=== PATIENT | female | born 1985 ===

== ENCOUNTER 2025-02-05 22:44 | Emergency (ER) | payer OTHER, SELFPAY ==
--- OUTSIDE RECORDS SUMMARY | 2024-12-25 08:00 | XMS_ITS | Encounter Summary ---
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 [address] [place] [phone] Phone: tel: fax: Department of Oncology in [place], [place] [address] [place] [phone] Phone: tel: Referral ID Status Reason Start Date Expiration Date V isits Requested Visits Authorized [id number] Authorized 11/26/2024 05/26/2025 12 99 Encounter Details Date Type Department Care Team (Late st Contact Info) Description 12/25/2024 9:00 AM CDT Lab Department of Oncology in [place], [place] [address] [place] [phone] Bradley Booker M.D. [address] [place] [phone] 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) (Primary Dx) Social History Tobacco Use Types Packs/Day Years Used Date Smoking Tobacco: Never Passive Smoke Exposure: Never Smokeless Tobacco: Never Alcohol Use Standard Drinks/Week Comments Never 0 (1 standard drink = 0.6 oz pur e alcohol) Hunger Vital Sign Answer Date Recorded Within the past 12 months, y ou worried that your food would run out before you got the money to buy more. Never true 11/18/19 25 Within the past 12 months, t he food you bought just didn't last and you didn't have money to get more. Never true 11/17/2024 PRAPARE - Transportation Answer Date Re corded In the past 12 months, has l ack of transportation kept you from medical appointments or from getting medications? No 04/2024 In the past 12 months, has l ack of transportation kept you from meetings, work, or from getting things needed for daily living? No 11/17/2024 [facility] Utilities Answer Date Recorded In the past 12 months has e electric, gas, oil, or water company threatened to shut off services in your home? No 11/17/2024 Housing Stability Answer Date Recorded What is your living situation today? I have a [facility] place to live 11/17/2024 Comments No Sex and Gender Information Value Date Recorded Sex Assigned at Female 11/17/2024 12:38 PM CDT Legal Sex Female 12:31 PM CDT Gender Identity Female 11/17/2024 12:38 PM CDT Sexual Orientation Straight 11/17/2024 12 :38 PM CDT documented as of this encounter Plan of Treatment Upcoming Encounters Date Type Department Care Team (Latest Contact Info) Description 02/12/2025 8:45 AM TURNER SPLITTER MACHINE OPERATOR Lab Department of Oncology in [address] [phone] Bradley Booker M.D. [address] [place] [phone] 02/12/2025 11:30 AM TURNER SPLITTER MACHINE OPERATOR Infusion Department of Oncology in [address] [phone] Bradley Booker M.D. [address] [place] [phone] 02/17/2025 9:15 AM TURNER SPLITTER MACHINE OPERATOR Clinical Communication Virtual Review in [place], [place] 200 [place] [address] 02/18/2025 8:00 AM TURNER SPLITTER MACHINE OPERATOR Lab Department of Oncology in [place], [place] [address] [place] [phone] Bradley Booker M.D. [address] [place] [phone] 02/18/2025 10:00 AM TURNER SPLITTER MACHINE OPERATOR Office Visit Division of Hematology in [place], [place] [address] [place] [phone] Latrice Gomez M.D. [address] [place] [phone] 02/18/2025 10:30 AM TURNER SPLITTER MACHINE OPERATOR Infusion Department of Oncology in [place], [place] [address] [place] [phone] Bradley Booker M.D. [address] [place] [phone] 02/26/2025 7:00 AM TURNER SPLITTER MACHINE OPERATOR Lab Department of Oncology in [place], [place] [address] [place] [phone] Bradley Booker M.D. [address] [place] [phone] 02/26/2025 9:00 AM TURNER SPLITTER MACHINE OPERATOR Infusion Department of Oncology in [address] [phone] Bradley Booker M.D. [address] [place] [phone] 03/05/2025 7:00 AM TURNER SPLITTER MACHINE OPERATOR Lab Department of Oncology in [address] [phone] Bradley Booker M.D. [address] [place] [phone] 03/05/2025 9:00 AM TURNER SPLITTER MACHINE OPERATOR Infusion Department of Oncology in [place], [place] [address] [place] [phone] Bradley Booker M.D. [address] [place] [phone] 03/19/2025 10:30 AM TURNER SPLITTER MACHINE OPERATOR Lab Department of Laboratory Medicine and Pathology, [facility] in [place], [place] [address] [place] [phone] Bradley Booker M.D. [address] [place] [phone] 03/19/2025 2:00 PM TURNER SPLITTER MACHINE OPERATOR Infusion Department of Oncology in [address] [phone] Bradley Booker M.D. [address] [place] [phone] 03/23/2025 10:00 AM TURNER SPLITTER MACHINE OPERATOR Telemedicine Division of Breast and Melanoma Surgical Oncology in [address] [phone] Kell Craven APRN, C.N.P., D.N.P. [address] [place] [phone] 03/25/2025 3:20 PM TURNER SPLITTER MACHINE OPERATOR Comprehensive Visit Department of Oncology in [address] [phone] Kilo Patel APRN, C.N.P., D.N.P. [address] [place] [phone] 04/08/2025 9:30 AM TURNER SPLITTER MACHINE OPERATOR Clinical Communication Virtual Review in [place], [place] 200 [place] [address] 04/09/2025 8:00 AM TURNER SPLITTER MACHINE OPERATOR Lab Department of Oncology in [place], [place] [address] [place] [phone] Bradley Booker M.D. [address] [place] [phone] 04/09/2025 10:00 AM TURNER SPLITTER MACHINE OPERATOR Office Visit Department of Oncology in [place], [place] [address] [place] [phone] Bardley Booker M.D. [address] [place] [phone] 04/09/2025 11:00 AM TURNER SPLITTER MACHINE OPERATOR Infusion Department of Oncology in [place], [place] [address] [place] [phone] Bradley Booker M.D. 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 Blood (Blood, Venous) 12/25/2024 9:24 AM CDT 12/25/2024 9:30 AM CDT Bradley Booker M.D. LAB BLOOD ADD-ON Final Result [facility] 200 [place] [address], [facility] DTL [facility] 200 [place] [address] * (ABNORMAL) CBC, Chemotherapy, No Alerts (12/25/2024 9:24 AM CDT) [facility] Hemoglobin 12.5 11.6 - 15.0 g/dL 12/25/2024 9:36 AM CDT [facility] Platelet Count 376(H) 157 - 371 x10(9)/L 12/25/2024 9:36 AM CDT [facility] Leukocytes 5.6 3.4 - 9.6 x10(9)/L 12/25/2024 9:36 AM CDT [facility] Neutrophils 3.55 1.56 - 6.45 x10(9)/L 12/25/2024 9:36 AM CDT [facility] Blood (Blood, Venous) 12/25/2024 9:24 AM CDT 12/25/2024 9:34 AM CDT Bradley Booker M.D. LAB BLOOD ADD-ON Final Result Performing Organization Address City/[facility]/ZIP Co de Phone Number [facility] 200 [place] [address], [facility] METH [facility] 200 [place] [address] DHPM [facility] 200 [place] [address] documented in this encounter Visit Diagnoses Diagnosis 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)- Primary documented in this encounter Administered Medications Inactive Administered Medications - up to 3 most recent administrations Medication Order MAR Action Action Date Dose Rate Site heparin flush 500 Units 500 Units, intra-catheter, As needed, line care, Starting on Sat12/25/24 at 0909, When IVAD accessed and not infusing: When no infusion to maintain patency flush every 7 days following NaCL flush. 5 mL (500 units) of Heparin 100 units/mL to each port/lumen. When IVAD not accessed or infusing: When no infusion to maintain patency flush every 28 days following NaCL flush. 5 mL (500 units) of Heparin 100 units/mL to each port/lumen.Indications:Malignan t Neoplasm Of Breast 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 (HCC) Given 12/25/2024 9:10 AM CDT 500 Units sodium chloride 0.9 % injection 20-40 mL 20-40 mL, intra-catheter, As needed, line care, Starting on Sat12/25/24 at 0909, When IVAD accessed and infusing: Flush prior to blood sampling, post blood transfusion or post blood sampling. 20 mL to each port/lumen.Indications:Malignan t Neoplasm Of Breast 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 (HCC) Given 12/25/2024 9:10 AM CDT 40 mL documented in this encounter Additional Health Concerns Infection Onset Date Last Indicated Resolved Time Protective Environment 12/11/2024 12/11/2024 documented as of this encounter
--- OUTSIDE RECORDS SUMMARY | 2024-12-25 10:00 | XMS_ITS | Encounter Summary ---
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 [address] [place] [phone] Phone: tel: fax: Department of Oncology in [place], [place] [address] [place] [phone] Phone: tel: Referral ID Status Reason Start Date Expiration Date V isits Requested Visits Authorized [id number] Authorized 11/26/2024 05/26/2025 12 99 Encounter Details Date Type Department Care Team (Late st Contact Info) Description 12/25/2024 11:00 AM CDT Infusion Department of Oncology in [place], [place] [address] [place] [phone] Katrina Yarbrough M.D. [address] [place] [address] [phone] 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 [...] things needed for daily living? No 11/17/2024 [facility] Utilities Answer Date Recorded In the past 12 months has e electric, gas, oil, or water company threatened to shut off services in your home? No 11/17/2024 Housing Stability Answer Date Recorded What is your living situation today? I have a [facility] place to live 11/17/2024 Comments No Sex and Gender Information Value Date Recorded Sex Assigned at Female 11/17/2024 12:38 PM CDT Legal Sex Female 12:31 PM CDT Gender Identity Female 11/17/2024 12:38 PM CDT Sexual Orientation Straight 11/17/2024 12 :38 PM CDT documented as of this encounter Last Filed Vital Signs Vital Sign Reading Time Taken Comments Blood Pressure 123/73 12/25/2024 11:54 AM CDT Pulse 75 12/25/2024 11:54 AM CDT Temperature 36.3 C (97.3 F) 12/25/2024 11:54 AM CDT Respiratory Rate - - Oxygen Saturation - - Inhaled Oxygen Concentration - - Weight 101 kg (223 lb 7 oz) 12/25/2024 11:54 AM CDT Height - - Body Mass Index 37.5 11/20/2024 9:41 AM CDT documented in this encounter Plan of Treatment Upcoming Encounters Date Type Department Care Team (Latest Contact Info) Description 02/12/2025 8:45 AM PUFF IRON OPERATOR Lab Department of Oncology in [place], [place] 200 [place] [address] Bradley Booker M.D. 200 [place] [phone] 02/12/2025 11:30 AM PUFF IRON OPERATOR Infusion Department of Oncology in [address] [phone] Bradley Booker M.D. [address] [place] [phone] 02/17/2025 9:15 AM PUFF IRON OPERATOR Clinical Communication Virtual Review in [place], [place] 200 [place] [phone] 02/18/2025 8:00 AM PUFF IRON OPERATOR Lab Department of Oncology in [address] [phone] Bradley Booker M.D. [address] [place] [phone] 02/18/2025 10:00 AM PUFF IRON OPERATOR Office Visit Division of Hematology in [address] [phone] Latrice Gomez M.D. [address] [place] [phone] 02/18/2025 10:30 AM PUFF IRON OPERATOR Infusion Department of Oncology in [address] [phone] Bradley Booker M.D. [address] [place] [phone] 02/26/2025 7:00 AM PUFF IRON OPERATOR Lab Department of Oncology in [address] [phone] Bradley Booker M.D. [address] [place] [phone] 02/26/2025 9:00 AM PUFF IRON OPERATOR Infusion Department of Oncology in [address] [phone] Bradley Booker M.D. [address] [place] [phone] 03/05/2025 7:00 AM PUFF IRON OPERATOR Lab Department of Oncology in [place], [place] [address] [place] [address] Bradley Booker M.D. [address] [place] [phone] 03/05/2025 9:00 AM PUFF IRON OPERATOR Infusion Department of Oncology in [place], [place] [address] [place] [phone] Bradley Booker M.D. [address] [place] [phone] 03/19/2025 10:30 AM PUFF IRON OPERATOR Lab Department of Laboratory Medicine and Pathology, [facility] in [place], [place] [address] [place] [phone] Bradley Booker M.D. [address] [place] [phone] 03/19/2025 2:00 PM PUFF IRON OPERATOR Infusion Department of Oncology in [place], [place] [address] [place] [phone] Bradley Booker M.D. [address] [place] [phone] 03/23/2025 10:00 AM PUFF IRON OPERATOR Telemedicine Division of Breast and Melanoma Surgical Oncology in [place], [place] [address] [place] [phone] Kell Craven APRN, C.N.P., D.N.P. [address] [place] [phone] 03/25/2025 3:20 PM PUFF IRON OPERATOR Comprehensive Visit Department of Oncology in [address] [phone] Kilo Patel APRN, C.N.P., D.N.P. [address] [place] [phone] 04/08/2025 9:30 AM PUFF IRON OPERATOR Clinical Communication Virtual Review in [place], [place] 200 [place] [address] 04/09/2025 8:00 AM PUFF IRON OPERATOR Lab Department of Oncology in [address] [phone] Bradley Booker M.D. [address] [place] [phone] 04/09/2025 10:00 AM PUFF IRON OPERATOR Office Visit Department of Oncology in [address] [phone] Bradley Booker M.D. [address] [place] [phone] 04/09/2025 11:00 AM PUFF IRON OPERATOR Infusion Department of Oncology in [address] [phone] Bradley Booker M.D. [address] [place] [phone] documented as of this encounter Visit Diagnoses Diagnosis 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)- Primary documented in this encounter Administered Medications Inactive Administered Medications - up to 3 most recent administrations Medication Order MAR Action Action Date Dose Rate Site CARBOplatin 230 mg in NaCl 0.9% 298 mL IVPB (Paraplatin) 230 mg (rounded from 225 mg, Target AUC = 1.5), intravenous, at 596 mL/hr, Administer over 30 Minutes, Once, On Sat12/25/24 at 1345, For 1 doseIndications: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) New Bag 12/25/2024 2:00 PM CDT 230 mg 596 mL/hr dexAMETHasone injection 10 mg (Decadron) 10 mg, intravenous, Once, On Sat12/25/24 at 1215, For 1 doseIndications: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) Given 12/25/2024 12:17 PM CDT 10 mg diphenhydrAMINE injection 25 mg (BenadryL) 25 mg, intravenous, Once, On Sat12/25/24 at 1215, For 1 dose, Give prior to PACLitaxel.Indications:Hanna gnant Neoplasm Of Breast 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 (HCC) Given 12/25/2024 12:17 PM CDT 25 mg famotidine injection 20 mg (Pepcid) 20 mg, intravenous, Once, On Sat12/25/24 at 1215, For 1 dose, Give prior to PACLitaxelIndications:Malig nant Neoplasm Of Breast 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 (HCC) Given 12/25/2024 12:17 PM CDT 20 mg heparin flush 500 Units 500 Units, intra-catheter, As needed, line care, Starting on Sat12/25/24 at 1148, When IVAD accessed and not infusing: When no infusion to maintain patency flush every 7 days following NaCL flush. 5 mL (500 units) of Heparin 100 units/mL to each port/lumen. When IVAD not accessed or infusing: When no infusion to maintain patency flush every 28 days following NaCL flush. 5 mL (500 units) of Heparin 100 units/mL to each port/lumen.Indications:Hanna gnant Neoplasm Of Breast 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 (HCC) Given 12/25/2024 2:36 PM CDT 500 Units PACLitaxeL 174 mg in NaCl 0.9% (non-PVC/non-DEHP) 304 mL IVPB (TaxoL) 174 mg (rounded from 173.6 mg = 80 mg/m2 2.17 m2 Treatment Plan BSA from Measured weight), intravenous, at 304 mL/hr, Administer over 1 Hours, Once, On Sat12/25/24 at 1245, For 1 dose, Administer via 0.2 or 0.22 micron filter (Use non-PVC container and set). Administer via 0.2 or 0.22 micron filter.Indications:Malignan t Neoplasm Of Breast 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 (HCC) New Bag 12/25/2024 12:59 PM CDT 174 mg 304 mL/hr palonosetron injection 0.25 mg (Aloxi) 0.25 mg, intravenous, Once, On Sat12/25/24 at 1215, For 1 doseIndications: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) Given 12/25/2024 12:17 PM CDT 0.25 mg sodium chloride 0.9 % injection 10-20 mL 10-20 mL, intra-catheter, As needed, line care, Starting on Sat12/25/24 at 1148, When IVAD accessed and infusing: Flush prior to and following infusion, between multiple consecutive infusions. 10 mL to each port/lumen.Indications:Hanna gnant Neoplasm Of Breast 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 (HCC) Given 12/25/2024 2:36 PM CDT 10 mL Given 12/25/2024 12:17 PM CDT 10 mL documented in this encounter Additional Health Concerns Infection Onset Date Last Indicated Resolved Time Protective Environment 12/11/2024 12/11/2024 documented as of this encounter
--- OUTSIDE RECORDS SUMMARY | 2024-12-28 14:34 | XMS_ITS | Encounter Summary ---
Author Organization [facility] Address [address] [place] [id number] Care Team Providers Care Instructional Systems Design Consultant Name Role Phone [facility] Primar Care Provider Reason for Visit * Reason Comments Fever Encounter Details Date Type Department Care Team (Late st Contact Info) Description 12/28/2024 3:34 PM CDT - 12/28/2024 5:13 PM CDT Emergency [facility] Emergency Dept [address] [place] [id number] Russ Ibrahim MD [facility] [address] [place], [place] [id number] Pneumonia of left lower lobe due to infectious organism (Primary Dx) Discharge Disposition: Home or Self Care Social History Tobacco Use Types Packs/Day Years Used Date Smoking Tobacco: Never Assessed Comments Unknown Sex and Gender Information Value Date Recorded Sex Assigned at Not on file Legal Sex Female 2:59 PM CDT Gender Identity Not on file Sexual Orientation Not on file documented as of this encounter Last Filed Vital Signs Vital Sign Reading Time Taken Comments Blood Pressure 112/64 12/28/2024 5:12 PM CDT Pulse 95 12/28/2024 5:12 PM CDT Temperature 37.7 C (99.9 F) 12/28/2024 3:31 PM CDT Respiratory Rate 18 12/28/2024 5:12 PM CDT Oxygen Saturation 99% 12/28/2024 5:12 PM CDT Inhaled Oxygen Concentration - - Weight 101.6 kg (223 lb 15.8 oz) 12/28/2024 3:31 PM CDT Height 162.6 cm (5' 4) 12/28/2024 3:31 PM CDT Body Mass Index 38.45 12/28/2024 3:31 PM CDT documented in this encounter Discharge Instructions * Discharge Instructions* Russ Ibrahim MD - 12/28/2024 4:51 PM CDT We have recommended antibiotics due to active chemotherapy treatment in the setting of an x-ray that shows some inflammation of the left lung base. This still could be viral. Your COVID test is negative you are not neutropenic. No signs of sepsis. Cultures of the blood were obtained if these grow something that need different treatment we will call you. Please complete course of antibiotics and follow-up with your hematology oncologist at [facility]. Thanks for your patience and understanding today. * Attachments The following attachments cannot be sent through Care Everywhere. * Pneumonia (Maldivian) documented in this encounter Medications at Time of Discharge doxycycline hyclate (VIBRAMYCIN) 100 MG capsule Take 1 capsule (100 mg) by mouth 2 times daily for 7 days. 14 capsule 12/28/2024 01/04/2025 documented as of this encounter ED Notes * Russ Ibrahim MD - 12/28/2024 3:42 PM CDT Emergency Department Note History of Present Illness Chief Complaint Fever HPI Jazlyn Martin is a 39 year old female who presents with fever. Patient is a 39-year-old female with known breast cancer currently being treated at [facility] with chemotherapy last chemotherapy dose was Saturday. Today she developed a fever to 102. Oncology clinic where she was recommended to go to the nearest emergency room for assessment. Patient has had a slight cough. Did not take any meds for fever. Has had no vomiting or diarrhea. Other children have been sick with a cough and 1 had an ear infection. Independent Historian None Review of External Notes Past Medical History Medical History and Problem List No past medical history on file. Medications No current outpatient medications on file. Surgical History No past surgical history on file. Physical Exam Patient Vitals for the past 24 hrs: BP Temp Temp src Pulse Resp SpO2 Height Weight 12/28/24 1531 116/65 99.9 ??F (37.7 ??C) Oral 101 18 96 % 1.626 m (5' 4) 101.6 kg (223 lb 15.8 oz) Physical Exam Vitals and nursing note reviewed. HENT: Head: Normocephalic. Eyes: Pupils: Pupils are equal, round, and reactive to light. Cardiovascular: Rate and Rhythm: Normal rate. Pulmonary: Effort: Pulmonary effort is normal. Abdominal: General: Abdomen is flat. Bowel sounds are normal. Musculoskeletal: General: Normal range of motion. Skin: General: Skin is warm. Capillary Refill: Capillary refill takes less than 2 seconds. Neurological: General: No focal deficit present. Mental Status: She is alert. Psychiatric: Mood and Affect: Mood normal. Diagnostics Lab Results Labs Ordered and Resulted from Time of ED Arrival to Time of ED Departure COMPREHENSIVE METABOLIC PANEL (LIMITED OCCURRENCES) - Abnormal Result Value Sodium 136 Potassium 3.9 Carbon Dioxide (CO2) 26 Anion Gap 11 Urea Nitrogen 11.6 Creatinine 0.70 GFR Estimate >90 Calcium 9.1 Chloride 99 Glucose 112 (*) Alkaline Phosphatase 80 AST 16 ALT 16 Protein Total 7.3 Albumin 4.4 Bilirubin Total 0.6 ROUTINE UA WITH MICROSCOPIC REFLEX TO CULTURE - Abnormal Color Urine Light Yellow Appearance Urine Clear Glucose Urine Negative Bilirubin Urine Negative Ketones Urine Negative Specific [place] Urine 1.020 Blood Urine Negative pH Urine 8.5 (*) Protein Albumin Urine Negative Urobilinogen Urine Normal Nitrite Urine Negative Leukocyte Esterase Urine Negative Mucus Urine Present (*) RBC Urine <1 WBC Urine 1 Squamous Epithelials Urine 3 (*) CBC WITH PLATELETS AND DIFFERENTIAL - Abnormal WBC Count 11.69 (*) RBC Count 4.44 Hemoglobin 12.7 Hematocrit 37.9 MCV 85.4 MCH 28.6 MCHC 33.5 RDW 13.4 Platelet Count 391 % Neutrophils 90.1 % Lymphocytes 4.9 % Monocytes 3.8 % Eosinophils 0.3 % Basophils 0.3 % Immature Granulocytes 0.6 NRBCs per 100 WBC 0.0 Absolute Neutrophils 10.53 (*) Absolute Lymphocytes 0.57 (*) Absolute Monocytes 0.44 Absolute Eosinophils 0.04 Absolute Basophils 0.04 Absolute Immature Granulocytes 0.07 Absolute NRBCs <0.03 LACTIC ACID WHOLE BLOOD WITH 1X REPEAT IN 2 HR WHEN >2 - Normal Lactic Acid, Initial 0.7 INFLUENZA A/B, RSV AND SARS-COV2 PCR - Normal Influenza A PCR Negative Influenza B PCR Negative RSV PCR Negative SARS CoV2 PCR Negative BLOOD CULTURE BLOOD CULTURE Imaging Chest XR, PA & LAT Final Result IMPRESSION: Mild opacity in the left lower lobe retrocardiac region may be related to atelectasis or pneumonia. The right lung is clear. Right Port-A-Cath, tip in the low SVC. No pleural effusions. Independent Interpretation CXR: haziness left lung base. ED Course Medications Administered Medications sodium chloride 0.9% BOLUS 1,000 mL (has no administration in time range) Procedures Procedures Discussion of Management None ED Course Additional Documentation None Medical Decision Making / Diagnosis [facility] Diagnoses: None MIPS None MDM Jazlyn Martin is a 39 year old female presents with self-described fever to 102. Has children at home are also ill. COVID and flu testing are negative. Patient is actively on chemotherapy. Lab work was ascertained due to port access and chemo. No neutropenia noted. Temperature here 99 9. IV fluidsgiven. No signs of sepsis. X-ray does confirm a small patchy pneumonia still could be viral patienthas a history of C. difficile 2 years ago but however due to active chemotherapy use and x-ray evidence for pneumonia recommended empiric antibiotics with doxycycline. Will recommend discharge home without signs of sepsis. Blood cultures pending at the time of discharge. Disposition The patient was discharged. Diagnosis ICD-10-CM 1. Pneumonia of left lower lobe due to infectious organism J18.9 Discharge Medications Current Discharge Medication List START taking these medications Details doxycycline hyclate (VIBRAMYCIN) 100 MG capsule Take 1 capsule (100 mg) by mouth 2 times daily for 7 days. Qty: 14 capsule, Refills: 0 MD Patrice Reich Brian Samuel, MD 12/28/24 1710 * Luanne Jimenez RN - 12/28/2024 3:30 PM CDT Pt comes in after having fever over 100.5 at home, pt currently receiving chemo for breast cancer. Pt's last run was on [place]. Pt had temp of 99.9 in triage. Pt states that her only symptoms are lethargy and malaise. documented in this encounter Plan of Treatment Not on file documented as of this encounter Procedures Procedure Name Priority Date/Time Associated Diagnosis Comments XR CHEST 2 VIEWS STAT 12/28/2024 4:29 PM CDT BLOOD CULTURE STAT 12/28/2024 4:15 PM CDT EXTRA TUBE STAT 12/28/2024 3:58 PM CDT EXTRA RED TOP TUBE STAT 12/28/2024 3: 58 PM CDT EXTRA BLUE TOP TUBE STAT 12/28/2024 3 :58 PM CDT LACTIC ACID WHOLE BLOOD WITH 1X REPEAT IN 2 HR WHEN >2 STAT 12/28/2024 3:57 PM CDT CBC WITH PLATELETS AND DIFFERENTIAL STAT 12/28/2024 3:57 PM CDT CBC WITH PLATELETS AND DIFFERENTIAL (LIMITED OCCURRENCES) STAT 12/28/2024 3:57 PM CDT COMPREHENSIVE METABOLIC PANEL (LIMITED OCCURRENCES) STAT 12/28/2024 3:57 PM CDT BLOOD CULTURE STAT 12/28/2024 3:57 PM CDT ROUTINE UA WITH MICROSCOPIC REFLEX TO CULTURE STAT 12/28/2024 3:54 PM CDT INFLUENZA A/B, RSV AND SARS-COV2 PCR STAT 12/28/2024 3:53 PM CDT documented in this encounter Results * Chest XR, PA & LAT (12/28/2024 4:29 PM CDT) Anatomical Region Laterality Modality Chest Digital Radiogra phy 12/28/2024 4:29 PM CDT Impressions 12/28/2024 4:41 PM CDT IMPRESSION: Mild opacity in the left lower lobe retrocardiac region may be related to atelectasis or pneumonia. The right lung is clear. Right Port-A-Cath, tip in the low SVC. No pleural effusions. Narrative 12/28/2024 4:41 PM CDT EXAM: XR CHEST 2 VIEWS LOCATION: [facility] DATE: 12/28/2024 INDICATION: Fever. Cough. COMPARISON: None. Procedure Note Paras Deng MD - 12/28/2024 EXAM: XR CHEST 2 VIEWS LOCATION: [facility] DATE: 12/28/2024 INDICATION: Fever. Cough. COMPARISON: None. IMPRESSION: Mild opacity in the left lower lobe retrocardiac region may berelated to atelectasis or pneumonia. The right lung is clear. [id number], tip in the low SVC. No pleural effusions. Russ Ibrahim MD IMG DIAGNOSTIC IMAGING O RDERABLES Final Result * Blood Culture Peripheral blood (BC) Arm, Left (12/28/2024 4:15 PM CDT) Culture No Growth 01/02/2025 8:46 PM CDT [facility] Peripheral blood (BC) STRUCTURE OF LEFT UPPER LIMB / Unknown Venipuncture / Unknown 12/28/2024 4:15 PM CDT 12/28/2024 4:18 PM CDT Russ Ibrahim MD LAB - MICRO GENERAL ORDE RABLES Final Result [facility] Inf. Diseases Diag. Lab [address] [facility] [place] [address], [place] * Extra Red Top Tube (12/28/2024 3:58 PM CDT) Hold Specimen JIC 12/28/2024 5:17 PM CDT [facility] Blood BLOOD SPECIMEN / Unknown Venipuncture / Unknown 12/28/2024 3:58 PM CDT 12/28/2024 4:04 PM CDT Russ Ibrahim MD LAB - BLOOD ORDERABLES F inal Result LABORATORY [facility] Lab [address] Lab (1st floor, no room number) [address] * Extra Blue Top Tube (12/28/2024 3:58 PM CDT) Hold Specimen JIC 12/28/2024 5:17 PM CDT [facility] Blood BLOOD SPECIMEN / Unknown Venipuncture / Unknown 12/28/2024 3:58 PM CDT 12/28/2024 4:04 PM CDT Russ Ibrahim MD LAB - BLOOD ORDERABLES F inal Result Performing Organization Address City/[facility]/ZIP Co de Phone Number LABORATORY [facility] Lab [address] Lab (1st floor, no room number) [address] * (ABNORMAL) CBC with platelets and differential (12/28/2024 3:57 PM CDT) WBC Count 11.69(H) 4.00 - 11.00 10e3/uL 12/28/2024 4:09 PM CDT [facility] RBC Count 4.44 3.80 - 5.20 10e6/uL 12/28/2024 4:09 PM CDT [facility] Hemoglobin 12.7 11.7 - 15.7 g/dL 12/28/2024 4:09 PM CDT [facility] Hematocrit 37.9 35.0 - 47.0 % 12/28/2024 4:09 PM CDT [facility] MCV 85.4 78.0 - 100.0 fL 12/28/2024 4:09 PM CDT [facility] MCH 28.6 26.5 - 33.0 pg 12/28/2024 4:09 PM CDT [facility] MCHC 33.5 31.5 - 36.5 g/dL 12/28/2024 4:09 PM CDT [facility] RDW 13.4 10.0 - 15.0 % 12/28/2024 4:09 PM CDT [facility] Platelet Count 391 150 - 450 10e3/uL 12/28/2024 4:09 PM CDT [facility] % Neutrophils 90.1 % 12/28/2024 4:09 PM CDT [facility] % Lymphocytes 4.9 % 12/28/2024 4:09 PM CDT [facility] % Monocytes 3.8 % 12/28/2024 4:09 PM CDT [facility] % Eosinophils 0.3 % 12/28/2024 4:09 PM CDT [facility] % Basophils 0.3 % 12/28/2024 4:09 PM CDT [facility] % Immature Granulocytes 0.6 % 12/28/2024 4:09 PM CDT [facility] NRBCs per 100 WBC 0.0 <1.0 /100 12/28/2024 4:09 PM CDT [facility] Absolute Neutrophils 10.53(H) 1.60 - 8.30 10e3/uL 12/28/2024 4:09 PM CDT [facility] Absolute Lymphocytes 0.57(L) 0.80 - 5.30 10e3/uL 12/28/2024 4:09 PM CDT [facility] Absolute Monocytes 0.44 0.00 - 1.30 10e3/uL 12/28/2024 4:09 PM CDT [facility] Absolute Eosinophils 0.04 0.00 - 0.70 10e3/uL 12/28/2024 4:09 PM CDT [facility] Absolute Basophils 0.04 0.00 - 0.20 10e3/uL 12/28/2024 4:09 PM CDT [facility] Absolute Immature Granulocytes 0.07 <=0.40 10e3/uL 12/28/2024 4:09 PM CDT [facility] Absolute NRBCs <0.03 10e3/uL 12/28/2024 4:09 PM CDT [facility] Blood BLOOD SPECIMEN / Unknown Venipuncture / Unknown 12/28/2024 3:57 PM CDT 12/28/2024 4:04 PM CDT Russ Ibrahim MD LAB - BLOOD ORDERABLES F inal Result LABORATORY [facility] Lab [address] Lab (1st floor, no room number) [place] [address] * Blood Culture Peripheral blood (BC) Arm, Right (12/28/2024 3:57 PM CDT) Culture No Growth 01/02/2025 6:16 PM CDT [facility] Peripheral blood (BC) STRUCTURE OF RIGHT UPPER LIMB / Unknown Venipuncture / Unknown 12/28/2024 3:57 PM CDT 12/28/2024 4:04 PM CDT Russ Ibrahim MD LAB - MICRO GENERAL ORDE RABLES Final Result [facility] Inf. Diseases Diag. Lab [address] [facility] [place] [address] * Lactic acid whole blood with 1x repeat in 2 hr when >2 (12/28/2024 3:57 PM CDT) Pathologist [facility] Lactic Acid, Initial 0.7 0.7 - 2.0 mmol/L 12/28/2024 4:08 PM CDT LABORATORY Blood BLOOD SPECIMEN / Unknown Venipuncture / Unknown 12/28/2024 3:57 PM CDT 12/28/2024 4:06 PM CDT Russ Ibrahim MD LAB - BLOOD ORDERABLES F inal Result LABORATORY [facility] [address] Lab (1st floor, no room number) [place] [address] * (ABNORMAL) Comprehensive Metabolic Panel (Limited Occurrences) (12/28/2024 3:57 PM CDT) Sodium 136 135 - 145 mmol/L 12/28/2024 4:30 PM CDT LABORATORY Potassium 3.9 3.4 - 5.3 mmol/L 12/28/2024 4:30 PM CDT LABORATORY Carbon Dioxide (CO2) 26 22 - 29 mmol/L 12/28/2024 4:30 PM CDT LABORATORY Anion Gap 11 7 - 15 mmol/L 12/28/2024 4:30 PM CDT LABORATORY Urea Nitrogen 11.6 6.0 - 20.0 mg/dL 12/28/2024 4:30 PM CDT LABORATORY Creatinine 0.70 0.51 - 0.95 mg/dL 12/28/2024 4:30 PM CDT LABORATORY GFR Estimate >90 >60 mL/min/1.7 3m2 12/28/2024 4:30 PM CDT LABORATORY Comment:eGFR calculated us2020 CKD-EPI equation. Calcium 9.1 8.8 - 10.4 mg/dL 12/28/2024 4:30 PM CDT LABORATORY Chloride 99 98 - 107 mmol/L 12/28/2024 4:30 PM CDT LABORATORY Glucose 112(H) 70 - 99 mg/dL 12/28/2024 4:30 PM CDT LABORATORY Alkaline Phosphatase 80 40 - 150 U/L 12/28/2024 4:30 PM CDT LABORATORY AST 16 0 - 45 U/L 12/28/2024 4:30 PM CDT LABORATORY ALT 16 0 - 50 U/L 12/28/2024 4:30 PM CDT LABORATORY Protein Total 7.3 6.4 - 8.3 g/dL 12/28/2024 4:30 PM CDT LABORATORY Albumin 4.4 3.5 - 5.2 g/dL 12/28/2024 4:30 PM CDT LABORATORY Bilirubin Total 0.6 <=1.2 mg/dL 12/28/2024 4:30 PM CDT LABORATORY Blood BLOOD SPECIMEN / Unknown Venipuncture / Unknown 12/28/2024 3:57 PM CDT 12/28/2024 4:04 PM CDT us Russ Ibrahim MD LAB - BLOOD ORDERABLES F inal Result LABORATORY [facility] Lab [address] Lab (1st floor, no room number) [place] [address], [facility] * (ABNORMAL) UA with Microscopic reflex to Culture (12/28/2024 3:54 PM CDT) Color Urine Light Yellow Colorless, Straw, Light Yellow, Yellow 12/28/2024 4:15 PM CDT LABORATORY Appearance Urine Clear Clear 12/29/19 4:15 PM CDT LABORATORY Glucose Urine Negative Negative mg/dL 12/28/2024 4:15 PM CDT LABORATORY Bilirubin Urine Negative Negative 4:15 PM CDT LABORATORY Ketones Urine Negative Negative mg/dL 12/28/2024 4:15 PM CDT LABORATORY Specific [place] Urine 1.020 1.003 - 1.035 12/28/2024 4:15 PM CDT LABORATORY Blood Urine Negative Negative 12/28/2024 4:15 PM CDT LABORATORY pH Urine 8.5(H) 5.0 - 7.0 12/28/2024 4:15 PM CDT LABORATORY Protein Albumin Urine Negative Negative mg/dL 12/28/2024 4:15 PM CDT LABORATORY Urobilinogen Urine Normal Normal mg/dL 12/28/2024 4:15 PM CDT LABORATORY Nitrite Urine Negative Negative 12/28/2024 4:15 PM CDT LABORATORY Leukocyte Esterase Urine Negative Negative 12/28/2024 4:15 PM CDT LABORATORY Mucus Urine Present(A) None Seen /LPF 12/28/2024 4:15 PM CDT LABORATORY RBC Urine <1 <=2 /HPF 12/28/2024 4:15 PM CDT LABORATORY WBC Urine 1 <=5 /HPF 12/28/2024 4:15 PM CDT LABORATORY Squamous Epithelials Urine 3(H) <=1 /HPF 12/28/2024 4:15 PM CDT LABORATORY Urine MID-STREAM URINE SPECIMEN / Unknown Non-blood Collection / Unknown 12/28/2024 3:54 PM CDT 12/28/2024 4:03 PM CDT Narrative LABORATORY - 12/28/2024 4:15 PM CDT Urine Culture not indicated Russ Ibrahim MD LAB - URINE ORDERABLES F inal Result LABORATORY [facility] [address] [facility] Lab (1st floor, no room number) [place] [address], [facility] * Influenza A/B, RSV and SARS-CoV2 PCR (COVID-19) Nose (12/28/2024 3:53 PM CDT) Influenza A PCR Negative Negative 12/28/2024 4:45 PM CDT [facility] Influenza B PCR Negative Negative 12/28/2024 4:45 PM CDT [facility] RSV PCR Negative Negative 12/28/2024 4:45 PM CDT LABORATORY SARS CoV2 PCR Negative Negative 12/28/2024 4:45 PM CDT LABORATORY Comment:NEGATIVE: SARS-CoV-2 (COVID-19) RNA not detected, presumed negative. Swab NASAL STRUCTURE / Unknown Non-blood Collection / Unknown 12/28/2024 3:53 PM CDT 12/28/2024 4:04 PM CDT Narrative LABORATORY - 12/28/2024 4:45 PM CDT Testing was performed using the Xpert Xpress CoV2/Flu/RSV Assay on the [employer] GeneXpert Instrument. This test should be ordered for the detection of SARS- CoV2, influenza, and RSV viruses in individuals with signs and symptoms of respiratory tract infection. This test is for in vitro diagnostic use under the [place] FDA for laboratories certified under CLIA to perform high or moderate complexity testing. This test has been [place] FDA cleared. A negative result does not rule out the presence of PCR inhibitors in the specimen or target RNA in concentration below the limit of detection for the assay. If only one viral target is positive but coinfection with multiple targets is suspected, the sample should be re-tested with another FDA cleared, approved, or authorized test, if coninfection would change clinical management. This test was validated by the [facility]. These laboratories are certified under the Clinical Laboratory Improvement Amendments of 1988 (CLIA-88) as qualified to perfom high complexity laboratory testing. Russ Ibrahim MD LAB - MICRO GENERAL ABDALLAHector CORTESMELISSA Final Result [facility] Lab [address] [facility] Lab (1st floor, no room number) [place] [address], [facility] documented in this encounter Visit Diagnoses Diagnosis Pneumonia of left lower lobe due to infectious organism- Primary documented in this encounter Administered Medications Inactive Administered Medications - up to 3 most recent administrations Medication Order MAR Action Action Date Dose Rate Site doxycycline hyclate (VIBRAMYCIN) capsule 100 mg STAT, 100 mg, Oral, ONCE, On Sat12/28/24 at 1655, For 1 dose, Administer at least 2 hours before or after aluminum, calcium, iron, zinc or magnesium containing products., Indications: Community Acquired PneumoniaIndications:Commu nity Acquired Pneumonia $Given 12/28/2024 5:08 PM CDT 100 mg sodium chloride 0.9% BOLUS 1,000 mL Intravenous, 1,000 mL, ONCE, at 1,000 mL/hr, Administer over 1 Hours, On Sat12/28/24 at 1545, For 1 dose $New Bag 12/28/2024 4:01 PM CDT 1,000 mLs 1000 mL/hr documented in this encounter Active and Recently Administered Medications Times are shown in CDT. Scheduled Medication Order 12/26/2024 12/27/2024 12/28/2024 doxycycline hyclate (VIBRAMYCIN) capsule 100 mg (COMPLETED) STAT, 100 mg, Oral, ONCE, On Sat12/28/24 at 1655, For 1 dose, Administer at least 2 hours before or after aluminum, calcium, iron, zinc or magnesium containing products., Indications: Community Acquired Pneumonia 1708 ($Given - Provi jacob: Terra Archibald RN) sodium chloride 0.9% BOLUS 1,000 mL (COMPLETED) Intravenous, 1,000 mL, ONCE, at 1,000 mL/hr, Administer over 1 Hours, On Sat12/28/24 at 1545, For 1 dose 1601 ($New Bag - Pro vider: Aga Ying RN)1700 (Stopped - Provider: Terra Archibald RN) documented in this encounter Additional Health Concerns Infection Onset Date Last Indicated Resolved Time Rule Out COVID-19 12/28/2024 12/28/202412/28/2024 4:45 PM CDT documented as of this encounter Care Teams Instructional Systems Design Consultant Relationship Specialty Start Date End Date [facility] [address] [place] [address] [address] PCP - General 12/28/24 documented as of this encounter
--- OUTSIDE RECORDS SUMMARY | 2025-01-08 05:30 | XMS_ITS | Encounter Summary ---
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 [address] [place] [phone] Phone: tel: fax: Department of Oncology in [place], [place] [address] [place] [phone] Phone: tel: Referral ID Status Reason Start Date Expiration Date V isits Requested Visits Authorized [id number] Authorized 11/26/2024 05/26/2025 12 99 Encounter Details Date Type Department Care Team (Late st Contact Info) Description 01/08/2025 6:30 AM CDT Lab Department of Laboratory Medicine and Pathology, [facility] in [place], [place] [address] [place] [phone] Bradley Booker M.D. [address] [place] [phone] 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 [...] things needed for daily living? No 11/17/2024 [facility] Utilities Answer Date Recorded In the past 12 months has e electric, gas, oil, or water company threatened to shut off services in your home? No 11/17/2024 Housing Stability Answer Date Recorded What is your living situation today? I have a [facility] place to live 11/17/2024 Comments No [...] (Latest Contact Info) Description 02/12/2025 8:45 AM DERMATOLOGY PROCEDURAL PHYSICIAN Lab Department of Oncology in [place], [place] [address] [place] [address] Bradley Booker M.D. [address] [place] [address] 02/12/2025 11:30 AM DERMATOLOGY PROCEDURAL PHYSICIAN Infusion Department of Oncology in [place], [place] [address] [place] [phone] Bradley Booker M.D. [address] [place] [address] 02/17/2025 9:15 AM DERMATOLOGY PROCEDURAL PHYSICIAN Clinical Communication Virtual Review in [place], [place] 200 [place] [phone] 02/18/2025 8:00 AM DERMATOLOGY PROCEDURAL PHYSICIAN Lab Department of Oncology in [place], [place] [address] [place] [phone] Bradley Booker M.D. [address] [place] [phone] 02/18/2025 10:00 AM DERMATOLOGY PROCEDURAL PHYSICIAN Office Visit Division of Hematology in [place], [place] [address] [place] [phone] Latrice Gomez M.D. [address] [place] [phone] 02/18/2025 10:30 AM DERMATOLOGY PROCEDURAL PHYSICIAN Infusion Department of Oncology in [place], [place] [address] [place] [phone] Bradley Booker M.D. [address] [place] [phone] 02/26/2025 7:00 AM DERMATOLOGY PROCEDURAL PHYSICIAN Lab Department of Oncology in [address] [phone] Bradley Booker M.D. [address] [place] [phone] 02/26/2025 9:00 AM DERMATOLOGY PROCEDURAL PHYSICIAN Infusion Department of Oncology in [address] [phone] Bradley Booker M.D. [address] [place] [phone] 03/05/2025 7:00 AM DERMATOLOGY PROCEDURAL PHYSICIAN Lab Department of Oncology in [address] [phone] Bradley Booker M.D. [address] [place] [phone] 03/05/2025 9:00 AM DERMATOLOGY PROCEDURAL PHYSICIAN Infusion Department of Oncology in [place], [place] [address] [place] [phone] Bradley Booker M.D. [address] [place] [phone] 03/19/2025 10:30 AM DERMATOLOGY PROCEDURAL PHYSICIAN Lab Department of Laboratory Medicine and Pathology, [facility] in [place], [place] [address] [place] [phone] Bradley Booker M.D. [address] [place] [phone] 03/19/2025 2:00 PM DERMATOLOGY PROCEDURAL PHYSICIAN Infusion Department of Oncology in [address] [phone] Bradley Booker M.D. [address] [place] [phone] 03/23/2025 10:00 AM DERMATOLOGY PROCEDURAL PHYSICIAN Telemedicine Division of Breast and Melanoma Surgical Oncology in [address] [phone] Kell Craven APRN, C.N.P., D.N.P. [address] [place] [phone] 03/25/2025 3:20 PM DERMATOLOGY PROCEDURAL PHYSICIAN Comprehensive Visit Department of Oncology in [address] [phone] Kilo Patel APRN, C.N.P., D.N.P. [address] [place] [phone] 04/08/2025 9:30 AM DERMATOLOGY PROCEDURAL PHYSICIAN Clinical Communication Virtual Review in [address] [phone] 04/09/2025 8:00 AM DERMATOLOGY PROCEDURAL PHYSICIAN Lab Department of Oncology in [place], [place] [address] [place] [phone] Bradley Booker M.D. [address] [place] [phone] 04/09/2025 10:00 AM DERMATOLOGY PROCEDURAL PHYSICIAN Office Visit Department of Oncology in [place], [place] [address] [place] [phone] Bradley Booker M.D. [address] [place] [phone] 04/09/2025 11:00 AM DERMATOLOGY PROCEDURAL PHYSICIAN Infusion Department of Oncology in [place], [place] [address] [place] [phone] Bradley Booker M.D. [address] [place] [phone] documented as of this encounter Procedures Procedure Name Priority Date/Time Associated Diagnosis Comments THYROID FUNCTION CASCADE, S Routine 01/08/2025 7:03 AM CDT 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) CBC WITH DIFFERENTIAL, B Routine 01/08/2025 7:03 AM CDT 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) COMPREHENSIVE METABOLIC PANEL, S/P Routine 01/08/2025 7:03 AM CDT 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) documented in this encounter Results * Thyroid Function [place] (01/08/2025 7:03 AM CDT) TSH, Sensitive 1.2 0.3 - 4.2 mIU/L 01/08/2025 8:04 AM CDT DTL Blood (Blood, Venous) 01/08/2025 7:03 AM CDT 01/08/2025 7:03 AM CDT us Bradley Booker M.D. LAB BLOOD ADD-ON Final Result [facility] [address] [place] [address], [place] DTL [facility] [address] [place] [address] * (ABNORMAL) Comprehensive Metabolic Panel (01/08/2025 7:03 AM CDT) [facility] Potassium, S 4.5 3.6 - 5.2 mmol/L 01/08/2025 8:04 AM CDT DTL Sodium, S 139 135 - 145 mmol/L 01/08/2025 8:04 AM CDT DTL Chloride, S 105 98 - 107 mmol/L 01/08/2025 8:04 AM CDT DTL Bicarbonate, S 22 22 - 29 mmol/L 01/08/2025 8:04 AM CDT DTL Anion Gap 12 7 - 15 01/08/2025 8:04 AM CDT DTL BUN (Blood Urea Nitrogen), S 23(H) 6 - 21 mg/dL 01/08/2025 8:04 AM CDT DTL Creatinine 0.84 0.59 - 1.04 mg/dL 01/08/2025 8:04 AM CDT DTL Estimated GFR (eGFR) >90 >=60 mL/min/BS A 01/08/2025 8:04 AM CDT DTL Comment: Estimated GFR calculated using the 2020 CKD_EPI creatinine equation. Calcium, Total, S 9.4 8.6 - 10.0 mg/dL 01/08/2025 8:04 AM CDT DTL Glucose, S 99 70 - 140 mg/dL 01/08/2025 8:04 AM CDT DTL Protein, Total, S 6.5 6.3 - 7.9 g/dL 01/08/2025 8:04 AM CDT DTL Albumin, S 4.2 3.5 - 5.0 g/dL 01/08/2025 8:04 AM CDT DTL Aspartate Aminotransferase (AST), S 15 8 - 43 U/L 01/08/2025 8:04 AM CDT DTL Alkaline Phosphatase, S 97 35 - 104 U/L 01/08/2025 8:04 AM CDT DTL Alanine Aminotransferase (ALT), S 16 7 - 45 U/L 01/08/2025 8:04 AM CDT DTL Bilirubin, Total, S <0.2 0.0 - 1.2 mg/dL 01/08/2025 8:04 AM CDT DTL Blood (Blood, Venous) 01/08/2025 7:03 AM CDT 01/08/2025 7:03 AM CDT us Bradley Booker M.D. LAB BLOOD ADD-ON Final Result [facility] [address] [place] [address], [facility] [place] [address] [place] [address] * (ABNORMAL) CBC with Differential, Blood (01/08/2025 7:03 AM CDT) Hemoglobin 12.7 11.6 - 15.0 g/dL 01/08/2025 7:14 AM CDT DTL Hematocrit 39.2 35.5 - 44.9 % 01/08/2025 7:14 AM CDT DTL Erythrocytes 4.47 3.92 - 5.13 x10(12)/L 01/08/2025 7:14 AM CDT DTL MCV 87.7 78.2 - 97.9 fL 01/08/2025 7:14 AM CDT DTL RBC Distrib Width 13.9 12.2 - 16.1 % 01/08/2025 7:14 AM CDT DTL Platelet Count 354 157 - 371 x10(9)/L 01/08/2025 7:14 AM CDT DTL Leukocytes 8.5 3.4 - 9.6 x10(9)/L 01/08/2025 7:14 AM CDT DTL Neutrophils 5.64 1.56 - 6.45 x10(9)/L 01/08/2025 7:14 AM CDT DHPM Lymphocytes 1.58 0.95 - 3.07 x10(9)/L 01/08/2025 7:14 AM CDT DTL Monocytes 0.68 0.26 - 0.81 x10(9)/L 01/08/2025 7:14 AM CDT DTL Eosinophils 0.53(H) 0.03 - 0.48 x10(9)/L 01/08/2025 7:14 AM CDT DTL Basophils 0.03 0.01 - 0.08 x10(9)/L 01/08/2025 7:14 AM CDT DTL Blood (Blood, Venous) 01/08/2025 7:03 AM CDT 01/08/2025 7:03 AM CDT Bradley Booker M.D. LAB BLOOD ADD-ON Final Result [facility] [address] [place] [address], [facility] DTL [facility] [address] [place] [address] [facility] [address] [place] [address] documented in this encounter Visit Diagnoses Diagnosis 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)- Primary documented in this encounter Administered Medications Inactive Administered Medications - up to 3 most recent administrations Medication Order MAR Action Action Date Dose Rate Site heparin flush 500 Units 500 Units, intra-catheter, As needed, line care, Starting on Sat01/08/25 at 0649, When IVAD accessed and not infusing: When [...] 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 (HCC) Given 01/08/2025 6:51 AM CDT 500 Units sodium chloride 0.9 % injection 10-20 mL 10-20 mL, intra-catheter, As needed, line care, Starting on Sat01/08/25 at 0649, When IVAD accessed and infusing: Flush prior to and following infusion, between multiple consecutive infusions. 10 mL to each port/lumen.Indications:Malignan t Neoplasm Of Breast 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 (HCC) Given 01/08/2025 6:50 AM CDT 20 mL documented in this encounter Additional Health Concerns Infection Onset Date Last Indicated Resolved Time Protective Environment 12/11/2024 12/11/2024 documented as of this encounter
--- OUTSIDE RECORDS SUMMARY | 2025-01-08 07:30 | XMS_ITS | Encounter Summary ---
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 [address] [place] [phone] Phone: tel: fax: Department of Oncology in [place], [place] [address] [place] [phone] Phone: tel: Referral ID Status Reason Start Date Expiration Date V isits Requested Visits Authorized [id number] Authorized 11/26/2024 05/26/2025 12 99 Encounter Details Date Type Department Care Team ([facility] st Contact Info) Description 01/08/2025 8:30 AM CDT Office Visit Division of Hematology in [place], [place] [address] [place] [address] Bradley Booker M.D. [address] [place] [address] 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 [...] things needed for daily living? No 11/17/2024 [facility] Utilities Answer Date Recorded In the past 12 months has e electric, gas, oil, or water company threatened to shut off services in your home? No 11/17/2024 Housing Stability Answer Date Recorded What is your living situation today? I have a [facility] place to live 11/17/2024 Comments No Sex and Gender Information Value Date Recorded Sex Assigned at Female 11/17/2024 12:38 PM CDT Legal Sex Female 12:31 PM CDT Gender Identity Female 11/17/2024 12:38 PM CDT Sexual Orientation Straight 11/17/2024 12 :38 PM CDT documented as of this encounter Last Filed Vital Signs Vital Sign Reading Time Taken Comments Blood Pressure 136/81 01/08/2025 8:20 AM CDT Pulse 82 01/08/2025 8:20 AM CDT Temperature 36.1 C (97 F) 01/08/2025 8:20 AM CDT Respiratory Rate 16 01/08/2025 8:20 AM CDT Oxygen Saturation 97% 01/08/2025 8:20 AM CDT Inhaled Oxygen Concentration - - Weight 101 kg (222 lb 10.6 oz) 01/08/2025 8:20 A M CDT Height 164.5 cm (5' 4.76) 01/08/2025 8:20 AM CD T Body Mass Index 37.32 01/08/2025 8:20 AM CDT documented in this encounter Progress Notes * Bradley Booker M.D. - 01/08/2025 8:30 AM CDT PRIMARY CARE PHYSICIAN No primary care provider on file. LOCAL ONCOLOGIST No care steam trap worker to display [facility]IMARY [facility] Katrina Yarbrough M.D. CHIEF COMPLAINT / REASON FOR VISIT Jazlyn Martin is a 39 y.o. 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 This may represent a lactating adenoma, given clinical history. Ultrasound breast/axilla: Left, 09/04/2024. There is a hypoechoic multilobulated mass in the left breast 11:00 in the region of palpable concern in previous biopsy. This measures 6.4 x 6.2 x 3.7 cm (previously 4.3 x 4.2 x 2.9 cm). No other discrete mass identified. Ultrasound breast/axilla: Left,11/05/2024.There is a large complicated collection within the left breast at 11:00 measuring at least 8 cm. No associated color Doppler blood flow. This is compatible with postoperative hematoma or seroma at patient's excisional biopsy site. The left axilla demonstrates three mildly enlarged lymph nodes with eccentric cortical thickening, which are suspicious. Positron emission tomography (PET) scan: Skull base to thigh,11/05/2024.Impression. 1. Postsurgical changes of the left breast with presumed hematoma in the medial left breast measuring up to 6.3 x 9.1 cm. Small focal areas of increased radiotracer uptake along the margin of the hematoma and elsewhere in the left breast as detailed above, nonspecific and may be postsurgical or physiologic. 2. Multiple hypermetabolic, enlarged left level I and II axillary lymph nodes as detailed above, suspicious for elian metastatic disease. 3. No suspicious hypermetabolic lymphadenopathy elsewhere or evidence of distant metastatic disease. Breast MRI November 24, 2024: Right breast: Marked diffuse enhancement consistent with lactational changes. Right axilla: No adenopathy Left breast: Marked background enhancement consistent with lactational changes. Fluid collection inthe left inner upper breast measuring 4.7 x 3.2 x 3.5 cm consistent with postoperative seroma. Extending lateral and inferior from the excisional biopsy site there is mass and non-mass enhancement involving all 4 quadrants over 8.1 x 10.3 x 7.5 cm, highly suggestive of residual malignancy. This extends to the subareolar left breast. Skin thickening and enhancement of the darya areolar and medial left breast concerning for inflammatory carcinoma. No chest wall involvement. Left axilla: At least 10 abnormal left level 1 axillary lymph nodes, largest 1 measuring 2.3 x 2.1 cm with a clip artifact. Method conglomerate of left level 2 lymph nodes measuring 3.7 x 1.5 cm and 2 to 3 abnormal level 3 lymph nodes. Chest wall: No internal mammary lymphadenopathy. Bilateral diagnostic mammography November 25, 2024: Extremely dense breast tissue Postsurgical changes on the left. A prominent diffuse left breast skin thickening and edema concerning for inflammatory breast cancer Enlarged left axillary lymph node with biopsy clip (HydroMARK tight coil) Left breast ultrasound November 25, 2024: Enlarged biopsy-proven left axillary lymph node with clip, well seen sonographically At 06:00 4 cm from the nipple there is an irregular hypoechoic mass measuring 9 x 5 x 8 mm, correlating with focal enhancement on MRI. In the upper outer left breast and additional areas of the left inferior breast in areas of non mass enhancement on MRI, there is vague hypoechoic areas likely representing combination of postsurgical changes and possible residual malignancy. No discrete sonographic target exists. Diffuse skin thickening and subcutaneous edema throughout the left breast. The lesion at 6 o'clock position 4 cm fromthe nipple can be biopsied if it would change clinical management. November 25, 2024: Left breast skin punch biopsy completed 04/28/2024 Biopsy/Pathology Biopsy: Core biopsy, Left 11:00, 6 cmfn; Clip: Unknown Features of lactating adenoma, negative for malignancy Per [facility] Review: Breast, left, 11 o'clock, 6 cm from nipple, ultrasound-guided needle core biopsy ([id number]; 04/28/2024): Breast parenchyma with lactational/secretory changes. Small minute fragments of detached malignant epithelial cells. 10/26/2024 Biopsy/Pathology Biopsy: Excisional biopsy, Left; Clip: Not done invasive ductal carcinoma measuring 15 mm in greatest dimension/DCIS; Grade: 3/3. Extensive LVI identified. Hormone receptor testing: Estrogen negative, Progesterone negative, HER2 2+ (equivocal), FISH negative (HER2/CEP17 ratio and average HER2 copy number), and Ki-67 80%. Margin Status for Invasive Carcinoma: Invasive carcinoma present at margin Margin(s) Involved by Invasive Carcinoma: Inferior - Multifocal; Lateral - Unifocal Distance from Invasive Carcinoma to Anterior Margin: <1 mm Distance from Invasive Carcinoma to Superior Margin: <1 mm Distance from Invasive Carcinoma to Medial Margin: 2 mm Margin Status for DCIS: All margins negative for DCIS, 2 mm from closest superior margin Per [facility] Review 10/26/2024 Clinical Stage Staging form: Breast, AJCC 8th Edition - Clinical stage from 10/26/2024: Stage IIIC (cT4d, cN1, cM0, G3, ER-, FL-, HER2-) Stage prefix: Initial diagnosis Histologic grading system: 3 grade system 11/02/2024 Genetic Testing and Tumor Genotyping Genetic testing: Done, results negative. 11/05/2024 Biopsy/Pathology Biopsy: Lymph node biopsy, Left axilla; Clip: Unknown Metastatic Carcinoma consistent with breast primary Hormone receptor testing: Not done. Per [facility] Review 12/11/2024 - Chemotherapy PACLitaxel / CARBOplatin AUC 1.5 / Pembrolizumab Start Date: 12/11/2024 03/11/2025 - Chemotherapy DOXOrubicin / cycloPHOSphamide / Pembrolizumab Start Date: 03/11/2025 (Planned) ONC General HPI REVIEW OF SYSTEMS REVIEW OF SYSTEMS OBJECTIVE Vitals: 01/08/25 0820 BP: 136/81 Pulse: 82 Resp: 16 Temp: 36.1 ??C SpO2: 97% PHYSICAL EXAM Physical Exam General: The patient is alert and oriented and in no acute distress. Head: Examined and normal. Eyes: Pupils are symmetric. ENT: No lesions of the oropharynx. Lymph: No palpable cervical, supraclavicular, or axillary adenopathy bilaterally. Breast: L breast with skin changes, hard palpable mass retroareolar. Heart: Regular rate and rhythm. Lungs: Clear to auscultation bilaterally. Abdomen: Soft, nontender with normal bowel sounds present. Extremities: Warm and well perfused with no peripheral upper or lower extremity edema bilaterally LABORATORY DATA Lab data reviewed. RADIOLOGICAL DATA Radiology data reviewed. 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 We discussed her case in length. We explained that at the moment, our best course of action is to initiate chemo-immunotherapy neoadjuvantly. We recommended weekly Carboplatin AUC 1.5/Taxol 80mg/m2 + Pembro for 4 cycles, followed by dose dense AC (Doxorubicin+Cyclophosphamide) + Pembro for 4 cycles, totaling 12 weeks of treatment prior to surgical resection. If she gets pCR, we will proceed with 9 cycles of single agent Pembro. If any residual disease postop - we will recommend 8 cycles of Capecitabine and Pembro. We discussed side effects in detail. Patient is not interested in fertility preservation but wanted to see integrative oncology. C1 initiated on 12/10. Plan - Proceed with C2 of Weekly Carbo/Taxol + Pembro - Will follow her and consult Dr Yarbrough as needed - Recommended discontinuation of - Apoorva appreciative and agreeable. She will find a local provider in the coming month and potentially transition care locally. - Patient knows how to reach me. PATIENT EDUCATION Ready to learn, no apparent learning barriers were identified; learning preferences include listening. Explained diagnosis and treatment plan; patient expressed understanding of the content. ADMINISTRATIVE BILLING I spent 30 minutes face to face and non-face to face caring for the patient today. documented in this encounter Plan of Treatment Upcoming Encounters Date Type Department Care Team (Latest Contact Info) Description 02/12/2025 8:45 AM SUPERVISOR PRESSING DEPARTMENT Lab Department of Oncology in [place], [place] [address] [place] [phone] Bradley Booker M.D. [address] [place] [phone] 02/12/2025 11:30 AM SUPERVISOR PRESSING DEPARTMENT Infusion Department of Oncology in [address] [phone] Bradley Booker M.D. [address] [place] [phone] 02/17/2025 9:15 AM SUPERVISOR PRESSING DEPARTMENT Clinical Communication Virtual Review in [place], [place] [address] [place] [phone] 02/18/2025 8:00 AM SUPERVISOR PRESSING DEPARTMENT Lab Department of Oncology in [address] [phone] Bradley Booker M.D. [address] [place] [phone] 02/18/2025 10:00 AM SUPERVISOR PRESSING DEPARTMENT Office Visit Division of Hematology in [address] [phone] Latrice Gomez M.D. [address] [place] [phone] 02/18/2025 10:30 AM SUPERVISOR PRESSING DEPARTMENT Infusion Department of Oncology in [address] [phone] Bradley Booker M.D. [address] [place] [phone] 02/26/2025 7:00 AM SUPERVISOR PRESSING DEPARTMENT Lab Department of Oncology in [place], [place] [address] [place] [phone] Bradley Booker M.D. [address] [place] [phone] 02/26/2025 9:00 AM SUPERVISOR PRESSING DEPARTMENT Infusion Department of Oncology in [place], [place] [address] [place] [phone] Bradley Booker M.D. [address] [place] [phone] 03/05/2025 7:00 AM SUPERVISOR PRESSING DEPARTMENT Lab Department of Oncology in [place], [place] [address] [place] [phone] Bradley Booker M.D. [address] [place] [phone] 03/05/2025 9:00 AM SUPERVISOR PRESSING DEPARTMENT Infusion Department of Oncology in [place], [place] [address] [place] [phone] Bradley Booker M.D. [address] [place] [phone] 03/19/2025 10:30 AM SUPERVISOR PRESSING DEPARTMENT Lab Department of Laboratory Medicine and Pathology, [facility] in [place], [place] [address] [place] [phone] Bradley Booker M.D. [address] [place] [phone] 03/19/2025 2:00 PM SUPERVISOR PRESSING DEPARTMENT Infusion Department of Oncology in [place], [place] [address] [place] [phone] Bradley Booker M.D. [address] [place] [phone] 03/23/2025 10:00 AM SUPERVISOR PRESSING DEPARTMENT Telemedicine Division of Breast and Melanoma Surgical Oncology in [place], [place] [address] [place] [phone] Kell Craven APRN, C.N.P., D.N.P. [address] [place] [phone] 03/25/2025 3:20 PM SUPERVISOR PRESSING DEPARTMENT Comprehensive Visit Department of Oncology in [place], [place] [address] [place] [phone] Kilo Patel APRN, C.N.P., D.N.P. [address] [place] [phone] 04/08/2025 9:30 AM SUPERVISOR PRESSING DEPARTMENT Clinical Communication Virtual Review in [place], [place] [address] [place] [phone] 04/09/2025 8:00 AM SUPERVISOR PRESSING DEPARTMENT Lab Department of Oncology in [address] [phone] Bradley Booker M.D. [address] [place] [phone] 04/09/2025 10:00 AM SUPERVISOR PRESSING DEPARTMENT Office Visit Department of Oncology in [address] [phone] Bradley Booker M.D. [address] [place] [phone] 04/09/2025 11:00 AM SUPERVISOR PRESSING DEPARTMENT Infusion Department of Oncology in [address] [phone] Bradley Booker M.D. 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) Expected: 02/19/2025, Expires: 02/19/2026 Cortisol Lab Routine 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) Expected: 02/19/2025, Expires: 02/19/2026 CBC, Chemotherapy, No Alerts Lab Routine 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) Expected: 02/26/2025, Expires: 02/26/2026 Creatinine with Estimated GFR Lab Routine 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) Expected: 02/26/2025, Expires: 02/26/2026 CBC, Chemotherapy, No Alerts Lab Routine 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) Expected: 03/05/2025, Expires: 03/05/2026 Creatinine with Estimated GFR Lab Routine 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) Expected: 03/05/2025, Expires: 03/05/2026 Scheduled Referrals Name Type Priority Associated Diagnoses Orde r Schedule Oncology office visit (clinic) Outpatient Referral Routine 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
--- OUTSIDE RECORDS SUMMARY | 2025-01-08 08:00 | XMS_ITS | Encounter Summary ---
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 [address] [place] [phone] Phone: tel: fax: Department of Oncology in [place], [place] [address] [place] [phone] Phone: tel: Referral ID Status Reason Start Date Expiration Date V isits Requested Visits Authorized [id number] Authorized 11/26/2024 05/26/2025 12 99 Encounter Details Date Type Department Care Team (Late st Contact Info) Description 01/08/2025 9:00 AM CDT Infusion Department of Oncology in [place], [place] [address] [place] [phone] Katrina Yarbrough M.D. [address] [place] [phone] 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 [...] things needed for daily living? No 11/17/2024 [facility] Utilities Answer Date Recorded In the past 12 months has e electric, gas, oil, or water company threatened to shut off services in your home? No 11/17/2024 Housing Stability Answer Date Recorded What is your living situation today? I have a [facility] place to live 11/17/2024 Comments No Sex [...] (Latest Contact Info) Description 02/12/2025 8:45 AM START UP SPECIALIST Lab Department of Oncology in [address] [phone] Bradley Booker M.D. [address] [place] [phone] 02/12/2025 11:30 AM START UP SPECIALIST Infusion Department of Oncology in [place], [place] [address] [place] [phone] Bradley Booker M.D. [address] [place] [phone] 02/17/2025 9:15 AM START UP SPECIALIST Clinical Communication Virtual Review in [place], [place] 200 [place] [phone] 02/18/2025 8:00 AM START UP SPECIALIST Lab Department of Oncology in [place], [place] [address] [place] [phone] Bradley Booker M.D. [address] [place] [phone] 02/18/2025 10:00 AM START UP SPECIALIST Office Visit Division of Hematology in [place], [place] [address] [place] [phone] Latrice Gomez M.D. [address] [place] [phone] 02/18/2025 10:30 AM START UP SPECIALIST Infusion Department of Oncology in [place], [place] [address] [place] [phone] Bradley Booker M.D. [address] [place] [phone] 02/26/2025 7:00 AM START UP SPECIALIST Lab Department of Oncology in [place], [place] [address] [place] [phone] Bradley Booker M.D. [address] [place] [phone] 02/26/2025 9:00 AM START UP SPECIALIST Infusion Department of Oncology in [place], [place] [address] [place] [phone] Bradley Booker M.D. [address] [place] [phone] 03/05/2025 7:00 AM START UP SPECIALIST Lab Department of Oncology in [address] [phone] Bradley Booker M.D. [address] [place] [phone] 03/05/2025 9:00 AM START UP SPECIALIST Infusion Department of Oncology in [address] [phone] Bradley Booker M.D. [address] [place] [phone] 03/19/2025 10:30 AM START UP SPECIALIST Lab Department of Laboratory Medicine and Pathology, [facility], in [place], [place] [address] [place] [phone] Bradley Booker M.D. [address] [place] [phone] 03/19/2025 2:00 PM START UP SPECIALIST Infusion Department of Oncology in [address] [phone] Bradley Booker M.D. [address] [place] [phone] 03/23/2025 10:00 AM START UP SPECIALIST Telemedicine Division of Breast and Melanoma Surgical Oncology in [address] [phone] Kell Craven APRN, C.N.P., D.N.P. [address] [place] [phone] 03/25/2025 3:20 PM START UP SPECIALIST Comprehensive Visit Department of Oncology in [address] [phone] Kilo Patel APRN, C.N.P., D.N.P. [address] [place] [phone] 04/08/2025 9:30 AM START UP SPECIALIST Clinical Communication Virtual Review in [address] [phone] 04/09/2025 8:00 AM START UP SPECIALIST Lab Department of Oncology in [place], [place] [address] [place] [phone] Bradley Booker M.D. [address] [place] [phone] 04/09/2025 10:00 AM START UP SPECIALIST Office Visit Department of Oncology in [place], [place] [address] [place] [phone] Bradley Booker M.D. [address] [place] [phone] 04/09/2025 11:00 AM START UP SPECIALIST Infusion Department of Oncology in [place], [place] [address] [place] [phone] Bradley Booker M.D. 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) Given 01/08/2025 9:48 AM CDT 10 mg diphenhydrAMINE injection 25 mg (BenadryL) 25 mg, intravenous, Once, On Sat01/08/25 at 0945, For 1 dose, Give prior to PACLitaxel.Indications:Hanna gnant Neoplasm Of Breast 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 (HCC) Given 01/08/2025 9:50 AM CDT 25 mg famotidine injection 20 mg (Pepcid) 20 mg, intravenous, Once, On Sat01/08/25 at 0945, For 1 dose, Give prior to PACLitaxelIndications:Maritza flores Neoplasm Of Breast 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 (HCC) Given 01/08/2025 9:47 AM CDT 20 mg heparin flush 500 Units 500 Units, intra-catheter, As needed, line care, Starting on Sat01/08/25 at 0924, When IVAD accessed and not infusing: When [...] 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 (HCC) Given 01/08/2025 12:58 PM CDT 500 Units PACLitaxeL 174 mg in NaCl 0.9% (non-PVC/non-DEHP) 304 mL IVPB (TaxoL) 174 mg (rounded from 173.6 mg = 80 mg/m2 2.17 m2 Treatment Plan BSA from Measured weight), intravenous, at 304 mL/hr, Administer over 1 Hours, Once, On Sat01/08/25 at 1030, For 1 dose, Administer via 0.2 or 0.22 micron filter.Indications:Malignan t Neoplasm Of Breast 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 (HCC) New Bag 01/08/2025 10:39 AM CDT 174 mg 304 mL/hr palonosetron injection 0.25 mg (Aloxi) 0.25 mg, intravenous, Once, On Sat01/08/25 at 0945, For 1 doseIndications: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 Do not shake. Use low protein binding filter (pore size of 0.2-5 micron).Indications:Maligna nt Neoplasm Of Breast 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 (HCC) New Bag 01/08/2025 12:22 PM CDT 200 mg 236 mL/hr sodium chloride 0.9 % injection 10-20 mL 10-20 mL, intra-catheter, As needed, line care, Starting on Sat01/08/25 at 0924, When IVAD accessed and infusing: Flush prior to and following infusion, between multiple consecutive infusions. 10 mL to each port/lumen.Indications:Hanna gnant Neoplasm Of Breast 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 (HCC) Given 01/08/2025 12:58 PM CDT 10 mL Given 01/08/2025 12:51 PM CDT 20 mL documented in this encounter Additional Health Concerns Infection Onset Date Last Indicated Resolved Time Protective Environment 12/11/2024 12/11/2024 documented as of this encounter
--- OUTSIDE RECORDS SUMMARY | 2025-01-15 06:00 | XMS_ITS | Encounter Summary ---
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 [address] [place] [phone] Phone: tel: fax: Department of Oncology in [place], [place] [address] [place] [phone] Phone: tel: Referral ID Status Reason Start Date Expiration Date V isits Requested Visits Authorized [id number] Authorized 11/26/2024 05/26/2025 12 99 Encounter Details Date Type Department Care Team (Late st Contact Info) Description 01/15/2025 7:00 AM CDT Lab Department of Oncology in [place], [place] [address] [place] [phone] Bradley Booker M.D. [address] [place] [phone] 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 [...] needed for daily living? No 11/17/2024 [facility] Utilities Answer Date Recorded In the past 12 months has e electric, gas, oil, or water company threatened to shut off services in your home? No 11/17/2024 Housing Stability Answer Date Recorded What is your living situation today? I have a [facility] place to live 11/17/2024 Comments No [...] (Latest Contact Info) Description 02/12/2025 8:45 AM REC THERAPIST Lab Department of Oncology in [address] [phone] Bradley Booker M.D. [address] [place] [phone] 02/12/2025 11:30 AM REC THERAPIST Infusion Department of Oncology in [address] [phone] Bradley Booker M.D. [address] [place] [phone] 02/17/2025 9:15 AM REC THERAPIST Clinical Communication Virtual Review in [place], [place] 200 [place] [phone] 02/18/2025 8:00 AM REC THERAPIST Lab Department of Oncology in [place], [place] [address] [place] [phone] Bradley Booker M.D. [address] [place] [phone] 02/18/2025 10:00 AM REC THERAPIST Office Visit Division of Hematology in [place], [place] [address] [place] [phone] Latrice Gomez M.D. [address] [place] [phone] 02/18/2025 10:30 AM REC THERAPIST Infusion Department of Oncology in [place], [place] [address] [place] [phone] Bradley Booker M.D. [address] [place] [phone] 02/26/2025 7:00 AM REC THERAPIST Lab Department of Oncology in [place], [place] [address] [place] [phone] Bradley Booker M.D. [address] [place] [phone] 02/26/2025 9:00 AM REC THERAPIST Infusion Department of Oncology in [address] [phone] Bradley Booker M.D. [address] [place] [phone] 03/05/2025 7:00 AM REC THERAPIST Lab Department of Oncology in [address] [phone] Bradley Booker M.D. [address] [place] [phone] 03/05/2025 9:00 AM REC THERAPIST Infusion Department of Oncology in [place], [place] [address] [place] [phone] Bradley Booker M.D. [address] [place] [phone] 03/19/2025 10:30 AM REC THERAPIST Lab Department of Laboratory Medicine and Pathology, [facility] in [place], [place] [address] [place] [phone] Bradley Booker M.D. [address] [place] [phone] 03/19/2025 2:00 PM REC THERAPIST Infusion Department of Oncology in [address] [phone] Bradley Booker M.D. [address] [place] [phone] 03/23/2025 10:00 AM REC THERAPIST Telemedicine Division of Breast and Melanoma Surgical Oncology in [address] [phone] Kell Craven APRN, C.N.P., D.N.P. [address] [place] [phone] 03/25/2025 3:20 PM REC THERAPIST Comprehensive Visit Department of Oncology in [address] [phone] Kilo Patel APRN, C.N.P., D.N.P. [address] [place] [phone] 04/08/2025 9:30 AM REC THERAPIST Clinical Communication Virtual Review in [place], [place] 200 [place] [address] 04/09/2025 8:00 AM REC THERAPIST Lab Department of Oncology in [place], [place] [address] [place] [phone] Bradley Booker M.D. [address] [place] [phone] 04/09/2025 10:00 AM REC THERAPIST Office Visit Department of Oncology in [place], [place] [address] [place] [phone] Bradley Booker M.D. [address] [place] [phone] 04/09/2025 11:00 AM REC THERAPIST Infusion Department of Oncology in [place], [place] [address] [place] [phone] Bradley Booker M.D. 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 Blood (Blood, Venous) 01/15/2025 7:23 AM CDT 01/15/2025 7:28 AM CDT Bradley Booker M.D. LAB BLOOD ADD-ON Final Result [facility] 200 [place] [address], [facility] DTL [facility] 200 [place] [address] * CBC, Chemotherapy, No Alerts (01/15/2025 7:23 AM CDT) [facility] Hemoglobin 12.5 11.6 - 15.0 g/dL 01/15/2025 7:36 AM CDT [facility] Platelet Count 245 157 - 371 x10(9)/L 01/15/2025 7:36 AM CDT [facility] Leukocytes 7.7 3.4 - 9.6 x10(9)/L 01/15/2025 7:36 AM CDT [facility] Neutrophils 3.65 1.56 - 6.45 x10(9)/L 01/15/2025 7:36 AM CDT [facility] Blood (Blood, Venous) 01/15/2025 7:23 AM CDT 01/15/2025 7:33 AM CDT Bradley Booker M.D. LAB BLOOD ADD-ON Final Result Performing Organization Address City/[facility]/ZIP Co de Phone Number [facility] 200 [place] [address], [facility] M[facility] 200 [place] [address] [facility] 200 [place] [address] documented in this encounter Visit Diagnoses Diagnosis 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)- Primary documented in this encounter Administered Medications Inactive Administered Medications - up to 3 most recent administrations Medication Order MAR Action Action Date Dose Rate Site heparin flush 500 Units 500 Units, intra-catheter, As needed, line care, Starting on Sat01/15/25 at 0705, When IVAD accessed and not infusing: When [...] 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 (HCC) Given 01/15/2025 7:15 AM CDT 500 Units sodium chloride 0.9 % injection 10-20 mL 10-20 mL, intra-catheter, As needed, line care, Starting on Sat01/15/25 at 0705, When IVAD accessed and infusing: Flush prior to and following infusion, between multiple consecutive infusions. 10 mL to each port/lumen.Indications:Malignan t Neoplasm Of Breast 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 (HCC) Given 01/15/2025 7:15 AM CDT 20 mL Given 01/15/2025 7:05 AM CDT 10 mL documented in this encounter Additional Health Concerns Infection Onset Date Last Indicated Resolved Time Protective Environment 12/11/2024 12/11/2024 documented as of this encounter
--- OUTSIDE RECORDS SUMMARY | 2025-01-15 08:00 | XMS_ITS | Encounter Summary ---
Author Organization [facility] Address [address] [place] [address] Care Team Providers Care Sales Product Specialist Name Role Phone Unavailable Primary Care Provider Unavailabl e Reason for Visit * Episode Based Medications (Routine) - Authorized Specialty Diagnoses / Procedures Referred By Wilian ambrose Referred To Contact Diagnoses 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) Procedures ME PALONOSETRON HCL ME PEMBROLIZUMAB INJ ME CARBOPLATIN INJECTION ME PACLITAXEL INJECTION Bradley Booker M.D. [address] [place] [phone] Phone: tel: fax: Department of Oncology in [place], [place] [address] [place] [phone] Phone: tel: Referral ID Status Reason Start Date Expiration Date V isits Requested Visits Authorized [id number] Authorized 11/26/2024 05/26/2025 12 99 Encounter Details Date Type Department Care Team (Late st Contact Info) Description 01/15/2025 9:00 AM CDT Infusion Department of Oncology in [place], [place] [address] [place] [phone] Bradley Booker M.D. [address] [place] [phone] 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 [...] things needed for daily living? No 11/17/2024 [facility] Utilities Answer Date Recorded In the past 12 months has e electric, gas, oil, or water company threatened to shut off services in your home? No 11/17/2024 Housing Stability Answer Date Recorded What is your living situation today? I have a [facility] place to live 11/17/2024 Comments No Sex and Gender Information Value Date Recorded Sex Assigned at Female 11/17/2024 12:38 PM CDT Legal Sex Female 12:31 PM CDT Gender Identity Female 11/17/2024 12:38 PM CDT Sexual Orientation Straight 11/17/2024 12 :38 PM CDT documented as of this encounter Last Filed Vital Signs Vital Sign Reading Time Taken Comments Blood Pressure 127/69 01/15/2025 9:46 AM CDT Pulse 72 01/15/2025 9:46 AM CDT Temperature 36.1 C (97 F) 01/15/2025 8:47 AM CDT Respiratory Rate 16 01/15/2025 9:46 AM CDT Oxygen Saturation - - Inhaled Oxygen Concentration - - Weight 100 kg (220 lb 14.4 oz) 01/15/2025 8:47 A M CDT Height - - Body Mass Index 37.03 01/08/2025 8:20 AM CDT documented in this encounter Plan of Treatment Upcoming Encounters Date Type Department Care Team (Latest Contact Info) Description 02/12/2025 8:45 AM FORM WORKER Lab Department of Oncology in [place], [place] 200 [place] [address] Bradley Booker M.D. [address] [place] [phone] 02/12/2025 11:30 AM FORM WORKER Infusion Department of Oncology in [place], [place] [address] [place] [phone] Bradley Booker M.D. [address] [place] [phone] 02/17/2025 9:15 AM FORM WORKER Clinical Communication Virtual Review in [place], [place] 200 [place] [address] 02/18/2025 8:00 AM FORM WORKER Lab Department of Oncology in [place], [place] [address] [place] [phone] Bradley Booker M.D. [address] [place] [phone] 02/18/2025 10:00 AM FORM WORKER Office Visit Division of Hematology in [place], [place] [address] [place] [phone] Latrice Gomez M.D. [address] [place] [phone] 02/18/2025 10:30 AM FORM WORKER Infusion Department of Oncology in [place], [place] [address] [place] [phone] Bradley Booker M.D. [address] [place] [phone] 02/26/2025 7:00 AM FORM WORKER Lab Department of Oncology in [place], [place] [address] [place] [phone] Bradley Booker M.D. [address] [place] [phone] 02/26/2025 9:00 AM FORM WORKER Infusion Department of Oncology in [place], [place] [address] [place] [address] Bradley Booker M.D. [address] [place] [phone] 03/05/2025 7:00 AM FORM WORKER Lab Department of Oncology in [place], [place] [address] [place] [phone] Bradley Booker M.D. [address] [place] [phone] 03/05/2025 9:00 AM FORM WORKER Infusion Department of Oncology in [place], [place] [address] [place] [phone] Bradley Booker M.D. [address] [place] [phone] 03/19/2025 10:30 AM FORM WORKER Lab Department of Laboratory Medicine and Pathology, [facility], in [place], [place] [address] [place] [address] Bradley Booker M.D. [address] [place] [phone] 03/19/2025 2:00 PM FORM WORKER Infusion Department of Oncology in [place], [place] [address] [place] [phone] Bradley Booker M.D. [address] [place] [phone] 03/23/2025 10:00 AM FORM WORKER Telemedicine Division of Breast and Melanoma Surgical Oncology in [place], [place] [address] [place] [phone] Kell Craven APRN, C.N.P., D.N.P. [address] [place] [phone] 03/25/2025 3:20 PM FORM WORKER Comprehensive Visit Department of Oncology in [address] [phone] Kilo Patel, DWAYNE, C.N.P., D.N.P. [address] [place] [phone] 04/08/2025 9:30 AM FORM WORKER Clinical Communication Virtual Review in [place], [place] 200 [place] [address] 04/09/2025 8:00 AM FORM WORKER Lab Department of Oncology in [address] [phone] Bradley Booker M.D. [address] [place] [phone] 04/09/2025 10:00 AM FORM WORKER Office Visit Department of Oncology in [address] [phone] Bradley Booker M.D. [address] [place] [phone] 04/09/2025 11:00 AM FORM WORKER Infusion Department of Oncology in [address] [phone] Bradley Booker M.D. 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) Given 01/15/2025 9:15 AM CDT 10 mg diphenhydrAMINE injection 25 mg (BenadryL) 25 mg, intravenous, Once, On Sat01/15/25 at 0915, For 1 dose, Give prior to PACLitaxel.Indications:Hanna gnant Neoplasm Of Breast 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 (HCC) Given 01/15/2025 9:15 AM CDT 25 mg famotidine injection 20 mg (Pepcid) 20 mg, intravenous, Once, On Sat01/15/25 at 0915, For 1 dose, Give prior to PACLitaxelIndications:Malig nant Neoplasm Of Breast 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 (HCC) Given 01/15/2025 9:15 AM CDT 20 mg heparin flush 500 Units 500 Units, intra-catheter, As needed, line care, Starting on Sat01/15/25 at 0849, When IVAD accessed and not infusing: When [...] 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 (HCC) Given 01/15/2025 11:29 AM CDT 500 Units PACLitaxeL 174 mg in NaCl 0.9% (non-PVC/non-DEHP) 304 mL IVPB (TaxoL) 174 mg (rounded from 173.6 mg = 80 mg/m2 2.17 m2 Treatment Plan BSA from Measured weight), intravenous, at 304 mL/hr, Administer over 1 Hours, Once, On Sat01/15/25 at 0945, For 1 dose, Administer via 0.2 or 0.22 micron filter (Use non-PVC container and set). Administer via 0.2 or 0.22 micron filter.Indications:Malignan t Neoplasm Of Breast 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 (HCC) New Bag 01/15/2025 9:46 AM CDT 174 mg 304 mL/hr palonosetron injection 0.25 mg (Aloxi) 0.25 mg, intravenous, Once, On Sat01/15/25 at 0915, For 1 doseIndications: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) Given 01/15/2025 9:15 AM CDT 0.25 mg sodium chloride 0.9 % injection 10-20 mL 10-20 mL, intra-catheter, As needed, line care, Starting on Sat01/15/25 at 0849, When IVAD accessed and infusing: Flush prior to and following infusion, between multiple consecutive infusions. 10 mL to each port/lumen.Indications:Hanna gnant Neoplasm Of Breast 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 (HCC) Given 01/15/2025 11:29 AM CDT 10 mL documented in this encounter Additional Health Concerns Infection Onset Date Last Indicated Resolved Time Protective Environment 12/11/2024 12/11/2024 documented as of this encounter
--- OUTSIDE RECORDS SUMMARY | 2025-01-22 08:00 | XMS_ITS | Encounter Summary ---
Author Organization [facility] Address [address] [place] [address] Care Team Providers Care Matchbook Maker Name Role Phone Unavailable Primary Care Provider Unavailabl e Reason for Visit * Episode Based Medications (Routine) - Authorized Specialty Diagnoses / Procedures Referred By Wilian ambrose Referred To Contact Diagnoses 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) Procedures ND PALONOSETRON HCL ND PEMBROLIZUMAB INJ ND CARBOPLATIN INJECTION ND PACLITAXEL INJECTION Bradley Booker M.D. [address] [place] [phone] Phone: tel: fax: Department of Oncology in [place], [place] [address] [place] [phone] Phone: tel: Referral ID Status Reason Start Date Expiration Date V isits Requested Visits Authorized [id number] Authorized 11/26/2024 05/26/2025 12 99 Encounter Details Date Type Department Care Team (Late st Contact Info) Description 01/22/2025 8:00 AM JACKAROO Lab Department of Oncology in [place], [place] [address] [place] [phone] Bradley Booker M.D. [address] [place] [phone] 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 [...] for daily living? No 11/17/[address] [facility] Utilities Answer Date Recorded In the past 12 months has e electric, gas, oil, or water company threatened to shut off services in your home? No 11/17/2024 Housing Stability Answer Date Recorded What is your living situation today? I have a [facility] place to live 11/17/2024 Comments No [...] (Latest Contact Info) Description 02/12/2025 8:45 AM JACKAROO Lab Department of Oncology in [address] [phone] Bradley Booker M.D. [address] [place] [phone] 02/12/2025 11:30 AM JACKAROO Infusion Department of Oncology in [address] [phone] Bradley Booker M.D. [address] [place] [phone] 02/17/2025 9:15 AM JACKAROO Clinical Communication Virtual Review in [place], [place] [address] [place] [phone] 02/18/2025 8:00 AM JACKAROO Lab Department of Oncology in [place], [place] [address] [place] [phone] Bradley Booker M.D. [address] [place] [phone] 02/18/2025 10:00 AM JACKAROO Office Visit Division of Hematology in [place], [place] [address] [place] [phone] Latrice Gomez M.D. [address] [place] [phone] 02/18/2025 10:30 AM JACKAROO Infusion Department of Oncology in [place], [place] [address] [place] [phone] Bradley Booker M.D. [address] [place] [phone] 02/26/2025 7:00 AM JACKAROO Lab Department of Oncology in [place], [place] [address] [place] [phone] Bradley Booker M.D. [address] [place] [phone] 02/26/2025 9:00 AM JACKAROO Infusion Department of Oncology in [address] [phone] Bradley Booker M.D. [address] [place] [phone] 03/05/2025 7:00 AM JACKAROO Lab Department of Oncology in [address] [phone] Bradley Booker M.D. [address] [place] [phone] 03/05/2025 9:00 AM JACKAROO Infusion Department of Oncology in [place], [place] [address] [place] [phone] Bradley Booker M.D. [address] [place] [phone] 03/19/2025 10:30 AM JACKAROO Lab Department of Laboratory Medicine and Pathology, [facility] in [place], [place] [address] [place] [phone] Bradley Booker M.D. [address] [place] [phone] 03/19/2025 2:00 PM JACKAROO Infusion Department of Oncology in [address] [phone] Bradley Booker M.D. [address] [place] [phone] 03/23/2025 10:00 AM JACKAROO Telemedicine Division of Breast and Melanoma Surgical Oncology in [address] [phone] Kell Craven APRN, C.N.P., D.N.P. [address] [place] [phone] 03/25/2025 3:20 PM JACKAROO Comprehensive Visit Department of Oncology in [address] [phone] Kilo Patel APRN, C.N.P., D.N.P. [address] [place] [phone] 04/08/2025 9:30 AM JACKAROO Clinical Communication Virtual Review in [address] [phone] 04/09/2025 8:00 AM JACKAROO Lab Department of Oncology in [place], [place] [address] [place] [phone] Bradley Booker M.D. [address] [place] [phone] 04/09/2025 10:00 AM JACKAROO Office Visit Department of Oncology in [place], [place] [address] [place] [phone] Bradley Booker M.D. [address] [place] [phone] 04/09/2025 11:00 AM JACKAROO Infusion Department of Oncology in [place], [place] [address] [place] [phone] Bradley Booker M.D. [address] [place] [phone] documented as of this encounter Procedures Procedure Name Priority Date/Time Associated Diagnosis Comments CBC CHEMO - NO ALERTS Routine 01/22/2025 8:31 AM JACKAROO 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) CREATININE WITH EGFR, S/P Routine 01/22/2025 8:31 AM JACKAROO 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) documented in this encounter Results * Creatinine with Estimated GFR (01/22/2025 8:31 AM JACKAROO) Creatinine 0.74 0.59 - 1.04 mg/dL 01/22/2025 9:33 AM JACKAROO DTL Estimated GFR (eGFR) >90 >=60 mL/min/BSA 01/22/2025 9:33 AM JACKAROO DTL Comment: Estimated GFR calculated using the 2020 CKD_EPI creatinine equation. Blood (Blood, Venous) 01/22/2025 8:31 AM JACKAROO 01/22/2025 9:00 AM JACKAROO us Bradley Booker M.D. LAB BLOOD ADD-ON Final Result [facility] 200 [place] [address], [facility] DTL [facility] 200 [place] [address] * CBC, Chemotherapy, No Alerts (01/22/2025 8:31 AM JACKAROO) Hemoglobin 11.8 11.6 - 15.0 g/dL 01/22/2025 8:53 AM JACKAROO METH Platelet Count 297 157 - 371 x10(9)/L 01/22/2025 8:53 AM JACKAROO METH Leukocytes 5.1 3.4 - 9.6 x10(9)/L 01/22/2025 8:53 AM JACKAROO METH Neutrophils 3.05 1.56 - 6.45 x10(9)/L 01/22/2025 8:53 AM JACKAROO [facility] Blood (Blood, Venous) 01/22/2025 8:31 AM JACKAROO 01/22/2025 8:51 AM JACKAROO us Bradley Booker M.D. LAB BLOOD ADD-ON Final Result Performing Organization Address City/[facility]/ZIP Co de Phone Number [facility] [address] [place] [address], [facility] METH [facility] [address] [place] [address] [facility] 200 [place] [address] documented in this encounter Visit Diagnoses Diagnosis 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)- Primary documented in this encounter Additional Health Concerns Infection Onset Date Last Indicated Resolved Time Protective Environment 12/11/2024 12/11/2024 documented as of this encounter
--- OUTSIDE RECORDS SUMMARY | 2025-01-22 10:00 | XMS_ITS | Encounter Summary ---
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 [address] [place] [phone] Phone: tel: fax: Department of Oncology in [place], [place] [address] [place] [phone] Phone: tel: Referral ID Status Reason Start Date Expiration Date V isits Requested Visits Authorized [id number] Authorized 11/26/2024 05/26/2025 12 99 Encounter Details Date Type Department Care Team (Late st Contact Info) Description 01/22/2025 10:00 AM CASHIER PAYMENTS RECEIVED Infusion Department of Oncology in [place], [place] [address] [place] [phone] Bradley Booker M.D. [address] [place] [phone] 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 [...] things needed for daily living? No 11/17/2024 [facility] Utilities Answer Date Recorded In the past 12 months has e electric, gas, oil, or water company threatened to shut off services in your home? No 11/17/2024 Housing Stability Answer Date Recorded What is your living situation today? I have a [facility] place to live 11/17/2024 Comments No Sex and Gender Information Value Date Recorded Sex Assigned at Female 11/17/2024 12:38 PM CDT Legal Sex Female 12:31 PM CDT Gender Identity Female 11/17/2024 12:38 PM CDT Sexual Orientation Straight 11/17/2024 12 :38 PM CDT documented as of this encounter Last Filed Vital Signs Vital Sign Reading Time Taken Comments Blood Pressure 114/64 01/22/2025 10:29 AM CASHIER PAYMENTS RECEIVED Pulse 75 01/22/2025 10:29 AM CASHIER PAYMENTS RECEIVED Temperature 36.6 C (97.9 F) 01/22/2025 10:29 AM CASHIER PAYMENTS RECEIVED Respiratory Rate 16 01/22/2025 10:29 AM CASHIER PAYMENTS RECEIVED Oxygen Saturation - - Inhaled Oxygen Concentration - - Weight 99.3 kg (219 lb 0.4 oz) 01/22/2025 10:29 AM CASHIER PAYMENTS RECEIVED Height - - Body Mass Index 36.71 01/08/2025 8:20 AM CDT documented in this encounter Plan of Treatment Upcoming Encounters Date Type Department Care Team (Latest Contact Info) Description 02/12/2025 8:45 AM CASHIER PAYMENTS RECEIVED Lab Department of Oncology in [place], [place] 200 [place] [phone] Bradley Booker M.D. [address] [place] [phone] 02/12/2025 11:30 AM CASHIER PAYMENTS RECEIVED Infusion Department of Oncology in [place], [place] [address] [place] [phone] Bradley Booker M.D. [address] [place] [phone] 02/17/2025 9:15 AM CASHIER PAYMENTS RECEIVED Clinical Communication Virtual Review in [place], [place] 200 [place] [phone] 02/18/2025 8:00 AM CASHIER PAYMENTS RECEIVED Lab Department of Oncology in [place], [place] [address] [place] [phone] Bradley Booker M.D. [address] [place] [phone] 02/18/2025 10:00 AM CASHIER PAYMENTS RECEIVED Office Visit Division of Hematology in [place], [place] [address] [place] [phone] Latrice Gomez M.D. [address] [place] [phone] 02/18/2025 10:30 AM CASHIER PAYMENTS RECEIVED Infusion Department of Oncology in [place], [place] [address] [place] [phone] Bradley Booker M.D. [address] [place] [phone] 02/26/2025 7:00 AM CASHIER PAYMENTS RECEIVED Lab Department of Oncology in [place], [place] [address] [place] [phone] Bradley Booker M.D. [address] [place] [phone] 02/26/2025 9:00 AM CASHIER PAYMENTS RECEIVED Infusion Department of Oncology in [place], [place] [address] [place] [phone] Bradley Booker M.D. [address] [place] [phone] 03/05/2025 7:00 AM CASHIER PAYMENTS RECEIVED Lab Department of Oncology in [place], [place] [address] [place] [phone] Bradley Booker M.D. [address] [place] [phone] 03/05/2025 9:00 AM CASHIER PAYMENTS RECEIVED Infusion Department of Oncology in [place], [place] [address] [place] [phone] Bradley Booker M.D. [address] [place] [phone] 03/19/2025 10:30 AM CASHIER PAYMENTS RECEIVED Lab Department of Laboratory Medicine and Pathology, [facility] in [place], [place] [address] [place] [phone] Bradley Booker M.D. [address] [place] [phone] 03/19/2025 2:00 PM CASHIER PAYMENTS RECEIVED Infusion Department of Oncology in [place], [place] [address] [place] [phone] Bradley Booker M.D. [address] [place] [phone] 03/23/2025 10:00 AM CASHIER PAYMENTS RECEIVED Telemedicine Division of Breast and Melanoma Surgical Oncology in [place], [place] [address] [place] [phone] Kell Cravne APRN, C.N.P., D.N.P. [address] [place] [phone] 03/25/2025 3:20 PM CASHIER PAYMENTS RECEIVED Comprehensive Visit Department of Oncology in [place], [place] [address] [place] [phone] Kilo Patel APRN, C.N.P., D.N.P. [address] [place] [phone] 04/08/2025 9:30 AM CASHIER PAYMENTS RECEIVED Clinical Communication Virtual Review in [place], [place] 200 [place] [address] 04/09/2025 8:00 AM CASHIER PAYMENTS RECEIVED Lab Department of Oncology in [address] [phone] Bradley Booker M.D. [address] [place] [phone] 04/09/2025 10:00 AM CASHIER PAYMENTS RECEIVED Office Visit Department of Oncology in [address] [phone] Bradley Booker M.D. [address] [place] [phone] 04/09/2025 11:00 AM CASHIER PAYMENTS RECEIVED Infusion Department of Oncology in [address] [phone] Bradley Booker M.D. 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) New Bag 01/22/2025 12:10 PM CASHIER PAYMENTS RECEIVED 230 mg 596 mL/hr dexAMETHasone injection 10 mg (Decadron) 10 mg, intravenous, Once, On Sat01/22/25 at 1100, For 1 doseIndications: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) Given 01/22/2025 10:41 AM CASHIER PAYMENTS RECEIVED 10 mg diphenhydrAMINE injection 25 mg (BenadryL) 25 mg, intravenous, Once, On Sat01/22/25 at 1100, For 1 dose, Give prior to PACLitaxel.Indications:Hanna gnant Neoplasm Of Breast 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 (HCC) Given 01/22/2025 10:42 AM CASHIER PAYMENTS RECEIVED 25 mg famotidine injection 20 mg (Pepcid) 20 mg, intravenous, Once, On Sat01/22/25 at 1100, For 1 dose, Give prior to PACLitaxelIndications:Malig nant Neoplasm Of Breast 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 (HCC) Given 01/22/2025 10:41 AM CASHIER PAYMENTS RECEIVED 20 mg heparin flush 500 Units 500 Units, intra-catheter, As needed, line care, Starting on Sat01/22/25 at 1035, When IVAD accessed and not infusing: When [...] 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 (HCC) Given 01/22/2025 12:42 PM CASHIER PAYMENTS RECEIVED 500 Units PACLitaxeL 174 mg in NaCl 0.9% (non-PVC/non-DEHP) 304 mL IVPB (TaxoL) 174 mg (rounded from 173.6 mg = 80 mg/m2 2.17 m2 Treatment Plan BSA from Measured weight), intravenous, at 304 mL/hr, Administer over 1 Hours, Once, On Sat01/22/25 at 1130, For 1 dose, Administer via 0.2 or 0.22 micron filter (Use non-PVC container and set). Administer via 0.2 or 0.22 micron filter.Indications:Malignan t Neoplasm Of Breast 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 (HCC) New Bag 01/22/2025 10:55 AM CASHIER PAYMENTS RECEIVED 174 mg 304 mL/hr palonosetron injection 0.25 mg (Aloxi) 0.25 mg, intravenous, Once, On Sat01/22/25 at 1100, For 1 doseIndications: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) Given 01/22/2025 10:42 AM CASHIER PAYMENTS RECEIVED 0.25 mg sodium chloride 0.9 % injection 10-20 mL 10-20 mL, intra-catheter, As needed, line care, Starting on Sat01/22/25 at 1035, When IVAD accessed and infusing: Flush prior to and following infusion, between multiple consecutive infusions. 10 mL to each port/lumen.Indications:Hanna gnant Neoplasm Of Breast 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 (HCC) Given 01/22/2025 12:42 PM CASHIER PAYMENTS RECEIVED 10 mL documented in this encounter Additional Health Concerns Infection Onset Date Last Indicated Resolved Time Protective Environment 12/11/2024 12/11/2024 documented as of this encounter
--- OUTSIDE RECORDS SUMMARY | 2025-01-29 07:30 | XMS_ITS | Encounter Summary ---
Author Organization [facility] Address [address] [place] [address] Care Team Providers Care It Risk And Assurance Manager Name Role Phone Unavailable Primary Care Provider Unavailabl e Reason for Visit * Episode Based Medications (Routine) - Authorized Specialty Diagnoses / Procedures Referred By Wilian ambrose Referred To Contact Diagnoses 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) Procedures ID PALONOSETRON HCL ID PEMBROLIZUMAB INJ ID CARBOPLATIN INJECTION ID PACLITAXEL INJECTION Bradley Booker M.D. [address] [place] [phone] Phone: tel: fax: Department of Oncology in [place], [place] [address] [place] [phone] Phone: tel: Referral ID Status Reason Start Date Expiration Date V isits Requested Visits Authorized [id number] Authorized 11/26/2024 05/26/2025 12 99 Encounter Details Date Type Department Care Team (Late st Contact Info) Description 01/29/2025 7:30 AM MATH COACH Lab Department of Oncology in [place], [place] [address] [place] [phone] Bradley Booker M.D. [address] [place] [phone] 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 [...] things needed for daily living? No 11/17/2024 [facility] Utilities Answer Date Recorded In the past 12 months has e electric, gas, oil, or water company threatened to shut off services in your home? No 11/17/2024 Housing Stability Answer Date Recorded What is your living situation today? I have a [facility] place to live 11/17/2024 Comments No [...] (Latest Contact Info) Description 02/12/2025 8:45 AM MATH COACH Lab Department of Oncology in [address] [phone] Bradley Booker M.D. [address] [place] [phone] 02/12/2025 11:30 AM MATH COACH Infusion Department of Oncology in [address] [phone] Bradley Booker M.D. [address] [place] [phone] 02/17/2025 9:15 AM MATH COACH Clinical Communication Virtual Review in [place], [place] 200 [place] [address] 02/18/2025 8:00 AM MATH COACH Lab Department of Oncology in [place], [place] [address] [place] [phone] Bradley Booker M.D. [address] [place] [phone] 02/18/2025 10:00 AM MATH COACH Office Visit Division of Hematology in [place], [place] [address] [place] [phone] Latrice Gomez M.D. [address] [place] [phone] 02/18/2025 10:30 AM MATH COACH Infusion Department of Oncology in [place], [place] [address] [place] [phone] Bradley Booker M.D. [address] [place] [phone] 02/26/2025 7:00 AM MATH COACH Lab Department of Oncology in [place], [place] [address] [place] [phone] Bradley Booker M.D. [address] [place] [phone] 02/26/2025 9:00 AM MATH COACH Infusion Department of Oncology in [address] [phone] Bradley Booker M.D. [address] [place] [phone] 03/05/2025 7:00 AM MATH COACH Lab Department of Oncology in [address] [phone] Bradley Booker M.D. [address] [place] [phone] 03/05/2025 9:00 AM MATH COACH Infusion Department of Oncology in [place], [place] [address] [place] [phone] Bradley Booker M.D. [address] [place] [phone] 03/19/2025 10:30 AM MATH COACH Lab Department of Laboratory Medicine and Pathology, [facility] in [place], [place] [address] [place] [phone] Bradley Booker M.D. [address] [place] [phone] 03/19/2025 2:00 PM MATH COACH Infusion Department of Oncology in [address] [phone] Bradley Booker M.D. [address] [place] [phone] 03/23/2025 10:00 AM MATH COACH Telemedicine Division of Breast and Melanoma Surgical Oncology in [address] [phone] Kell Craven APRN, C.N.P., D.N.P. [address] [place] [phone] 03/25/2025 3:20 PM MATH COACH Comprehensive Visit Department of Oncology in [address] [phone] Kilo Patel APRN, C.N.P., D.N.P. [address] [place] [phone] 04/08/2025 9:30 AM MATH COACH Clinical Communication Virtual Review in [address] [phone] 04/09/2025 8:00 AM MATH COACH Lab Department of Oncology in [place], [place] [address] [place] [phone] Bradley Booker M.D. [address] [place] [phone] 04/09/2025 10:00 AM MATH COACH Office Visit Department of Oncology in [place], [place] [address] [place] [phone] Bradley Booker M.D. [address] [place] [phone] 04/09/2025 11:00 AM MATH COACH Infusion Department of Oncology in [place], [place] [address] [place] [phone] Bradley Bookre M.D. [address] [place] [phone] documented as of this encounter Procedures Procedure Name Priority Date/Time Associated Diagnosis Comments THYROID FUNCTION CASCADE, S Routine 01/29/2025 8:06 AM MATH COACH 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) CBC WITH DIFFERENTIAL, B Routine 01/29/2025 8:06 AM MATH COACH 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) COMPREHENSIVE METABOLIC PANEL, S/P Routine 01/29/2025 8:06 AM MATH COACH 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) documented in this encounter Results * Thyroid Function Pettis (01/29/2025 8:06 AM MATH COACH) TSH, Sensitive 0.9 0.3 - 4.2 mIU/L 01/29/2025 10:57 AM MATH COACH DTL Blood (Blood, Venous) 01/29/2025 8:06 AM MATH COACH 01/29/2025 8:30 AM MATH COACH us Bradley Booker M.D. LAB BLOOD ADD-ON Final Result [facility] [address] [place] [address], [place] DTL [facility] [address] [place] [address] * Comprehensive Metabolic Panel (01/29/2025 8:06 AM MATH COACH) Pathologist [facility] Potassium, S 4.5 3.6 - 5.2 mmol/L 01/29/2025 9:34 AM MATH COACH DTL Sodium, S 139 135 - 145 mmol/L 01/29/2025 9:34 AM MATH COACH DTL Chloride, S 105 98 - 107 mmol/L 01/29/2025 9:34 AM MATH COACH DTL Bicarbonate, S 25 22 - 29 mmol/L 01/29/2025 9:34 AM MATH COACH DTL Anion Gap 9 7 - 15 01/29/2025 9:34 AM MATH COACH DTL BUN (Blood Urea Nitrogen), S 19 6 - 21 mg/dL 01/29/2025 9:34 AM MATH COACH DTL Creatinine 0.77 0.59 - 1.04 mg/dL 01/29/2025 9:34 AM MATH COACH DTL Estimated GFR (eGFR) >90 >=60 mL/min/BS A 01/29/2025 9:34 AM MATH COACH DTL Comment: Estimated GFR calculated using the 2020 CKD_EPI creatinine equation. Calcium, Total, S 9.2 8.6 - 10.0 mg/dL 01/29/2025 9:34 AM MATH COACH DTL Glucose, S 101 70 - 140 mg/dL 01/29/2025 9:34 AM MATH COACH DTL Protein, Total, S 6.4 6.3 - 7.9 g/dL 01/29/2025 9:34 AM MATH COACH DTL Albumin, S 4.2 3.5 - 5.0 g/dL 01/29/2025 9:34 AM MATH COACH DTL Aspartate Aminotransferase (AST), S 21 8 - 43 U/L 01/29/2025 9:34 AM MATH COACH DTL Alkaline Phosphatase, S 89 35 - 104 U/L 01/29/2025 9:34 AM MATH COACH DTL Alanine Aminotransferase (ALT), S 25 7 - 45 U/L 01/29/2025 9:34 AM MATH COACH DTL Bilirubin, Total, S <0.2 0.0 - 1.2 mg/dL 01/29/2025 9:34 AM MATH COACH DTL Blood (Blood, Venous) 01/29/2025 8:06 AM MATH COACH 01/29/2025 8:30 AM MATH COACH Bradley Booker M.D. LAB BLOOD ADD-ON Final Result [facility] [address] [place] [address], [facility] [address] [place] [address] * (ABNORMAL) CBC with Differential, Blood (01/29/2025 8:06 AM MATH COACH) Hemoglobin 11.5(L) 11.6 - 15.0 g/dL 01/29/2025 8:50 AM MATH COACH DTL Hematocrit 35.4(L) 35.5 - 44.9 % 01/29/2025 8:50 AM MATH COACH DTL Erythrocytes 4.01 3.92 - 5.13 x10(12)/L 01/29/2025 8:50 AM MATH COACH DTL MCV 88.3 78.2 - 97.9 fL 01/29/2025 8:50 AM MATH COACH DTL RBC Distrib Width 14.6 12.2 - 16.1 % 01/29/2025 8:50 AM MATH COACH DTL Platelet Count 385(H) 157 - 371 x10(9)/L 01/29/2025 8:50 AM MATH COACH DTL Leukocytes 4.3 3.4 - 9.6 x10(9)/L 01/29/2025 8:50 AM MATH COACH DTL Neutrophils 2.40 1.56 - 6.45 x10(9)/L 01/29/2025 8:50 AM MATH COACH DHPM Lymphocytes 1.23 0.95 - 3.07 x10(9)/L 01/29/2025 8:50 AM MATH COACH DTL Monocytes 0.31 0.26 - 0.81 x10(9)/L 01/29/2025 8:50 AM MATH COACH DTL Eosinophils 0.26 0.03 - 0.48 x10(9)/L 01/29/2025 8:50 AM MATH COACH DTL Basophils 0.07 0.01 - 0.08 x10(9)/L 01/29/2025 8:50 AM MATH COACH DTL Blood (Blood, Venous) 01/29/2025 8:06 AM MATH COACH 01/29/2025 8:35 AM MATH COACH Bradley Booker M.D. LAB BLOOD ADD-ON Final Result [facility] [address] [place] [address], [place] DTL [facility] [address] [place] [address] DHPM [facility] [address] [place] [address] documented in this encounter Visit Diagnoses Diagnosis 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)- Primary documented in this encounter Administered Medications Inactive Administered Medications - up to 3 most recent administrations Medication Order MAR Action Action Date Dose Rate Site heparin flush 500 Units 500 Units, intra-catheter, As needed, line care, Starting on Sat01/29/25 at 0745, When IVAD accessed and not infusing: When [...] 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 (HCC) Given 01/29/2025 8:06 AM MATH COACH 500 Units sodium chloride 0.9 % injection 20-40 mL 20-40 mL, intra-catheter, As needed, line care, Starting on Sat01/29/25 at 0745, When IVAD accessed and infusing: Flush prior to blood sampling, post blood transfusion or post blood sampling. 20 mL to each port/lumen.Indications:Malignan t Neoplasm Of Breast 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 (HCC) Given 01/29/2025 8:06 AM MATH COACH 40 mL Given 01/29/2025 8:00 AM MATH COACH 40 mL documented in this encounter Additional Health Concerns Infection Onset Date Last Indicated Resolved Time Protective Environment 12/11/2024 12/11/2024 documented as of this encounter
--- OUTSIDE RECORDS SUMMARY | 2025-01-29 09:30 | XMS_ITS | Encounter Summary ---
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 [address] [place] [phone] Phone: tel: fax: Department of Oncology in [place], [place] [address] [place] [phone] Phone: tel: Referral ID Status Reason Start Date Expiration Date V isits Requested Visits Authorized [id number] Authorized 11/26/2024 05/26/2025 12 99 Encounter Details Date Type Department Care Team (Late st Contact Info) Description 01/29/2025 9:30 AM GUEST SERVICES OFFICER Office Visit Department of Oncology in [place], [place] [address] [place] [address] Bradley Booker M.D. [address] [place] [address] 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 [...] things needed for daily living? No 11/17/2024 [facility] Utilities Answer Date Recorded In the past 12 months has e electric, gas, oil, or water company threatened to shut off services in your home? No 11/17/2024 Housing Stability Answer Date Recorded What is your living situation today? I have a [facility] place to live 11/17/2024 Comments No Sex and Gender Information Value Date Recorded Sex Assigned at Female 11/17/2024 12:38 PM CDT Legal Sex Female 12:31 PM CDT Gender Identity Female 11/17/2024 12:38 PM CDT Sexual Orientation Straight 11/17/2024 12 :38 PM CDT documented as of this encounter Last Filed Vital Signs Vital Sign Reading Time Taken Comments Blood Pressure - - Pulse - - Temperature - - Respiratory Rate - - Oxygen Saturation - - Inhaled Oxygen Concentration - - Weight - - Height 164.3 cm (5' 4.69) 01/29/2025 9:23 AM CS T Body Mass Index - - documented in this encounter Progress Notes * Bradley Booker M.D. - 01/29/2025 9:30 AM CST PRIMARY CARE PHYSICIAN No primary care provider on file. LOCAL ONCOLOGIST No care sports team manager to display PRIMARY MINGUS ONCOLOGIST Katrina Yarbrough M.D. Bradley Booker M.D. CHIEF COMPLAINT / REASON FOR VISIT [...] of lactating adenoma, negative for malignancy Per [facility]: Breast, left, 11 o'clock, 6 cm from nipple, ultrasound-guided needle core biopsy ([id number]; 04/28/2024): Breast parenchyma with lactational/secretory changes. Small [...] 2 mm from closest superior margin Per [facility] 10/26/2024 Clinical Stage Staging form: Breast, AJCC 8th Edition - Clinical stage from 10/26/2024: Stage IIIC (cT4d, cN1, cM0, G3, ER-, AZ-, HER2-) Stage prefix: Initial diagnosis Histologic grading system: 3 grade system 11/02/2024 Genetic Testing and Tumor Genotyping Genetic testing: Done, results negative. 11/05/2024 Biopsy/Pathology Biopsy: Lymph node biopsy, Left axilla; Clip: Unknown Metastatic Carcinoma consistent with breast primary Hormone receptor testing: Not done. Per [facility] 12/11/2024 - Chemotherapy PACLitaxel / CARBOplatin AUC 1.5 / Pembrolizumab Start Date: 12/11/2024 03/11/2025 - Chemotherapy DOXOrubicin / cycloPHOSphamide / Pembrolizumab Start Date: 03/11/2025 (Planned) ONC General HPI REVIEW OF SYSTEMS REVIEW OF SYSTEMS OBJECTIVE There were no vitals filed for this visit. PHYSICAL EXAM Physical Exam General: The patient [...] Stage IIIB (cT2, cN1, cM0, G3, ER-, AZ-, HER2-) Current Therapy: Current Disease Status: Not [...] initiated on 12/10. Plan - Proceed with C3 of Weekly Carbo/Taxol + Pembro - Will follow her and consult Dr Yarbrough as needed - Toi and Jazlyn appreciative and agreeable. She will find a local provider in the coming month and potentially transition care locally. - Patient knows how to reach me. Changed her C4 date from 02/18 to 02/19. Also changed her Doxo/Cyclopho/Pembro start date from 03/11 to 03/19 per patient preference. PATIENT EDUCATION Ready to learn, no apparent learning barriers were identified; learning preferences include listening. Explained diagnosis and treatment plan; patient expressed understanding of the content. ADMINISTRATIVE BILLING I spent 30 minutes face to face and non-face to face caring for the patient today. T SERVICES OFFICER documented in this encounter Plan of Treatment Upcoming Encounters Date Type Department Care Team (Latest Contact Info) Description 02/12/2025 8:45 AM GUEST SERVICES OFFICER Lab Department of Oncology in [place], [place] [address] [place] [phone] Bradley Booker M.D. [address] [place] [phone] 02/12/2025 11:30 AM GUEST SERVICES OFFICER Infusion Department of Oncology in [place], [place] [address] [place] [phone] Bradley Booker M.D. [address] [place] [phone] 02/17/2025 9:15 AM GUEST SERVICES OFFICER Clinical Communication Virtual Review in [place], [place] 200 [place] [phone] 02/18/2025 8:00 AM GUEST SERVICES OFFICER Lab Department of Oncology in [place], [place] [address] [place] [phone] Bradley Booker M.D. [address] [place] [phone] 02/18/2025 10:00 AM GUEST SERVICES OFFICER Office Visit Division of Hematology in [place], [place] [address] [place] [phone] Latrice Gomez M.D. [address] [place] [phone] 02/18/2025 10:30 AM GUEST SERVICES OFFICER Infusion Department of Oncology in [place], [place] [address] [place] [phone] Bradley Booker M.D. [address] [place] [phone] 02/26/2025 7:00 AM GUEST SERVICES OFFICER Lab Department of Oncology in [place], [place] [address] [place] [phone] Bradley Booker M.D. [address] [place] [phone] 02/26/2025 9:00 AM GUEST SERVICES OFFICER Infusion Department of Oncology in [place], [place] [address] [place] [address] Bradley Booker M.D. [address] [place] [phone] 03/05/2025 7:00 AM GUEST SERVICES OFFICER Lab Department of Oncology in [place], [place] [address] [place] [phone] Bradley Booker M.D. [address] [place] [phone] 03/05/2025 9:00 AM GUEST SERVICES OFFICER Infusion Department of Oncology in [place], [place] [address] [place] [phone] Bradley Booker M.D. [address] [place] [phone] 03/19/2025 10:30 AM GUEST SERVICES OFFICER Lab Department of Laboratory Medicine and Pathology, [facility], in [place], [place] [address] [place] [phone] Bradley Booker M.D. [address] [place] [phone] 03/19/2025 2:00 PM GUEST SERVICES OFFICER Infusion Department of Oncology in [place], [place] [address] [place] [phone] Bradley Booker M.D. [address] [place] [phone] 03/23/2025 10:00 AM GUEST SERVICES OFFICER Telemedicine Division of Breast and Melanoma Surgical Oncology in [place], [place] [address] [place] [phone] Kell Craven APRN, C.N.P., D.N.P. [address] [place] [phone] 03/25/2025 3:20 PM GUEST SERVICES OFFICER Comprehensive Visit Department of Oncology in [address] [phone] Kilo Patel, DWAYNE, C.N.P., D.N.P. [address] [place] [phone] 04/08/2025 9:30 AM GUEST SERVICES OFFICER Clinical Communication Virtual Review in [place], [place] 200 [place] [phone] 04/09/2025 8:00 AM GUEST SERVICES OFFICER Lab Department of Oncology in [address] [phone] Bradley Booker M.D. [address] [place] [phone] 04/09/2025 10:00 AM GUEST SERVICES OFFICER Office Visit Department of Oncology in [address] [phone] Bradley Booker M.D. [address] [place] [phone] 04/09/2025 11:00 AM GUEST SERVICES OFFICER Infusion Department of Oncology in [address] [phone] Bradley Booker M.D. [address] [place] [phone] Scheduled Orders Name Type Priority Associated Diagnoses Orde r Schedule Comprehensive Metabolic Panel Lab Routine 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) Expected: 03/20/2025, Expires: 03/20/2026 CBC with Differential, Blood Lab Routine 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) Expected: 03/20/2025, Expires: 03/20/2028 Thyroid Function [place] Lab Routine 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) Expected: 03/20/2025, Expires: 03/20/2026 hCG (Human Chorionic Gonadotropin), Quantitative, Lab Routine 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) Expected: 03/20/2025, Expires: 03/20/2026 Comprehensive Metabolic Panel Lab Routine 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) Expected: 04/10/2025, Expires: 04/10/2026 CBC with Differential, Blood Lab Routine 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) Expected: 04/10/2025, Expires: 04/10/2028 Thyroid Function [place] Lab Routine 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) Expected: 04/10/2025, Expires: 04/10/2026 Scheduled Referrals Name Type Priority Associated Diagnoses Orde r Schedule Oncology office visit (clinic) Outpatient Referral Routine 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
--- OUTSIDE RECORDS SUMMARY | 2025-01-29 10:00 | XMS_ITS | Encounter Summary ---
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 [address] [place] [phone] Phone: tel: fax: Department of Oncology in [place], [place] [address] [place] [phone] Phone: tel: Referral ID Status Reason Start Date Expiration Date V isits Requested Visits Authorized [id number] Authorized 11/26/2024 05/26/2025 12 99 Encounter Details Date Type Department Care Team (Late st Contact Info) Description 01/29/2025 10:00 AM LAMINATOR Infusion Department of Oncology in [place], [place] [address] [place] [phone] Bradley Booker M.D. [address] [place] [phone] 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 [...] for daily living? No 11/17/2024 [facility] Utilities Answer Date Recorded In the past 12 months has e electric, gas, oil, or water company threatened to shut off services in your home? No 11/17/2024 Housing Stability Answer Date Recorded What is your living situation today? I have a [facility] place to live 11/17/2024 Comments No Sex and Gender Information Value Date Recorded Sex Assigned at Female 11/17/2024 12:38 PM CDT Legal Sex Female 12:31 PM CDT Gender Identity Female 11/17/2024 12:38 PM CDT Sexual Orientation Straight 11/17/2024 12 :38 PM CDT documented as of this encounter Last Filed Vital Signs Vital Sign Reading Time Taken Comments Blood Pressure 134/71 01/29/2025 10:51 AM LAMINATOR Pulse 81 01/29/2025 10:51 AM LAMINATOR Temperature 36.5 C (97.7 F) 01/29/2025 10:51 AM LAMINATOR Respiratory Rate - - Oxygen Saturation - - Inhaled Oxygen Concentration - - Weight 99.7 kg (219 lb 14.2 oz) 025 10:51 AM LAMINATOR Height - - Body Mass Index 36.95 01/29/2025 9:23 AM LAMINATOR documented in this encounter Plan of Treatment Upcoming Encounters Date Type Department Care Team (Latest Contact Info) Description 02/12/2025 8:45 AM LAMINATOR Lab Department of Oncology in [place], [place] 200 [place] [address] Bradley Booker M.D. 200 [place] [phone] 02/12/2025 11:30 AM LAMINATOR Infusion Department of Oncology in [place], [place] [address] [place] [phone] Bradley Booker M.D. [address] [place] [phone] 02/17/2025 9:15 AM LAMINATOR Clinical Communication Virtual Review in [place], [place] 200 [place] [phone] 02/18/2025 8:00 AM LAMINATOR Lab Department of Oncology in [place], [place] [address] [place] [phone] Bradley Booker M.D. [address] [place] [phone] 02/18/2025 10:00 AM LAMINATOR Office Visit Division of Hematology in [place], [place] [address] [place] [phone] Latrice Gomez M.D. [address] [place] [phone] 02/18/2025 10:30 AM LAMINATOR Infusion Department of Oncology in [address] [phone] Bradley Booker M.D. [address] [place] [phone] 02/26/2025 7:00 AM LAMINATOR Lab Department of Oncology in [address] [phone] Bradley Booker M.D. [address] [place] [phone] 02/26/2025 9:00 AM LAMINATOR Infusion Department of Oncology in [address] [phone] Bradley Booker M.D. [address] [place] [phone] 03/05/2025 7:00 AM LAMINATOR Lab Department of Oncology in [place], [place] [address] [place] [phone] Bradley Booker M.D. [address] [place] [phone] 03/05/2025 9:00 AM LAMINATOR Infusion Department of Oncology in [place], [place] [address] [place] [phone] Bradley Booker M.D. [address] [place] [phone] 03/19/2025 10:30 AM LAMINATOR Lab Department of Laboratory Medicine and Pathology, [facility] in [place], [place] [address] [place] [address] Bradley Booker M.D. [address] [place] [phone] 03/19/2025 2:00 PM LAMINATOR Infusion Department of Oncology in [place], [place] [address] [place] [phone] Bradley Booker M.D. [address] [place] [phone] 03/23/2025 10:00 AM LAMINATOR Telemedicine Division of Breast and Melanoma Surgical Oncology in [place], [place] [address] [place] [phone] Kell Craven APRN, C.N.P., D.N.P. [address] [place] [phone] 03/25/2025 3:20 PM LAMINATOR Comprehensive Visit Department of Oncology in [address] [phone] Kilo Patel, DWAYNE, C.N.P., D.N.P. [address] [place] [phone] 04/08/2025 9:30 AM LAMINATOR Clinical Communication Virtual Review in [address] [phone] 04/09/2025 8:00 AM LAMINATOR Lab Department of Oncology in [address] [phone] Bradley Booker M.D. [address] [place] [phone] 04/09/2025 10:00 AM LAMINATOR Office Visit Department of Oncology in [address] [phone] Bradley Booker M.D. [address] [place] [phone] 04/09/2025 11:00 AM LAMINATOR Infusion Department of Oncology in [address] [phone] Bradley Booker M.D. 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) Given 01/29/2025 11:20 AM LAMINATOR 10 mg diphenhydrAMINE injection 25 mg (BenadryL) 25 mg, intravenous, Once, On Sat01/29/25 at 1115, For 1 dose, Give prior to PACLitaxel.Indications:Hanna gnant Neoplasm Of Breast 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 (HCC) Given 01/29/2025 11:20 AM LAMINATOR 25 mg famotidine injection 20 mg (Pepcid) 20 mg, intravenous, Once, On Sat01/29/25 at 1115, For 1 dose, Give prior to PACLitaxelIndications:Malig nant Neoplasm Of Breast 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 (HCC) Given 01/29/2025 11:20 AM LAMINATOR 20 mg heparin flush 500 Units 500 Units, intra-catheter, As needed, line care, Starting on Sat01/29/25 at 1051, When IVAD accessed and not infusing: When [...] 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 (HCC) Given 01/29/2025 1:53 PM LAMINATOR 500 Units PACLitaxeL 174 mg in NaCl 0.9% (non-PVC/non-DEHP) 304 mL IVPB (TaxoL) 174 mg (rounded from 173.6 mg = 80 mg/m2 2.17 m2 Treatment Plan BSA from Measured weight), intravenous, at 304 mL/hr, Administer over 1 Hours, Once, On Sat01/29/25 at 1215, For 1 dose, Administer via 0.2 or 0.22 micron filter.Indications:Malignan t Neoplasm Of Breast 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 (HCC) New Bag 01/29/2025 12:16 PM LAMINATOR 174 mg 304 mL/hr palonosetron injection 0.25 mg (Aloxi) 0.25 mg, intravenous, Once, On Sat01/29/25 at 1115, For 1 doseIndications: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 Do not shake. Use low protein binding filter (pore size of 0.2-5 micron).Indications:Maligna nt Neoplasm Of Breast 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 (HCC) New Bag 01/29/2025 11:37 AM LAMINATOR 200 mg 236 mL/hr sodium chloride 0.9 % injection 10-20 mL 10-20 mL, intra-catheter, As needed, line care, Starting on Sat01/29/25 at 1051, When IVAD accessed and infusing: Flush prior to and following infusion, between multiple consecutive infusions. 10 mL to each port/lumen.Indications:Hanna gnant Neoplasm Of Breast 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 (HCC) Given 01/29/2025 1:53 PM LAMINATOR 10 mL Given 01/29/2025 12:06 PM LAMINATOR 20 mL documented in this encounter Additional Health Concerns Infection Onset Date Last Indicated Resolved Time Protective Environment 12/11/2024 12/11/2024 documented as of this encounter
--- OUTSIDE RECORDS SUMMARY | 2025-02-05 08:30 | XMS_ITS | Encounter Summary ---
Author Organization 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 [address] [place] [phone] Phone: tel: fax: Department of Oncology in [place], [place] [address] [place] [phone] Phone: tel: Referral ID Status Reason Start Date Expiration Date V isits Requested Visits Authorized [id number] Authorized 11/26/2024 05/26/2025 12 99 Encounter Details Date Type Department Care Team (Late st Contact Info) Description 02/05/2025 8:30 AM NEWS COMMENTATOR Lab Department of Oncology in [place], [place] [address] [place] [phone] Bradley Booker M.D. [address] [place] [phone] 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 [...] things needed for daily living? No 11/17/2024 [facility] Utilities Answer Date Recorded In the past 12 months has e electric, gas, oil, or water company threatened to shut off services in your home? No 11/17/2024 Housing Stability Answer Date Recorded What is your living situation today? I have a [facility] place to live 11/17/2024 Comments No [...] (Latest Contact Info) Description 02/12/2025 8:45 AM NEWS COMMENTATOR Lab Department of Oncology in [address] [phone] Bradley Booker M.D. [address] [place] [phone] 02/12/2025 11:30 AM NEWS COMMENTATOR Infusion Department of Oncology in [address] [phone] Bradley Booker M.D. [address] [place] [phone] 02/17/2025 9:15 AM NEWS COMMENTATOR Clinical Communication Virtual Review in [place], [place] 200 [place] [phone] 02/18/2025 8:00 AM NEWS COMMENTATOR Lab Department of Oncology in [place], [place] [address] [place] [phone] Bradley Booker M.D. [address] [place] [phone] 02/18/2025 10:00 AM NEWS COMMENTATOR Office Visit Division of Hematology in [place], [place] [address] [place] [phone] Latrice Gomez M.D. [address] [place] [phone] 02/18/2025 10:30 AM NEWS COMMENTATOR Infusion Department of Oncology in [place], [place] [address] [place] [phone] Bradley Booker M.D. [address] [place] [phone] 02/26/2025 7:00 AM NEWS COMMENTATOR Lab Department of Oncology in [place], [place] [address] [place] [phone] Bradley Booker M.D. [address] [place] [phone] 02/26/2025 9:00 AM NEWS COMMENTATOR Infusion Department of Oncology in [address] [phone] Bradley Booker M.D. [address] [place] [phone] 03/05/2025 7:00 AM NEWS COMMENTATOR Lab Department of Oncology in [address] [phone] Bradley Booker M.D. [address] [place] [phone] 03/05/2025 9:00 AM NEWS COMMENTATOR Infusion Department of Oncology in [place], [place] [address] [place] [phone] Bradley Booker M.D. [address] [place] [phone] 03/19/2025 10:30 AM NEWS COMMENTATOR Lab Department of Laboratory Medicine and Pathology, [facility] in [place], [place] [address] [place] [phone] Bradley Booker M.D. [address] [place] [phone] 03/19/2025 2:00 PM NEWS COMMENTATOR Infusion Department of Oncology in [address] [phone] Bradley Booker M.D. [address] [place] [phone] 03/23/2025 10:00 AM NEWS COMMENTATOR Telemedicine Division of Breast and Melanoma Surgical Oncology in [address] [phone] Kell Craven APRN, C.N.P., D.N.P. [address] [place] [phone] 03/25/2025 3:20 PM NEWS COMMENTATOR Comprehensive Visit Department of Oncology in [address] [phone] Kilo Patel APRN, C.N.P., D.N.P. [address] [place] [phone] 04/08/2025 9:30 AM NEWS COMMENTATOR Clinical Communication Virtual Review in [address] [phone] 04/09/2025 8:00 AM NEWS COMMENTATOR Lab Department of Oncology in [place], [place] [address] [place] [phone] Bradley Booker M.D. [address] [place] [phone] 04/09/2025 10:00 AM NEWS COMMENTATOR Office Visit Department of Oncology in [place], [place] [address] [place] [phone] Bradley Booker M.D. [address] [place] [phone] 04/09/2025 11:00 AM NEWS COMMENTATOR Infusion Department of Oncology in [place], [place] [address] [place] [phone] Bradley Booker M.D. [address] [place] [phone] documented as of this encounter Procedures Procedure Name Priority Date/Time Associated Diagnosis Comments CBC CHEMO - NO ALERTS Routine 02/05/2025 8:52 AM NEWS COMMENTATOR 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) CREATININE WITH EGFR, S/P Routine 02/05/2025 8:52 AM NEWS COMMENTATOR 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) documented in this encounter Results * Creatinine with Estimated GFR (02/05/2025 8:52 AM NEWS COMMENTATOR) Creatinine 0.67 0.59 - 1.04 mg/dL 02/05/2025 9:49 AM NEWS COMMENTATOR DTL Estimated GFR (eGFR) >90 >=60 mL/min/BSA 02/05/2025 9:49 AM NEWS COMMENTATOR DTL Comment: Estimated GFR calculated using the 2020 CKD_EPI creatinine equation. Blood (Blood, Venous) 02/05/2025 8:52 AM NEWS COMMENTATOR 02/05/2025 9:01 AM NEWS COMMENTATOR Bradley Booker M.D. LAB BLOOD ADD-ON Final Result [facility] 200 [place] [address], [facility] DTL [facility] 200 [place] [address] * (ABNORMAL) CBC, Chemotherapy, No Alerts (02/05/2025 8:52 AM NEWS COMMENTATOR) [facility] Hemoglobin 11.5(L) 11.6 - 15.0 g/dL 02/05/2025 9:02 AM NEWS COMMENTATOR METH Platelet Count 166 157 - 371 x10(9)/L 02/05/2025 9:02 AM NEWS COMMENTATOR METH Leukocytes 5.0 3.4 - 9.6 x10(9)/L 02/05/2025 9:02 AM NEWS COMMENTATOR METH Neutrophils 2.68 1.56 - 6.45 x10(9)/L 02/05/2025 9:02 AM NEWS COMMENTATOR [facility] Blood (Blood, Venous) 02/05/2025 8:52 AM NEWS COMMENTATOR 02/05/2025 8:58 AM NEWS COMMENTATOR Bradley Booker M.D. LAB BLOOD ADD-ON Final Result Performing Organization Address [facility] Co de Phone Number [facility] 200 [place] [address], [facility] METH [facility] 200 [place] [address] DHPM [facility] 200 [place] [address] documented in this encounter Visit Diagnoses Diagnosis 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)- Primary documented in this encounter Administered Medications Inactive Administered Medications - up to 3 most recent administrations Medication Order MAR Action Action Date Dose Rate Site heparin flush 500 Units 500 Units, intra-catheter, As needed, line care, Starting on Sat02/05/25 at 0831, When IVAD accessed and not infusing: When [...] 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 (HCC) Given 02/05/2025 8:32 AM NEWS COMMENTATOR 500 Units sodium chloride 0.9 % injection 20-40 mL 20-40 mL, intra-catheter, As needed, line care, Starting on Sat02/05/25 at 0831, When IVAD accessed and infusing: Flush prior to blood sampling, post blood transfusion or post blood sampling. 20 mL to each port/lumen.Indications:Malignan t Neoplasm Of Breast 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 (HCC) Given 02/05/2025 8:32 AM NEWS COMMENTATOR 20 mL documented in this encounter Additional Health Concerns Infection Onset Date Last Indicated Resolved Time Protective Environment 12/11/2024 12/11/2024 documented as of this encounter
--- OUTSIDE RECORDS SUMMARY | 2025-02-05 10:30 | XMS_ITS | Encounter Summary ---
Author Organization [facility] Address [address] [place] [phone] Care Team Providers Care Manager Mail Name Role Phone Unavailable Primary Care Provider Unavailabl e Reason for Visit * Episode Based Medications (Routine) - Authorized Specialty Diagnoses / Procedures Referred By Wilian ambrose Referred To Contact Diagnoses 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) Procedures [place] PALONOSETRON HCL [place] PEMBROLIZUMAB INJ [place] CARBOPLATIN INJECTION [place] PACLITAXEL INJECTION Bradley Booker M.D. [address] [place] [phone] Phone: tel: fax: Department of Oncology in [place], [place] [address] [place] [phone] Phone: tel: Referral ID Status Reason Start Date Expiration Date V isits Requested Visits Authorized [id number] Authorized 11/26/2024 05/26/2025 12 99 Encounter Details Date Type Department Care Team (Late st Contact Info) Description 02/05/2025 10:30 AM DOLL EYE SETTER Infusion Department of Oncology in [place], [place] [address] [place] [phone] Bradley Booker M.D. [address] [place] [phone] 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 [...] things needed for daily living? No 11/17/2024 [facility] Utilities Answer Date Recorded In the past 12 months has e electric, gas, oil, or water company threatened to shut off services in your home? No 11/17/2024 Housing Stability Answer Date Recorded What is your living situation today? I have a [facility] place to live 11/17/2024 Comments No Sex and Gender Information Value Date Recorded Sex Assigned at Female 11/17/2024 12:38 PM CDT Legal Sex Female 12:31 PM CDT Gender Identity Female 11/17/2024 12:38 PM CDT Sexual Orientation Straight 11/17/2024 12 :38 PM CDT documented as of this encounter Last Filed Vital Signs Vital Sign Reading Time Taken Comments Blood Pressure 121/63 02/05/2025 10:29 AM DOLL EYE SETTER Pulse 77 02/05/2025 10:29 AM DOLL EYE SETTER Temperature 36.4 C (97.5 F) 02/05/2025 10:29 AM DOLL EYE SETTER Respiratory Rate - - Oxygen Saturation - - Inhaled Oxygen Concentration - - Weight 98.9 kg (218 lb 2.3 oz) 02/05/2025 10:29 AM DOLL EYE SETTER Height - - Body Mass Index 36.66 01/29/2025 9:23 AM DOLL EYE SETTER documented in this encounter Plan of Treatment Upcoming Encounters Date Type Department Care Team (Latest Contact Info) Description 02/12/2025 8:45 AM DOLL EYE SETTER Lab Department of Oncology in [place], [place] 200 [place] [phone] Bradley Booker M.D. 200 [place] [phone] 02/12/2025 11:30 AM DOLL EYE SETTER Infusion Department of Oncology in [place], [place] [address] [place] [phone] Bradley Booker M.D. [address] [place] [phone] 02/17/2025 9:15 AM DOLL EYE SETTER Clinical Communication Virtual Review in [place], [place] 200 [place] [phone] 02/18/2025 8:00 AM DOLL EYE SETTER Lab Department of Oncology in [place], [place] [address] [place] [phone] Bradley Booker M.D. [address] [place] [phone] 02/18/2025 10:00 AM DOLL EYE SETTER Office Visit Division of Hematology in [place], [place] [address] [place] [phone] Latrice Gomez M.D. [address] [place] [phone] 02/18/2025 10:30 AM DOLL EYE SETTER Infusion Department of Oncology in [address] [phone] Bradley Booker M.D. [address] [place] [phone] 02/26/2025 7:00 AM DOLL EYE SETTER Lab Department of Oncology in [address] [phone] Bradley Booker M.D. [address] [place] [phone] 02/26/2025 9:00 AM DOLL EYE SETTER Infusion Department of Oncology in [address] [phone] Bradley Booker M.D. [address] [place] [phone] 03/05/2025 7:00 AM DOLL EYE SETTER Lab Department of Oncology in [place], [place] [address] [place] [phone] Bradley Booker M.D. [address] [place] [phone] 03/05/2025 9:00 AM DOLL EYE SETTER Infusion Department of Oncology in [place], [place] [address] [place] [phone] Bradley Booker M.D. [address] [place] [phone] 03/19/2025 10:30 AM DOLL EYE SETTER Lab Department of Laboratory Medicine and Pathology, [facility] in [place], [place] [address] [place] [address] Bradley Booker M.D. [address] [place] [phone] 03/19/2025 2:00 PM DOLL EYE SETTER Infusion Department of Oncology in [place], [place] [address] [place] [phone] Bradley Booker M.D. [address] [place] [phone] 03/23/2025 10:00 AM DOLL EYE SETTER Telemedicine Division of Breast and Melanoma Surgical Oncology in [place], [place] [address] [place] [phone] Kell Craven APRN, C.N.P., D.N.P. [address] [place] [phone] 03/25/2025 3:20 PM DOLL EYE SETTER Comprehensive Visit Department of Oncology in [address] [phone] Kilo Patel, DWAYNE, C.N.P., D.N.P. [address] [place] [phone] 04/08/2025 9:30 AM DOLL EYE SETTER Clinical Communication Virtual Review in [address] [phone] 04/09/2025 8:00 AM DOLL EYE SETTER Lab Department of Oncology in [address] [phone] Bradley Booker M.D. [address] [place] [phone] 04/09/2025 10:00 AM DOLL EYE SETTER Office Visit Department of Oncology in [address] [phone] Bradley Booker M.D. [address] [place] [phone] 04/09/2025 11:00 AM DOLL EYE SETTER Infusion Department of Oncology in [address] [phone] Bradley Booker M.D. 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) Given 02/05/2025 11:06 AM DOLL EYE SETTER 10 mg diphenhydrAMINE injection 12.5 mg (BenadryL) 12.5 mg, intravenous, Once, On Sat02/05/25 at 1100, For 1 dose, Give prior to PACLitaxel.Indications:Hanna gnant Neoplasm Of Breast 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 (HCC) Given 02/05/2025 11:06 AM DOLL EYE SETTER 12.5 mg famotidine injection 20 mg (Pepcid) 20 mg, intravenous, Once, On Sat02/05/25 at 1100, For 1 dose, Give prior to PACLitaxelIndications:Malig nant Neoplasm Of Breast 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 (HCC) Given 02/05/2025 11:06 AM DOLL EYE SETTER 20 mg heparin flush 500 Units 500 Units, intra-catheter, As needed, line care, Starting on Sat02/05/25 at 1028, When IVAD accessed and not infusing: When [...] 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 (HCC) Given 02/05/2025 1:20 PM DOLL EYE SETTER 500 Units PACLitaxeL 174 mg in NaCl 0.9% (non-PVC/non-DEHP) 304 mL IVPB (TaxoL) 174 mg (rounded from 173.6 mg = 80 mg/m2 2.17 m2 Treatment Plan BSA from Measured weight), intravenous, at 304 mL/hr, Administer over 1 Hours, Once, On Sat02/05/25 at 1130, For 1 dose, Administer via 0.2 or 0.22 micron filter (Use non-PVC container and set). Administer via 0.2 or 0.22 micron filter.Indications:Malignan t Neoplasm Of Breast 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 (HCC) New Bag 02/05/2025 11:42 AM DOLL EYE SETTER 174 mg 304 mL/hr palonosetron injection 0.25 mg (Aloxi) 0.25 mg, intravenous, Once, On Sat02/05/25 at 1100, For 1 doseIndications: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) Given 02/05/2025 11:06 AM DOLL EYE SETTER 0.25 mg sodium chloride 0.9 % injection 10-20 mL 10-20 mL, intra-catheter, As needed, line care, Starting on Sat02/05/25 at 1028, When IVAD accessed and infusing: Flush prior to and following infusion, between multiple consecutive infusions. 10 mL to each port/lumen.Indications:Hanna gnant Neoplasm Of Breast 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 (HCC) Given 02/05/2025 1:19 PM DOLL EYE SETTER 10 mL documented in this encounter Additional Health Concerns Infection Onset Date Last Indicated Resolved Time Protective Environment 12/11/2024 12/11/2024 documented as of this encounter
[2025-02-05 22:53] VITALS: BP 117/77; PULSE 100; RESP 16; TEMP 36.6; O2SAT 96; BMI 37.8
--- NOTE | 2025-02-05 22:53 | ED.GENADULT ---
HPI - General Adult General Time Seen by Provider: 22:53 <Russ Mccall MD - Last Filed: 02/14/25 23:37> Date Seen: 02/05/25 <Russ Mccall MD - Last Filed: 02/14/25 23:37> Chief complaint: Fever <Russ Mccall MD - Last Filed: 02/14/25 23:37> Stated complaint: fever <Russ Mccall MD - Last Filed: 02/14/25 23:37> Time Seen by Provider: 02/05/25 22:53 <Russ Mccall MD - Last Filed: 02/14/25 23:37> Source: patient <Russ Mccall MD - Last Filed: 02/14/25 23:37> Mode of arrival: ambulatory <Russ Mccall MD - Last Filed: 02/14/25 23:37> Limitations: no limitations <Russ Mccall MD - Last Filed: 02/14/25 23:37> History of Present Illness HPI narrative: 39-year-old female who presents today with fever. Patient received chemotherapy today, noted this evening she had a temperature up to 100.8?. Took Tylenol prior to coming emergency department. Has some ongoing nasal congestion which is not new. Denies headache, chest pain, shortness of breath, abdominal pain, urinary symptoms, diarrhea. Reports that a couple of times in the past after infusion she has developed a fever. Recently treated for pneumonia with doxycycline. <Russ Mccall MD - Last Filed: 02/14/25 23:37> Related Data Allergies/adverse reactions: Allergies Allergy/AdvReac Type Severity Reaction Status Date / Time No Known Drug Allergies Allergy Verified 02/05/25 22:59 <Russ Mccall MD - Last Filed: 02/14/25 23:37> PFS PFS Social History: Social History Smoking Status: Never smoker Do you use any of these nicotine containing products: None How often do you have a drink containing alcohol: 2-4 times a month AUDIT-C Alcohol total score: 2 Non-prescribed substance use: denies use <Russ Mccall MD - Last Filed: 02/14/25 23:37> Exam Narrative: Exam Narrative: General: Well-developed and well-nourished, no acute distress Head: Atraumatic and normocephalic Eyes: Pupils are equal reactive, extraocular motions intact, conjunctiva clear ENT: External nose and ears are normal, posterior pharynx without erythema or exudate Neck: No midline cervical tenderness, full spontaneous range of motion the neck, trachea midline, no adenopathy Heart: Regular rate and rhythm no murmurs or thrills Lungs: Clear to auscultation bilaterally without wheezes or crackles Abdomen: Soft, nontender, nondistended with active bowel sounds Musculoskeletal: No tenderness, deformity, or edema Neurologic: Awake, alert, and oriented x3, no gross focal neurologic deficits, cranial nerves intact as tested Psych: Mood and affect are appropriate Skin: No rashes <Russ Mccall MD - Last Filed: 02/14/25 23:37> Const: Vital Signs, click to edit/add: Vital Signs - 24 hr 02/05/25 22:53 02/05/25 23:42 02/06/25 02:14 Temperature 97.8 F 97.8 F Pulse Rate [Left P ulse Oximeter] 100 90 Pulse Rate [Right Pulse Oximeter] 100 Respiratory Rate 16 16 18 Blood Pressure [Ri ght Arm] 117/77 Blood Pressure [Ri ght Upper Arm] 117/77 109/70 Pulse Oximetry 96 96 100 Oxygen Delivery Me thod Room Air Room Air Room Air <Russ Mccall MD - Last Filed: 02/14/25 23:37> Vital Signs, click to edit/add: Vital Signs - 24 hr 02/05/25 22:53 02/05/25 23:42 02/06/25 02:14 Temperature 97.8 F 97.8 F Pulse Rate [Left P ulse Oximeter] 100 90 Pulse Rate [Right Pulse Oximeter] 100 Respiratory Rate 16 16 18 Blood Pressure [Ri ght Arm] 117/77 Blood Pressure [Ri ght Upper Arm] 117/77 109/70 Pulse Oximetry 96 96 100 Oxygen Delivery Me thod Room Air Room Air Room Air <Maury Ugalde MD - Last Filed: 02/07/25 08:33> Course Course ED Course: Additional records reviewed: Reviewed most recent emergency department visit from December 28 at inpatient seen in outside facility, at that time white blood cell count 11.7, chest x-ray atelectasis versus pneumonia treated with doxycycline. Also reviewed most recent recent oncology note from [facility], patient is being treated for breast cancer. Additional history from: None Care impacted by: Chemotherapy, breast cancer Testing considered but not performed: See ED course Disposition: Considered admission, sign out to oncoming provider Patient seen examined, presents today with fever after chemotherapy today. Otherwise she feels about baseline with some chronic nasal congestion. On exam, afebrile although she took Tylenol at home, tachycardic who lives are clear, no abdominal tenderness, no focal findings to explain cause of fever. This may be a chemotherapy reaction but labs, chest x-ray, urinalysis ordered to evaluate for possible other cause of fever. IV fluids are ordered, will observe in the emergency department, anticipate discharge. <Russ Mccall MD - Last Filed: 02/14/25 23:37> Reevaluation(s) Time of Reevaluation #1: 00:42 <Maury Ugalde MD - Last Filed: 02/07/25 08:33> Reevaluation #1: Reviewed the chart, got sign of from the outgoing provider. Patient doing better she tells me, she thinks this likely is a chemotherapeutic reaction. Receiving fluids currently, has not yet urinated. Reviewed labs with her. Comprehensive metabolic panel basically normal with a slightly elevated glucose. Triple screen nasal swab negative. Chest x-ray reviewed by myself appears no acute findings. Blood cultures pending. I think it be reasonable, for urine is negative, and this fat find no significant findings that we let her go home and she can watch this. No evidence of leukopenia. She is very comfortable with this plan. <Maury Ugalde MD - Last Filed: 02/07/25 08:33> Time of Reevaluation #2: 02:35 <Maury Ugalde MD - Last Filed: 02/07/25 08:33> Reevaluation #2: Patient feels good requesting to go home, awaiting UA results, these are negative then I think she can go home and be watched at home. <Maury Ugalde MD - Last Filed: 02/07/25 08:33> Time of Reevaluation #3: 08:32 <Maury Ugalde MD - Last Filed: 02/07/25 08:33> Reevaluation #3: I spoke to the patient on the phone this morning, her fever has broken she has not had a fever now for greater than 12 hours she feels a lot better. Her blood cultures I reviewed with her have not grown anything. Continue with her management would be appropriate as she is doing well. Ongoing fevers chills or other signs and symptoms. <Maury Ugalde MD - Last Filed: 02/07/25 08:33> Vital Signs Vital signs: Initial Vital Signs Temperature 97.8 F 02/05/25 22:53 Temperature Source Temporal Artery Scan 02/05/25 22:53 Pulse Rate 100 02/05/25 22:53 Pulse Rhythm Regular 02/05/25 22:53 Respiratory Rate 16 02/05/25 22:53 Blood Pressure 117/77 02/05/25 22:53 Blood Pressure Mean 90 02/05/25 22:53 Blood Pressure Position Sitting 02/05/25 22:53 Pulse Oximetry 96 02/05/25 22:53 Oxygen Delivery Method Room Air 02/05/25 22:53 Vital Signs Temperature 97.8 F 02/05/25 22:53 Pulse Rate 100 02/05/25 22:53 Respiratory Rate 16 02/05/25 22:53 Blood Pressure 117/77 02/05/25 22:53 Pulse Oximetry 96 02/05/25 22:53 Oxygen Delivery Method Room Air 02/05/25 22:53 Temperature 97.8 F 02/05/25 23:42 Pulse Rate 90 02/06/25 02:14 Respiratory Rate 18 02/06/25 02:14 Blood Pressure 109/70 02/06/25 02:14 Pulse Oximetry 100 02/06/25 02:14 Oxygen Delivery Method Room Air 02/06/25 02:14 <Russ Mccall MD - Last Filed: 02/14/25 23:37> Initial Vital Signs Temperature 97.8 F 02/05/25 22:53 Temperature Source Temporal Artery Scan 02/05/25 22:53 Pulse Rate 100 02/05/25 22:53 Pulse Rhythm Regular 02/05/25 22:53 Respiratory Rate 16 02/05/25 22:53 Blood Pressure 117/77 02/05/25 22:53 Blood Pressure Mean 90 02/05/25 22:53 Blood Pressure Position Sitting 02/05/25 22:53 Pulse Oximetry 96 02/05/25 22:53 Oxygen Delivery Method Room Air 02/05/25 22:53 Vital Signs Temperature 97.8 F 02/05/25 22:53 Pulse Rate 100 02/05/25 22:53 Respiratory Rate 16 02/05/25 22:53 Blood Pressure 117/77 02/05/25 22:53 Pulse Oximetry 96 02/05/25 22:53 Oxygen Delivery Method Room Air 02/05/25 22:53 Temperature 97.8 F 02/05/25 23:42 Pulse Rate 90 02/06/25 02:14 Respiratory Rate 18 02/06/25 02:14 Blood Pressure 109/70 02/06/25 02:14 Pulse Oximetry 100 02/06/25 02:14 Oxygen Delivery Method Room Air 02/06/25 02:14 <Maury Ugalde MD - Last Filed: 02/07/25 08:33> Medications Administered Medications: Discontinued Medications Generic Name Dose Route Start Last Admin Trade Name Freq PRN Reason Stop Dose Admin Sodium Chloride 1,000 mls @ 1,000 mls/hr 02/05/25 23:15 02/06/25 02:15 0.9 % Sodium Chloride 1000 Ml IV 02/06/25 00:14 Infused .Q1H SHAH[facility]AR Infusion <Russ Mcclal MD - Last Filed: 02/14/25 23:37> Discontinued Medications Generic Name Dose Route Start Last Admin Trade Name Freq PRN Reason Stop Dose Admin Sodium Chloride 1,000 mls @ 1,000 mls/hr 02/05/25 23:15 02/06/25 02:15 0.9 % Sodium Chloride 1000 Ml IV 02/06/25 00:14 Infused .Q1H [facility] Infusion <Maury Ugalde MD - Last Filed: 02/07/25 08:33> Medical Decision Making Lab Data Lab results reviewed: Yes I reviewed the patient's lab results <Maury Ugalde MD - Last Filed: 02/07/25 08:33> Labs: Lab Results 02/05/25 02/05/25 Range/Units 00:48 23:36 WBC 6.28 (4.50-11.00) K/uL RBC 3.96 L (4.00-5.20) m/uL Hgb 11.5 L (12.0-16.0) gm/dL Hct 35.5 (33.0-51.0) % MCV 90 (80-100) fL MCH 29 (26-34) pg MCHC 32 (32-36) gm/dL RDW Coeff of Elyssa 14.7 (11.5-15.5) % Plt Count 261 (140-440) K/uL Neut % (Auto) 91.5 H (42.0-72.0) % Lymph % (Auto) 1.8 L (20-44) % [place] % (Auto) 4.8 (0.0-11.0) % Eos % (Auto) 0.2 (0.0-7.0) % Baso % (Auto) 0.3 (0.0-3.0) % Neut # (Auto) 5.70 (1.7-7.0) K/uL Lymph # (Auto) 0.10 L (0.90-2.90) K/uL [place] # (Auto) 0.30 (0.00-0.90) K/UL Eos # (Auto) 0.01 (0.00-0.50) K/uL Baso # (Auto) 0.02 (0.00-0.30) K/uL Abs Immat Gran (auto) 0.09 (0.00-0.30) K/uL Imm/Tot Granulo (auto) 1.4 % Sodium 135 (135-149) mmol/L Potassium 4.0 (3.6-5.1) mmol/L Chloride 99 (96-114) mmol/L Carbon Dioxide 26 (20-32) mmol/L Anion Gap 10 (7-15) mEq/L BUN 15 (5-24) mg/dL Creatinine 0.7 (0.5-1.5) mg/dL Estimated Creat Clear 95.02 Estimated GFR 114 ml/min Glucose 135 H (60-115) mg/dL Calcium 8.6 (8.4-10.6) mg/dL Magnesium 2.0 (1.5-2.6) mg/dL Total Bilirubin 0.4 (0.1-1.5) mg/dL Direct Bilirubin 0.2 (0.0-0.5) mg/dL AST 30 (12-35) U/L ALT 35 (4-35) U/L Alkaline Phosphatase 77 (40-150) U/L Total Protein 7.7 (6.0-8.3) g/dL Albumin 4.3 (3.3-5.0) g/dL Urine Color Yellow (Yellow) Urine Appearance Clear (Clear) Urine pH 7.5 (5.0-8.5) Ur Specific [place] 1.015 (1.000-1.030) Urine Protein Negative (Negative) Urine Glucose (UA) Negative (Negative) Urine Ketones Negative (Negative) Urine Blood Negative (Negative) Urine Nitrite Negative (Negative) Urine Bilirubin Negative (Negative) Urine Urobilinogen 0.2 (0.2-1.0) Ur Leukocyte Esterase Negative (Negative) Urine RBC 0-2 (0-2) Urine WBC 0-2 (0-5) Ur Squamous Epith Cells None (None-Few) Urine Bacteria None (None) SARS-CoV-2 (PCR) Negative SARS-CoV-2 (Negative) Influenza Type A (PCR) Negative PCR FLU A (Negative) Influenza Type B (PCR) Negative PCR FLU B (Negative) RSV (PCR) Negative PCR RSV (Negative) <Russ Mccall MD - Last Filed: 02/14/25 23:37> Lab Results 02/05/25 02/05/25 Range/Units 00:48 23:36 WBC 6.28 (4.50-11.00) K/uL RBC 3.96 L (4.00-5.20) m/uL Hgb 11.5 L (12.0-16.0) gm/dL Hct 35.5 (33.0-51.0) % MCV 90 (80-100) fL MCH 29 (26-34) pg MCHC 32 (32-36) gm/dL RDW Coeff of Elyssa 14.7 (11.5-15.5) % Plt Count 261 (140-440) K/uL Neut % (Auto) 91.5 H (42.0-72.0) % Lymph % (Auto) 1.8 L (20-44) % [place] % (Auto) 4.8 (0.0-11.0) % Eos % (Auto) 0.2 (0.0-7.0) % Baso % (Auto) 0.3 (0.0-3.0) % Neut # (Auto) 5.70 (1.7-7.0) K/uL Lymph # (Auto) 0.10 L (0.90-2.90) K/uL [place] # (Auto) 0.30 (0.00-0.90) K/UL Eos # (Auto) 0.01 (0.00-0.50) K/uL Baso # (Auto) 0.02 (0.00-0.30) K/uL Abs Immat Gran (auto) 0.09 (0.00-0.30) K/uL Imm/Tot Granulo (auto) 1.4 % Sodium 135 (135-149) mmol/L Potassium 4.0 (3.6-5.1) mmol/L Chloride 99 (96-114) mmol/L Carbon Dioxide 26 (20-32) mmol/L Anion Gap 10 (7-15) mEq/L BUN 15 (5-24) mg/dL Creatinine 0.7 (0.5-1.5) mg/dL Estimated Creat Clear 95.02 Estimated GFR 114 ml/min Glucose 135 H (60-115) mg/dL Calcium 8.6 (8.4-10.6) mg/dL Magnesium 2.0 (1.5-2.6) mg/dL Total Bilirubin 0.4 (0.1-1.5) mg/dL Direct Bilirubin 0.2 (0.0-0.5) mg/dL AST 30 (12-35) U/L ALT 35 (4-35) U/L Alkaline Phosphatase 77 (40-150) U/L Total Protein 7.7 (6.0-8.3) g/dL Albumin 4.3 (3.3-5.0) g/dL Urine Color Yellow (Yellow) Urine Appearance Clear (Clear) Urine pH 7.5 (5.0-8.5) Ur Specific [place] 1.015 (1.000-1.030) Urine Protein Negative (Negative) Urine Glucose (UA) Negative (Negative) Urine Ketones Negative (Negative) Urine Blood Negative (Negative) Urine Nitrite Negative (Negative) Urine Bilirubin Negative (Negative) Urine Urobilinogen 0.2 (0.2-1.0) Ur Leukocyte Esterase Negative (Negative) Urine RBC 0-2 (0-2) Urine WBC 0-2 (0-5) Ur Squamous Epith Cells None (None-Few) Urine Bacteria None (None) SARS-CoV-2 (PCR) Negative SARS-CoV-2 (Negative) Influenza Type A (PCR) Negative PCR FLU A (Negative) Influenza Type B (PCR) Negative PCR FLU B (Negative) RSV (PCR) Negative PCR RSV (Negative) <Maury Ugalde MD - Last Filed: 02/07/25 08:33> Discharge Plan Discharge Clinical Impression: Fever of unknown origin, Patient on antineoplastic chemotherapy regimen, Breast cancer <Russ Mccall MD - Last Filed: 02/14/25 23:37> Patient Disposition: Home w/ Parent or Adult <Russ Mccall MD - Last Filed: 02/14/25 23:37> Condition: Stable <Russ Mccall MD - Last Filed: 02/14/25 23:37> Instructions: Fever in Adults (ED) <Russ Mccall MD - Last Filed: 02/14/25 23:37> Additional Instructions: Home rest, Tylenol for the discomfort, I suspect that this is from the chemotherapy but not 100% certain. We will have to be vigilant and watch for signs and symptoms of worsening such as chest pain, abdominal pain, rashes, or other issues, where he should come back to the ER. <Russ Mccall MD - Last Filed: 02/14/25 23:37> Activity Level: Light activity <Russ Mccall MD - Last Filed: 02/14/25 23:37> Light activity <Maury Ugalde MD - Last Filed: 02/07/25 08:33> Discharge Diet: Regular <Russ Mccall MD - Last Filed: 02/14/25 23:37> Regular <Maury Ugalde MD - Last Filed: 02/07/25 08:33> Stand Alone Forms: MyHealth Info Instructions <Russ Mccall MD - Last Filed: 02/14/25 23:37>
--- NOTE | 2025-02-05 23:09 | CRLHL7_ITS ---
For Patients: As a result of the Cures Act, medical imaging exams and procedure reports are released immediately into your electronic medical record. You may view this report before your referring provider. If you have questions, please contact your health care provider. INDICATION: Fever. TECHNIQUE: Chest 2 views. COMPARISON: None. FINDINGS: Cardiovascular and mediastinum: Cardiomediastinal silhouette is within normal limits. Right chest wall port catheter tip terminates in the SVC. Lungs and pleural spaces: Lungs are clear. No sign of infiltrate or mass. No sign of pleural effusion. No pneumothorax. Bones and soft tissues: No significant findings. IMPRESSION: No acute cardiopulmonary abnormality. Dictated by Azeem Wilson MD @ 02/06/2025 12:57:31 AM (Electronically Signed)
[2025-02-05 23:42] VITALS: BP 117/77; PULSE 100; RESP 16; TEMP 36.6; O2SAT 96
[2025-02-05 23:53] LABS: Hematocrit* 35.5 % (33.0-51.0); Hemoglobin* 11.5 gm/dL (12.0-16.0); Immature Granulocytes Abs Auto 0.09 K/uL (0.00-0.30); Immature Granulocytes Pct Auto 1.4 %; Mean Corpuscular HGB Conc 32 gm/dL (32-36); Mean Corpuscular Hemoglobin 29 pg (26-34); Mean Corpuscular Volume 90 fL (80-100); RDW Coefficient of Variation % 14.7 % (11.5-15.5); Red Blood Count* 3.96 m/uL (4.00-5.20); White Blood Count* 6.28 K/uL (4.50-11.00)
[2025-02-05 23:55] LABS: Albumin* 4.3 g/dL (3.3-5.0); Chloride* 99 mmol/L (96-114)
[2025-02-05 23:56] LABS: Potassium* 4.0 mmol/L (3.6-5.1); Sodium* 135 mmol/L (135-149)
[2025-02-05 23:58] LABS: Anion Gap 10 mEq/L (7-15); Blood Urea Nitrogen* 15 mg/dL (5-24); Carbon Dioxide* 26 mmol/L (20-32); Creatinine* 0.7 mg/dL (0.5-1.5); Est. Creatinine Clearance* 95.02; Estimated Glomerular Filt Rate 114 ml/min
[2025-02-05 23:59] LABS: Alanine Aminotransferase* 35 U/L (4-35); Alkaline Phosphatase* 77 U/L (40-150); Aspartate Amino Transferase* 30 U/L (12-35); Bilirubin Direct* 0.2 mg/dL (0.0-0.5); Bilirubin Total* 0.4 mg/dL (0.1-1.5); Calcium* 8.6 mg/dL (8.4-10.6); Glucose* 135 mg/dL (60-115); Lymphocytes Absolute Auto 0.10 K/uL (0.90-2.90); Slide Review Reflex No; Total Protein* 7.7 g/dL (6.0-8.3)
[2025-02-06 00:21] LABS: PCR FLU A Negative PCR FLU A (Negative); PCR FLU B Negative PCR FLU B (Negative); PCR RSV Negative PCR RSV (Negative); SARS PCR* Negative SARS-CoV-2 (Negative)
[2025-02-06 00:56] LABS: Appearance Urine Clear (Clear)
--- OUTSIDE RECORDS SUMMARY | 2025-02-06 01:08 | XMS_ITS | Continuity of Care Document ---
Author Name [facility] Organization [facility] Care Team Providers Care Balance Truing Inspector Name Role Phone [facility] Unavailable Unavailable Problems Combined list of problems from Department of Defense and Veterans Affairs facilities. It does not include entries that were removed or entered in error. Problem Status Onset Date Problem Type Date of Resolution Comments Source Need For Vaccination Against Influenza Inactive Condition DoD Medications Combined list of outpatient medications from Department of Defense and Veterans Affairs facilities.Medications provided include 1) outpatient medications from the last 15 months, and 2) patient-reported medications. Medication Details Route Status Indication(s) Patie nt Instructions Prescription Expires Prescription Number Last Dispense Date Ordering Provider Order Date Order Qty Source Advair HFA 115-21 mcg inhaler (12g) See Instruct ions, # 36 g, 0 total refill(s ), Hard Stop Complet ed 10/08/2023 3 2023 36.0 Ambulat ory Pharmac y Advair HFA 115-21 mcg inhaler (12g) = 2 puff(s), Inhale, BID, # 36 g, 3 total refill(s ), Hard Stop Inhala tion (breat he in) Complet ed 02/20/2024 4 2023 36.0 Ambulat ory Pharmac y Advair HFA 115-21 mcg inhaler (12g) = 2 puff(s), Inhale, BID, # 36 g, 3 total refill(s ), Hard Stop Inhala tion (breat he in) Complet ed 08/11/2022 3 2022 36.0 Ambulat ory Pharmac y albuterol 90 mcg inhaler [8.5g] See Rx Instruct ions, Inhale, # 25.5 g, 3 total refill(s ), Hard Stop Inhala tion (breat he in) Complet ed 08/11/2022 3 2022 25.5 Ambulat ory Pharmac y albuterol 90 mcg inhaler [8.5g] See Instruct ions, Inhale, every 4 hr, # 25.5 g, 3 total refill(s ), Hard Stop Inhala tion (breat he in) Ordered 04/07/2025 5 2024 25.5 Ambulat ory Pharmac y azelastine 137 mcg/inh (0.1%) nasal spray USE 1 TO 2 SPRAYS IN EACH NOSTRIL TWICE A DAY DIRECTED , # 90 mL, 1 total refill(s ), Acute Complet ed 01/10/2022 2 2021 90.0 Ambulat ory Pharmac y azelastine 137 mcg/inh nasal spray [30mL] See Rx Instruct ions, Nostril- Both, # 60 mL, 3 total refill(s ), Hard Stop Nostri l-Both (into the nose) Complet ed 08/11/2022 3 2022 60.0 Ambulat ory Pharmac y azelastine 137 mcg/inh nasal spray [30mL] 137 mcg, Nostril- Both, BID, # 60 mL, 3 total refill(s ), Hard Stop Nostri l-Both (into the nose) Complet ed 02/20/2024 3 2023 60.0 Ambulat ory Pharmac y azelastine 137 mcg/inh nasal spray [30mL] See Instruct ions, Nostril- Both, # 60 mL, 3 total refill(s ), Hard Stop Nostri l-Both (into the nose) Ordered 04/07/2025 5 2024 60.0 Ambulat ory Pharmac y fluticasone -salmeterol 115-21 mcg inhaler (12g) See Instruct ions, Inhale, # 36 g, 0 total refill(s ), Hard Stop Inhala tion (breat he in) Complet ed 07/07/2024 5 2024 36.0 Ambulat ory Pharmac y fluticasone -salmeterol 115-21 mcg inhaler (12g) See Instruct ions, Inhale, BID, # 12 g, 6 total refill(s ), Soft Stop Inhala tion (breat he in) Ordered 2024 12.0 Ambulat ory Pharmac y fluticasone -salmeterol 115-21 mcg inhaler (12g) = 2 inh(s), Inhale, BID, # 12 g, 1 total refill(s ), Hard Stop Inhala tion (breat he in) Ordered 02/23/2025 2024 12.0 Ambulat ory Pharmac y Freestyle 28g lancets [100EA] See Instruct ions, # 100 EA, 0 total refill(s ), Hard Stop Complet ed 10/28/2023 4 2023 100.0 Ambulat ory Pharmac y Freestyle 28g lancets [100EA] See Instruct ions, # 200 EA, 0 total refill(s ), Hard Stop Complet ed 02/09/2024 4 2023 200.0 Ambulat ory Pharmac y Freestyle [place] Lite Monitor See Instruct ions, # 1 EA, 0 total refill(s ), Hard Stop Complet ed 01/19/2024 4 2023 1.0 Ambulat ory Pharmac y freestyle lite (glucose) test strip [50EA] See Instruct ions, # 100 EA, 0 total refill(s ), Hard Stop Complet ed 10/23/2023 4 2023 100.0 Ambulat ory Pharmac y freestyle lite (glucose) test strip [50EA] See Instruct ions, # 100 EA, 3 total refill(s ), Hard Stop Complet ed 12/18/2024 4 2024 100.0 Ambulat ory Pharmac y loratadine 10 mg tablet 10 mg, # 90 EA, 3 total refill(s ), Hard Stop Complet ed 08/11/2022 3 2022 90.0 Ambulat ory Pharmac y loratadine 10 mg tablet 10 mg, Oral, Daily, # 90 EA, 3 total refill(s ), Hard Stop Oral (given by mouth) Complet ed 02/20/2024 3 2023 90.0 Ambulat ory Pharmac y loratadine 10 mg tablet See Instruct ions, Oral, # 90 EA, 3 total refill(s ), Hard Stop Oral (given by mouth) Ordered 04/07/2025 5 2024 90.0 Ambulat ory Pharmac y loratadine 10 mg tablet See dose instruct ions in comments , # 90 EA, 1 total refill(s ), Acute Complet ed 01/10/2022 2 2021 90.0 Ambulat ory Pharmac y predniSONE 20 mg tablet See Instruct ions, # 10 EA, 0 total refill(s ), Hard Stop Complet ed 03/04/2024 4 2023 10.0 Ambulat ory Pharmac y Proair 90 mcg inhaler [8.5g] See dose instruct ions in comments , # 17 g, 2 total refill(s ), Acute Complet ed 01/10/2022 2 2021 17.0 Ambulat ory Pharmac y ProAir RespiClick 90 mcg inhaler [200] = 2 puff(s), Inhale, every 4 hr, # 1 EA, 3 total refill(s ), Hard Stop Inhala tion (breat he in) Complet ed 02/20/2024 4 2023 1.0 Ambulat ory Pharmac y triamcinolo ne 0.1% cream [30g] See Instruct ions, 0, 0, # 60 g, 5 total refill(s ), Hard Stop Complet ed 02/20/2024 4 2023 60.0 Ambulat ory Pharmac y triamcinolo ne 0.1% cream [80g] See Instruct ions, # 240 g, 2 total refill(s ), Hard Stop Ordered 04/07/2025 5 2024 240.0 Ambulat ory Pharmac y Allergies, Adverse Reactions, Alerts Combined list of allergies from Department of Defense and Veterans Affairs facilities. It does not include entries that were removed or entered in error. Substance Category Reaction Severity Reaction type Status Date Reported Comments Source No Known Allergies Drug allergy (disorder) active 11/08/2014 [facility] Immunizations Combined list of available immunizations from the Department of Defense and [facility] facilities. Immunization Series Date Given Administered By Site Reaction Lot Number CVX Code Drug Portable Canteen Operator Status Comments Source influenza virus vaccine, unspecified 2011 zCarolineef t Arm [id number] 1A 88 CSL Behring complet ed influenza virus vaccine, unspecifi ed 01/14/12 Given Ambulat ory Pharmac y influenza virus vaccine, unspecified formulation 1 2011 NATALIIA CAICEDO [id number] 1A 88 [employer] (CSL) complet ed influenza virus vaccine, unspecifi ed formulati on DoD influenza virus vaccine,split 2010 zzLef t Arm [id number] sanofi pasteur complet ed influenza virus vaccine,s plit 02/07/11 Given Ambulat ory Pharmac y influenza virus vaccine, split virus (incl. purified surface antigen)-reti red CODE 1 2010 LUIS STOUT Claudio [id number] Sanofi Pasteur ([facility]) complet ed influenza virus vaccine, split virus (incl. purified surface antigen)- retired CODE DoD Encounters Combined list of: 1) Encounters from Department of Veterans Affairs facilities going backup to the last 18 months, not all VA inpatient encounters are included; 2) Encounters from the Department of [facility] facilities going backup to 280 months. Location Location Details Encounter Type Encounter Number Reason For Visit Attending Provider ADM Date DC Date Status Disposition Source [place] OUTPATIENT [id number] flu LUIS STOUT Claudio 02/07 Released w/o Limitations [place] OUTPATIENT [id number] Notes Entered by: NATALIIA CAICEDO 14 Jan 2012 1338 ------- ------- ------- ------- -- flu vax inj NATALIIA CAICEDO 01/13 Released w/o Limitations [place]) Procedures Combined list of: 1) Procedures from Department of [facility] facilities going back up to thelast 18 months, not all VA non-surgical procedures are included; 2) All procedures from the Department of Defense facilities. Procedure Procedure Type Code Date Perfomer Comments [facility] IMMUNIZATION ADMINISTRATION (INCLUDES PERCUTANEOUS, INTRADERMAL, SUBCUTANEOUS, OR INTRAMUSCULAR INJECTIONS); 1 VACCINE (SINGLE OR COMBINATION VACCINE/TOXOID) [facility] IMMUNIZATION ADMINISTRATION (INCLUDES PERCUTANEOUS, INTRADERMAL, SUBCUTANEOUS, OR INTRAMUSCULAR INJECTIONS); 1 VACCINE (SINGLE OR COMBINATION VACCINE/TOXOID) [facility] Influenza Split Virus Vaccine 0.5mL Dosage Intramuscular NATALIIA CAICEDO Influenza NOS; Series #: 1; .5 mL; IM; Left Arm; 120 Sportsg: [employer]; Lot: [id number]. DoD Immunization Administration By Injection, One Vaccine Immunization Administration By Injection, One Vaccine 59637 NATALIIA CAICEDO [facility] Influenza Split Virus Vaccine 0.5mL Dosage Intramuscular Preservative Free LUIS STOUT [facility] Immunization Administration By Injection, One Vaccine Immunization Administration By Injection, One Vaccine 37378 ARGELIA LUIS Snyder [facility] No data available for this section Ambulato ry Pharmacy Social History Combined list of available smoking, tobacco, and other social history from Department of Defense and Veterans Affairs facilities. Social History Type Response Date Comment [facility] This section is an empty social history section. [facility] Assessment and Plan Combined list of future care activities from Department of Defense and Veterans Affairs facilities (e.g., assessment and plan notes, appointments, orders, and referrals). Additional future care activities may be listed in the Plan of Care section. Result Assessment and Plan Date Source Assessment and Plan No data available for this section 02/06/2025 Ambulatory Pharmacy Functional Status Combined list of recent functional and cognitive assessments recorded at Department of Defense and Veterans Affairs (VA).VA Functional Hamilton Measurement (FIM) Scale: 1 = Total Assistance (Subject = 0% +), 2 = Maximal Assistance (Subject = 25% +), 3 = Moderate Assistance (Subject = 50% +), 4 = Minimal Assistance (Subject = 75% +), 5 = Supervision, 6 = Modified Hamilton (Device), 7 = Complete Hamilton (Timely, Safely). Assessment Date/Time Source Assessment Type Assessment Skill Assessment Score Assessment Details No data available for this section
--- OUTSIDE RECORDS SUMMARY | 2025-02-06 01:09 | XMS_ITS | Encounter Summary ---
Author Organization [facility] Address [address] [place] [address] Care Team Providers Care Melter Helper Name Role Phone Unavailable Primary Care Provider Unavailabl e Reason for Visit * Reason Onset Date Comments New Fever 12/28/2024 Encounter Details Date Type Department Care Team ([facility] st Contact Info) Description 12/28/2024 Clinical Communication Department of Oncology in [place], [place] [address] [place] [phone] Lizzette Corona R.N. [address] [place] [phone] New Fever Social History Tobacco Use Types Packs/Day Years [...] things needed for daily living? No 11/17/2024 [facility] Utilities Answer Date Recorded In the past 12 months has e electric, gas, oil, or water company threatened to shut off services in your home? No 11/17/2024 Housing Stability Answer Date Recorded What is your living situation today? I have a [facility] place to live 11/17/2024 Comments No Sex and Gender Information Value Date Recorded Sex Assigned at Female 11/17/2024 12:38 PM CDT Legal Sex Female 12:31 PM CDT Gender Identity Female 11/17/2024 12:38 PM CDT Sexual Orientation Straight 11/17/2024 12 :38 PM CDT documented as of this encounter Miscellaneous Notes * Telephone Encounter - Lizzette Corona R.N. - 12/28/2024 1:28 PM CDT SUBJECTIVE CHIEF COMPLAINT / REASON FOR CALL New Fever PHILATELIC CONSULTANT spoke with Jazlyn who was extremely chilled, snuggled under many blankets, and noticed a fever develop across the morning. She just rechecked her temperature and spiked to 100.5-101. Given the presence of a true fever and with Carbo/Taxol given on 12/25/24, RN advised reporting to the closest Emergency Department for evaluation. RN advised not taking Tylenol and her has the day off- able to drive her to the ED. Jazlyn voiced her understanding and agreement with the plan. PLAN Disposition/Recommendation: recommended to report to the nearest emergency department. Information/Education: patient/caller able to teach back. Caller agreeable to plan of care: yes. The following references were used: nursing clinical judgement. documented in this encounter Plan of Treatment Upcoming Encounters Date Type Department Care Team (Latest Contact Info) Description 02/12/2025 8:45 AM METALLURGICAL SPECIALIST Lab Department of Oncology in [place], [place] [address] [place] [address] Bradley Booker M.D. [address] [place] [address] 02/12/2025 11:30 AM METALLURGICAL SPECIALIST Infusion Department of Oncology in [place], [place] [address] [place] [address] Bradley Booker M.D. [address] [place] [phone] 02/17/2025 9:15 AM METALLURGICAL SPECIALIST Clinical Communication Virtual Review in [place], [place] 200 [place] [address] 02/18/2025 8:00 AM METALLURGICAL SPECIALIST Lab Department of Oncology in [place], [place] [address] [place] [phone] Bradley Booker M.D. [address] [place] [phone] 02/18/2025 10:00 AM METALLURGICAL SPECIALIST Office Visit Division of Hematology in [place], [place] [address] [place] [phone] Latrice Gomez M.D. [address] [place] [phone] 02/18/2025 10:30 AM METALLURGICAL SPECIALIST Infusion Department of Oncology in [place], [place] [address] [place] [phone] Bradley Booker M.D. [address] [place] [phone] 02/26/2025 7:00 AM METALLURGICAL SPECIALIST Lab Department of Oncology in [place], [place] [address] [place] [phone] Bradley Booker M.D. [address] [place] [phone] 02/26/2025 9:00 AM METALLURGICAL SPECIALIST Infusion Department of Oncology in [place], [place] [address] [place] [phone] Bradley Booker M.D. [address] [place] [phone] 03/05/2025 7:00 AM METALLURGICAL SPECIALIST Lab Department of Oncology in [place], [place] [address] [place] [address] Bradley Booker M.D. [address] [place] [phone] 03/05/2025 9:00 AM METALLURGICAL SPECIALIST Infusion Department of Oncology in [place], [place] [address] [place] [address] Bradley Booker M.D. [address] [place] [phone] 03/19/2025 10:30 AM METALLURGICAL SPECIALIST Lab Department of Laboratory Medicine and Pathology, [facility] in [place], [place] [address] [place] [phone] Bradley Booker M.D. [address] [place] [phone] 03/19/2025 2:00 PM METALLURGICAL SPECIALIST Infusion Department of Oncology in [place], [place] [address] [place] [phone] Bradley Booker M.D. [address] [place] [phone] 03/23/2025 10:00 AM METALLURGICAL SPECIALIST Telemedicine Division of Breast and Melanoma Surgical Oncology in [place], [place] [address] [place] [phone] Kell Craven APRN, C.N.P., D.N.P. [address] [place] [phone] 03/25/2025 3:20 PM METALLURGICAL SPECIALIST Comprehensive Visit Department of Oncology in [place], [place] [address] [place] [phone] Kilo Patel APRN, C.N.P., D.N.P. [address] [place] [phone] 04/08/2025 9:30 AM METALLURGICAL SPECIALIST Clinical Communication Virtual Review in [place], [place] 200 [place] [address] 04/09/2025 8:00 AM METALLURGICAL SPECIALIST Lab Department of Oncology in [address] [phone] Bradley Booker M.D. [address] [place] [phone] 04/09/2025 10:00 AM METALLURGICAL SPECIALIST Office Visit Department of Oncology in [address] [phone] Bradley Booker M.D. [address] [place] [phone] 04/09/2025 11:00 AM METALLURGICAL SPECIALIST Infusion Department of Oncology in [address] [phone] Bradley Booker M.D. [address] [place] [phone] documented as of this encounter Visit Diagnoses Not on filedocumented in this encounter Additional Health Concerns Infection Onset Date Last Indicated Resolved Time Protective Environment 12/11/2024 12/11/2024 documented as of this encounter
--- OUTSIDE RECORDS SUMMARY | 2025-02-06 01:10 | XMS_ITS | Encounter Summary ---
Author Organization [facility] Address [address] [place] [address] Care Team Providers Care Information Operator Name Role Phone Unavailable Primary Care Provider Unavailabl e Reason for Visit * Reason Onset Date Comments Appt Request 12/30/2024 Encounter Details Date Type Department Care Team (Late st Contact Info) Description 12/30/2024 Clinical Communication Department of Oncology in [place], [place] [address] [place] [phone] Bradley Booker M.D. [address] [place] [address] Appt Request Social History Tobacco Use Types Packs/Day Years [...] things needed for daily living? No 11/17/2024 [facility] Utilities Answer Date Recorded In the past 12 months has [facility] [email or web address], [employer], oil, or water company threatened to shut off services in your home? No 11/17/2024 Housing Stability Answer Date Recorded What is your living situation today? [facility] 11/17/2024 Comments No [...] (Latest Contact Info) Description 02/12/2025 8:45 AM ART SUPERVISOR Lab Department of Oncology in [place], [place] [address] [place] [phone] Bradley Booker M.D. [address] [place] [phone] 02/12/2025 11:30 AM ART SUPERVISOR Infusion Department of Oncology in [place], [place] [address] [place] [phone] Bradley Booker M.D. [address] [place] [phone] 02/17/2025 9:15 AM ART SUPERVISOR Clinical Communication Virtual Review in [place], [place] [address] [place] [address] 02/18/2025 8:00 AM ART SUPERVISOR Lab Department of Oncology in [place], [place] [address] [place] [phone] Bradley Booker M.D. [address] [place] [phone] 02/18/2025 10:00 AM ART SUPERVISOR Office Visit Division of Hematology in [place], [place] [address] [place] [phone] Latrice Gomez M.D. [address] [place] [phone] 02/18/2025 10:30 AM ART SUPERVISOR Infusion Department of Oncology in [place], [place] [address] [place] [phone] Bradley Booker M.D. [address] [place] [phone] 02/26/2025 7:00 AM ART SUPERVISOR Lab Department of Oncology in [place], [place] [address] [place] [phone] Bradley Booker M.D. [address] [place] [phone] 02/26/2025 9:00 AM ART SUPERVISOR Infusion Department of Oncology in [place], [place] [address] [place] [address] Bradley Booker M.D. [address] [place] [phone] 03/05/2025 7:00 AM ART SUPERVISOR Lab Department of Oncology in [place], [place] [address] [place] [phone] Bradley Booker M.D. [address] [place] [phone] 03/05/2025 9:00 AM ART SUPERVISOR Infusion Department of Oncology in [place], [place] [address] [place] [phone] Bradley Booker M.D. [address] [place] [phone] 03/19/2025 10:30 AM ART SUPERVISOR Lab Department of Laboratory Medicine and Pathology, [facility], in [place], [place] [address] [place] [address] Bradley Booker M.D. [address] [place] [phone] 03/19/2025 2:00 PM ART SUPERVISOR Infusion Department of Oncology in [place], [place] [address] [place] [phone] Bradley Booker M.D. [address] [place] [phone] 03/23/2025 10:00 AM ART SUPERVISOR Telemedicine Division of Breast and Melanoma Surgical Oncology in [address] [phone] Kell Craven APRN, C.N.P., D.N.P. [address] [place] [phone] 03/25/2025 3:20 PM ART SUPERVISOR Comprehensive Visit Department of Oncology in [address] [phone] Kilo Patel, DWAYNE, C.N.P., D.N.P. [address] [place] [phone] 04/08/2025 9:30 AM ART SUPERVISOR Clinical Communication Virtual Review in [place], [place] 200 [place] [address] 04/09/2025 8:00 AM ART SUPERVISOR Lab Department of Oncology in [place], [place] [address] [place] [phone] Bradley Booker M.D. [address] [place] [phone] 04/09/2025 10:00 AM ART SUPERVISOR Office Visit Department of Oncology in [address] [phone] Bradley Booker M.D. [address] [place] [phone] 04/09/2025 11:00 AM ART SUPERVISOR Infusion Department of Oncology in [place], [place] [address] [place] [address] Bradley Booker M.D. [address] [place] [address] documented as of this encounter Visit Diagnoses Not on filedocumented in this encounter Additional Health Concerns Infection Onset Date Last Indicated Resolved Time Protective Environment 12/11/2024 12/11/2024 documented as of this encounter
--- OUTSIDE RECORDS SUMMARY | 2025-02-06 01:10 | XMS_ITS | Encounter Summary ---
[facility] Organization [facility] Address [address] [place] [address] Care Team Providers Care Stock Checkerer Name Role Phone Unavailable Primary Care Provider Unavailabl e Reason for Visit * Reason Onset Date Comments SX-fever 12/28/2024 Encounter Details Date Type Department Care Team (Late st Contact Info) Description 12/28/2024 Clinical Communication Department of Oncology in [place], [place] [address] [place] [phone] Nirmala Taylor R.N. SX-fever Social History Tobacco Use Types Packs/Day Years [...] things needed for daily living? No 11/17/2024 [facility] Utilities Answer Date Recorded In the past 12 months has e electric, gas, oil, or water company threatened to shut off services in your home? No 11/17/2024 Housing Stability Answer Date Recorded What is your living situation today? I have a [facility] place to live 11/17/2024 Comments No Sex and Gender Information Value Date Recorded Sex Assigned at Female 11/17/2024 12:38 PM CDT Legal Sex Female 12:31 PM CDT Gender Identity Female 11/17/2024 12:38 PM CDT Sexual Orientation Straight 11/17/2024 12 :38 PM CDT documented as of this encounter Miscellaneous Notes * Telephone Encounter - Nirmala Talyor R.N. - 12/28/2024 2:27 PM CDT See other communication encounter of today's date for Jennifer Corona's note. documented in this encounter Plan of Treatment Upcoming Encounters Date Type Department Care Team (Latest Contact Info) Description 02/12/2025 8:45 AM [facility] Lab Department of Oncology in [place], [place] [address] [place] [phone] Bradley Booker M.D. [address] [place] [phone] 02/12/2025 11:30 AM [facility] Infusion Department of Oncology in [place], [place] [address] [place] [phone] Bradley Booker M.D. [address] [place] [phone] 02/17/2025 9:15 AM [facility] Clinical Communication Virtual Review in [place], [place] [address] [place] [address] 02/18/2025 8:00 AM [facility] Lab Department of Oncology in [place], [place] [address] [place] [phone] Bradley Booker M.D. [address] [place] [phone] 02/18/2025 10:00 AM [facility] Office Visit Division of Hematology in [place], [place] [address] [place] [phone] Latrice Gomez M.D. [address] [place] [phone] 02/18/2025 10:30 AM [facility] Infusion Department of Oncology in [place], [place] [address] [place] [phone] Bradley Booker M.D. [address] [place] [phone] 02/26/2025 7:00 AM [facility] Lab Department of Oncology in [place], [place] [address] [place] [phone] Bradley Booker M.D. [address] [place] [phone] 02/26/2025 9:00 AM [facility] Infusion Department of Oncology in [place], [place] [address] [place] [phone] Bradley Booker M.D. [address] [place] [phone] 03/05/2025 7:00 AM [facility] Lab Department of Oncology in [place], [place] [address] [place] [phone] Bradley Booker M.D. [address] [place] [phone] 03/05/2025 9:00 AM [facility] Infusion Department of Oncology in [place], [place] [address] [place] [phone] Bradley Booker M.D. [address] [place] [phone] 03/19/2025 10:30 AM [facility] Lab Department of Laboratory Medicine and Pathology, [facility], in [place], [place] [address] [place] [phone] Bradley Booker M.D. [address] [place] [phone] 03/19/2025 2:00 PM [facility] Infusion Department of Oncology in [place], [place] [address] [place] [phone] Bradley Booker M.D. [address] [place] [phone] 03/23/2025 10:00 AM [facility] Telemedicine Division of Breast and Melanoma Surgical Oncology in [address] [phone] Kell Craven APRN, C.N.P., D.N.P. [address] [place] [phone] 03/25/2025 3:20 PM [facility] Comprehensive Visit Department of Oncology in [address] [phone] Kilo Patel APRN, C.N.P., D.N.P. [address] [place] [phone] 04/08/2025 9:30 AM [facility] Clinical Communication Virtual Review in [place], [place] [address] [place] [address] 04/09/2025 8:00 AM [facility] Lab Department of Oncology in [address] [phone] Bradley Booker M.D. [address] [place] [phone] 04/09/2025 10:00 AM [facility] Office Visit Department of Oncology in [address] [phone] Bradley Booker M.D. [address] [place] [phone] 04/09/2025 11:00 AM [facility] Infusion Department of Oncology in [place], [place] [address] [place] [address] Bradley Booker M.D. [address] [place] [phone] documented as of this encounter Visit Diagnoses Not on filedocumented in this encounter Additional Health Concerns Infection Onset Date Last Indicated Resolved Time Protective Environment 12/11/2024 12/11/2024 documented as of this encounter
--- OUTSIDE RECORDS SUMMARY | 2025-02-06 01:11 | XMS_ITS ---
Author Organization [facility] Address [address] [place] [address] Care Team Providers Care Credit Front Office Developer Name Role Phone Unavailable Primary Care Provider Unavailabl e Active Problems * This document contains information received from the source organization and may not represent a complete record from that organization. Problem Noted Date Diagnosed Date 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 11/06/2024 Cancer Staging:Clinical stage from 10/26/2024:Stage IIIC(cT4d, cN1, cM0, G3, ER-, [place]-, HER2-) - Signed by Es Melgoza M.D., M.S., FACS on 12/14/2024 Current Treatment and Therapy Plans PACLitaxel / CARBOplatin AUC 1.5 / Pembrolizumab* Plan Start Date:11/25/2024 Plan Provider:Bradley Booker M.D. Linked Problems 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) Treatment Medications Current Day (Day 1 5, Cycle 3 - Planned for 02/11/2025) Next Day (Day 1, Cycle 4 - Planned for 02/19/2025) CARBOplatin (Paraplatin)CARBOplatin (Paraplatin) IVPB (BY AUC) in 250 mL (Paraplatin)PACLitaxel (TaxoL)PACLItaxeL (TaxoL) IVPB in 250 mL (TaxoL)pembrolizumab (Keytruda) CARBOplatin 230 mg in NaCl 0.9% 273 mL IVPB (Paraplatin)PACLitaxeL 174 mg in NaCl 0.9% (non-PVC/non-DEHP) 279 mL IVPB (TaxoL) CARBOplatin 230 mg in NaCl 0.9% 273 mL IVPB (Paraplatin)PACLitaxeL 174 mg in NaCl 0.9% (non-PVC/non-DEHP) 279 mL IVPB (TaxoL)pembrolizumab 200 mg in NaCl 0.9% 108 mL IVPB (Keytruda) Vascular Access Patency - Implanted Vascular Access Device (IVAD) Venous Non-Valved* Plan Start Date:12/11/2024 Linked Problems 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) Treatment Medications No medications scheduled. Past Treatment and Therapy Plans Flushes/Hydration Plan Name Start Date Discontinue Date Treatment Medications Discontinue Reason Plan Provider Vascular Access Patency - Peripheral Inserted Central Catheter (PICC) Non-Valved 12/11/2024 12/11/2024 No medications scheduled. Not Effective -
--- OUTSIDE RECORDS SUMMARY | 2025-02-06 01:11 | XMS_ITS | Clinical Summary ---
Author Organization [facility] Address [address] [place] [address] Care Team Providers Care Channel Program Manager Name Role Phone Unavailable Primary Care Provider Unavailabl e Source Comments Patient records contain information from all sites at [facility]. For routine questions regarding patient records, call [phone] during business hours, M-F 8:00 AM - 5:00 PM Central Time. Record requests for emergency care only can be directed to [phone] at any time.[facility] Allergies Active Allergy Reactions Criticality Noted Date Comments Animal Dander Itching Medium 11/19/2024 Mold Cough Medium 11/19/2024 Pollens Extract Itching Medium 11/19/2024 Medications * This document contains information received from the source organization and may not represent a complete record from that organization. albuterol 2.5 mg /3 mL nebulizer solution Inhale 5 mg by nebulization as needed. 5 Active albuterol 90 mcg/actuation inhaler Inhale 2 puffs as needed. 5 Active ascorbic acid, vitamin C, (Vitamin C) 100 mg tablet Take 100 mg by mouth daily. 2 Active fluticasone propion-salmete roL (Advair HFA) 115-21 mcg/actuation inhaler Inhale 2 puffs 2 (two) times a day. 5 Active loratadine (Claritin) 10 mg tablet Take 10 mg by mouth daily. Not every day, but tries to remember 5 Active triamcinolone (Kenalog) 0.1 % cream Apply 1 Application topically as needed. 5 Active Lactobacillus acidophilus (PROBIOTIC ACIDOPHILUS ORAL) Take 1 capsule by mouth daily. 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 May take dose early if needed. 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 Date Type Department Care Team Description 02/05/2025 10:30 AM CANE SPLICER Infusion Department of Oncology in [place], [place] [address] [place] [address] Bradley Booker M.D. 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 Order Request 12/30/2024 Clinical Communication Department of Oncology in [place], [place] [address] [place] [phone] Bradley Booker M.D. Appt Request 12/28/2024 Clinical Communication Department of Oncology in [place], [place] [address] [place] [phone] Nirmala Taylor R.N. SX-fever 12/28/2024 Clinical Communication Department of Oncology in [place], [place] [address] [place] [phone] Lizzette Corona R.N. New Fever 12/25/2024 11:00 AM CDT Infusion Department of Oncology in [place], [place] [address] [place] [address] Katrina Yarbrough M.D. 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 Fifield, Holly J, RAgataN. 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 Dermatopathology 12/03/2024 8:35 AM CDT - 12/03/2024 11:59 PM CDT Hospital Encounter Department of Radiology in [place], [place] [address] [place] [address] Jacinto Chan M.D. Breast Examination Abnormal Discharge Disposition: Home or Self Care 11/27/2024 2:40 PM CDT Admin Visit Department of Oncology in [place], [place] [address] [place] [address] 11/27/2024 Orders Only Division of Breast and Melanoma Surgical Oncology in [place], [place] [address] [place] [address] Diana Lewis, RAgataN. 11/26/2024 11:00 AM CDT Office Visit Breast Diagnostic Clinic in [place], [place] [address] [place] [phone] Irma Augustin P.A.-C. 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 Sullivan, Dawn M, R.N. 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 11/26/2024 Clinical Communication Department of Oncology in [place], [place] [address] [place] [phone] Lucia Birmingham, R.N. 11/25/2024 3:00 PM CDT Comprehensive Visit Department of Dermatology in [place], [place] [address] [place] [phone] Mitch Michele M.D. 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 Breast Examination Abnormal Discharge Disposition: Home or Self Care 11/25/2024 9:04 AM CDT - 11/25/2024 11:59 PM CDT Hospital Encounter Department of Radiology in [place], [place] [address] [place] [phone] Jacinto Chan M.D. Breast Examination Abnormal Discharge Disposition: Home or Self Care 11/25/2024 Documentation Section of International Medicine in [address] [phone] Patt Ye M.D. 11/25/2024 Ancillary Procedure Department of Dermatology 11/25/2024 Results Follow-Up Division of General Internal Medicine in [place], [place] [address] [place] [phone] Pb Fish BI Breast Diagnostic Bilateral with Tomosynthesis 11/24/2024 9:20 AM CDT - 11/24/2024 11:59 PM CDT Hospital Encounter Department of Radiology, [facility], in [place], [place] [address] [place] [phone] Jacinto Chan M.D. 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 CBC with Differential, Blood, Comprehensive Metabolic Panel 11/19/2024 2:20 PM CDT Clinical Communication Virtual Review in [place], [place] [address] [place] [address] Pre-visit Intake 11/11/2024 Clinical Communication Breast [facility] Clinic in [place], [place] [address] [place] [phone] Provider, Unknown Echo Move Up Request 11/10/2024 1:25 PM CDT Ancillary Procedure Department of Radiology in [place], [place] [address] [place] [phone] Jacinto Chan M.D. 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) 11/06/2024 8:00 AM CDT Clinical Communication [facility] Clinic in [place], [place] [address] [place] [phone] Jazmine Goldberg, Shelton HESTER Taj Call from Last 3 Months Immunizations Immunization Administration Dates Next Due Td Preservative Free (TENIVA C, DECAVAC) 09/04/2001 Tdap 09/22/2010 influenza trivalent vaccine (6 months and older)(PF) 01/05/2008,01/12/2005,01/27/2004,1999,01/02/1999,01/02/1996 influenza vaccine quad (FLUZONE/FLUARIX) (6 months and older)(PF) 02/22/2016 Family History Medical History Relation Name Comments Tongue cancer Father Breast cancer (in one breast) Maternal Grandmother Breast cancer (in one breast) Mother's Sister 1 Cervical cancer Mother's Sister 2 Relation Name Status Comments Father Maternal Grandmother Mother's Sister 1 Mother's Sister 2 Social History Tobacco Use Types Packs/Day Years Used Date Smoking Tobacco: Never Passive Smoke Exposure: Never Smokeless Tobacco: Never Tobacco Cessation:Counseling Given: Not Answered Alcohol Use Standard Drinks/Week Comments Never 0 [...] things needed for daily living? No 11/17/2024 [facility] Utilities Answer Date Recorded In the past 12 months has e electric, gas, oil, or water company threatened to shut off services in your home? No 11/17/2024 Housing Stability Answer Date Recorded What is your living situation today? [facility] 11/17/2024 Comments No Sex and Gender Information Value Date Recorded Sex Assigned at Female 11/17/2024 12:38 PM CDT Legal Sex Female 12:31 PM CDT Gender Identity Female 11/17/2024 12:38 PM CDT Sexual Orientation Straight 11/17/2024 12 :38 PM CDT Last Filed Vital Signs Vital Sign Reading Time Taken Comments Blood Pressure 121/63 02/05/2025 10:29 AM CANE SPLICER Pulse 77 02/05/2025 10:29 AM CANE SPLICER Temperature 36.4 C (97.5 F) 02/05/2025 10:29 AM CANE SPLICER Respiratory Rate 16 01/22/2025 10:29 AM CANE SPLICER Oxygen Saturation 97% 01/08/2025 8:20 AM CDT Inhaled Oxygen Concentration - - Weight 98.9 kg (218 lb 2.3 oz) 02/05/2025 10:29 AM CANE SPLICER Height 164.3 cm (5' 4.69) 01/29/2025 9:23 AM CS T Body Mass Index 36.66 01/29/2025 9:23 AM CANE SPLICER Plan of Treatment Upcoming Encounters Date Type Department Care Team (Latest Contact Info) Description 02/12/2025 8:45 AM CANE SPLICER Lab Department of Oncology in [place], [place] [address] [place] [phone] Bradley Booker M.D. [address] [place] [phone] 02/12/2025 11:30 AM CANE SPLICER Infusion Department of Oncology in [place], [place] [address] [place] [phone] Bradley Booker M.D. [address] [place] [phone] 02/17/2025 9:15 AM CANE SPLICER Clinical Communication Virtual Review in [place], [place] [address] [place] [address] 02/18/2025 8:00 AM CANE SPLICER Lab Department of Oncology in [place], [place] [address] [place] [phone] Bradley Booker M.D. [address] [place] [phone] 02/18/2025 10:00 AM CANE SPLICER Office Visit Division of Hematology in [place], [place] [address] [place] [phone] Latrice Gomez M.D. [address] [place] [phone] 02/18/2025 10:30 AM CANE SPLICER Infusion Department of Oncology in [place], [place] [address] [place] [phone] Bradley Booker M.D. [address] [place] [phone] 02/26/2025 7:00 AM CANE SPLICER Lab Department of Oncology in [place], [place] [address] [place] [phone] Bradley Booker M.D. [address] [place] [phone] 02/26/2025 9:00 AM CANE SPLICER Infusion Department of Oncology in [place], [place] [address] [place] [address] Bradley Booker M.D. [address] [place] [phone] 03/05/2025 7:00 AM CANE SPLICER Lab Department of Oncology in [place], [place] [address] [place] [address] Bradley Booker M.D. [address] [place] [phone] 03/05/2025 9:00 AM CANE SPLICER Infusion Department of Oncology in [place], [place] [address] [place] [address] Bradley Booker M.D. [address] [place] [phone] 03/19/2025 10:30 AM CANE SPLICER Lab Department of Laboratory Medicine and Pathology, [facility], in [place], [place] [address] [place] [address] Bradley Booker M.D. [address] [place] [phone] 03/19/2025 2:00 PM CANE SPLICER Infusion Department of Oncology in [place], [place] [address] [place] [phone] Bradley Booker M.D. [address] [place] [phone] 03/23/2025 10:00 AM CANE SPLICER Telemedicine Division of Breast and Melanoma Surgical Oncology in [place], [place] [address] [place] [phone] Kell Craven APRN, C.N.P., D.N.P. [address] [place] [phone] 03/25/2025 3:20 PM CANE SPLICER Comprehensive Visit Department of Oncology in [address] [phone] Kilo Patel APRN, C.N.P., D.N.P. [address] [place] [phone] 04/08/2025 9:30 AM CANE SPLICER Clinical Communication Virtual Review in [place], [place] [address] [place] [address] 04/09/2025 8:00 AM CANE SPLICER Lab Department of Oncology in [address] [address] Bradley Booker M.D. [address] [place] [phone] 04/09/2025 10:00 AM CANE SPLICER Office Visit Department of Oncology in [address] [phone] Bradley Booker M.D. [address] [place] [phone] 04/09/2025 11:00 AM CANE SPLICER Infusion Department of Oncology in [address] [phone] Bradley Booker M.D. [address] [place] [phone] Health Maintenance Due Date Last Done Comments Cervical/Vaginal Cancer Screening 1987 HIV Screening 1987 Hepatitis C Screening 1987 Lipid (Cholesterol) Screening 1987 COVID-19 Vaccine (#1) 06/22/1992 Hepatitis B Vaccines (1 of 3 - 19+ 3-dose series) 06/22/2006 HPV Vaccines (1 - 3-dose SCDM series) 06/22/2014 DTaP,Tdap,and Td Vaccines (3 - Td or Tdap) 09/22/2020 09/22/2010, 09/04/2001 Depression Screening (Annual PHQ-2) 03/18/2024 Influenza Vaccine (#1) 2024 6, 01/14/2012, 02/07/2011, Additional history exists Glucose Test for Med Monitoring 01/29/2026 01/29/2025, 01/08/2025, 12/28/2024, Additional history exists IPV Vaccines Aged Out No longer eligi ble based on patient's age to complete this topic Pneumococcal vaccine (0-49 years) Aged Out No longer eligible based on patient's age to complete this topic Medical Devices Implanted Type Area Die Maker Apprentice Device Identifier Shelf Expiration Date Model / Serial / Lot Imaging Marker- [id number] Implanted: (Quantity not on file) Imaging Marker Left: Axilla Procedures Procedure Name Priority Date/Time Associated Diagnosis Comments CREATININE WITH EGFR, S/P Routine 02/05/2025 8:52 AM CANE SPLICER 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) CBC CHEMO - NO ALERTS Routine 02/05/2025 8:52 AM CANE SPLICER 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) THYROID FUNCTION CASCADE, S Routine 01/29/2025 8:06 AM CANE SPLICER 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) COMPREHENSIVE METABOLIC PANEL, S/P Routine 01/29/2025 8:06 AM CANE SPLICER 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) CBC WITH DIFFERENTIAL, B Routine 01/29/2025 8:06 AM CANE SPLICER 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) CREATININE WITH EGFR, S/P Routine 01/22/2025 8:31 AM CANE SPLICER 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) CBC CHEMO - NO ALERTS Routine 01/22/2025 8:31 AM CANE SPLICER 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) CREATININE WITH EGFR, S/P Routine 01/15/2025 7:23 AM CDT 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) CBC CHEMO - NO ALERTS Routine 01/15/2025 7:23 AM CDT 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) THYROID FUNCTION CASCADE, S Routine 01/08/2025 7:03 [...] 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 (HCC) CBC CHEMO - NO ALERTS Routine 12/25/2024 9:24 AM CDT 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) CREATININE WITH EGFR, S/P Routine 12/18/2024 9:13 AM CDT 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) CBC CHEMO - NO ALERTS Routine 12/18/2024 9:13 AM CDT 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) HUMAN CHORIONIC GONADOTROPIN (HCG), JANAE, Routine 12/11/2024 9:50 AM CDT 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) THYROID FUNCTION CASCADE, S Routine 12/11/2024 9:50 AM CDT 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) COMPREHENSIVE METABOLIC PANEL, S/P Routine 12/11/2024 9:50 AM CDT 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) CBC WITH DIFFERENTIAL, B Routine 12/11/2024 9:50 AM CDT 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) BI BREAST BIOPSY LEFT WITH ULTRASOUND GUIDANCE RAD - Routine (most inpatients and all outpatients) 12/03/2024 9:18 AM CDT Breast Examination Abnormal DERMATOPATHOLOGY Routine 11/25/2024 3:26 PM CDT BI ULTRASOUND BREAST FOCUSED LEFT RAD - Routine (most inpatients and all outpatients) 11/25/2024 10:30 AM CDT Breast Examination Abnormal BI BREAST DIAGNOSTIC BILATERAL WITH TOMOSYNTHESIS RAD - Routine (most inpatients and all outpatients) 11/25/2024 9:25 AM CDT Breast Examination Abnormal DERMATOLOGY IMAGE EXAM Routine 12:00 AM CDT MR BREAST BILATERAL WITHOUT AND WITH IV CONTRAST RAD - Routine (most inpatients and all outpatients) 11/24/2024 10:20 AM CDT 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) (TTE) 2D ECHO DOPPLER COLOR Routine 11/20/2024 1:50 PM CDT 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) COMPREHENSIVE METABOLIC PANEL, S/P Routine 11/20/2024 12:25 PM CDT 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) CBC WITH DIFFERENTIAL, B Routine 11/20/2024 12:25 PM CDT 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) INTERNAL MEDICINE IMAGE EXAM Routine 11/20/2024 10:52 AM CDT INTERPRETATION OF OUTSIDE BREAST IMAGING RAD - Routine (most inpatients and all outpatients) 11/10/2024 3:49 PM CDT 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) INTERPRETATION OF OUTSIDE NM PET SCAN RAD - Routine (most inpatients and all outpatients) 11/10/2024 1:23 PM CDT 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 Hemoglobin 11.5(L) 11.6 - 15.0 g/dL 02/05/2025 9:02 AM CANE SPLICER METH Platelet Count 166 157 - 371 x10(9)/L 02/05/2025 9:02 AM CANE SPLICER METH Leukocytes 5.0 3.4 - 9.6 x10(9)/L 02/05/2025 9:02 AM CANE SPLICER METH Neutrophils 2.68 1.56 - 6.45 x10(9)/L 02/05/2025 9:02 AM CANE SPLICER [facility] Blood (Blood, Venous) 02/05/2025 8:52 AM CANE SPLICER 02/05/2025 8:58 AM CANE SPLICER Bradley Booker M.D. LAB BLOOD ADD-ON Final Result [facility] [address] [place] [address], [facility] METH [facility] [address] [place] [address] DHPM [facility] [address] [place] [address] * Creatinine with Estimated GFR (02/05/2025 8:52 AM CANE SPLICER) Only the most recent of5 resultswithin the time period is included. Pathologist [facility] Creatinine 0.67 0.59 - 1.04 mg/dL 02/05/2025 9:49 AM CANE SPLICER DTL Estimated GFR (eGFR) >90 >=60 mL/min/BSA 02/05/2025 9:49 AM CANE SPLICER DTL Comment: Estimated GFR calculated using the 2020 CKD_EPI creatinine equation. Blood (Blood, Venous) 02/05/2025 8:52 AM CANE SPLICER 02/05/2025 9:01 AM CANE SPLICER us Bradley Booker M.D. LAB BLOOD ADD-ON Final Result Performing Organization Address [facility] de Phone Number [facility] [address] [place] [address] * Thyroid Function [place] (01/29/2025 8:06 AM CANE SPLICER) Only the most recent of3 resultswithin the time period is included. Pathologist [facility] TSH, Sensitive 0.9 0.3 - 4.2 mIU/L 01/29/2025 10:57 AM CANE SPLICER DTL Blood (Blood, Venous) 01/29/2025 8:06 AM CANE SPLICER 01/29/2025 8:30 AM CANE SPLICER us Bradley Booker M.D. LAB BLOOD ADD-ON Final Result Performing Organization Address [facility] de Phone Number [facility] [address] [place] [address] * (ABNORMAL) CBC with Differential, Blood (01/29/2025 8:06 AM CANE SPLICER) Only the most recent of4 resultswithin the time period is included. Hemoglobin 11.5(L) 11.6 - 15.0 g/dL 01/29/2025 8:50 AM CANE SPLICER DTL Hematocrit 35.4(L) 35.5 - 44.9 % 01/29/2025 8:50 AM CANE SPLICER DTL Erythrocytes 4.01 3.92 - 5.13 x10(12)/L 01/29/2025 8:50 AM CANE SPLICER DTL MCV 88.3 78.2 - 97.9 fL 01/29/2025 8:50 AM CANE SPLICER DTL RBC Distrib Width 14.6 12.2 - 16.1 % 01/29/2025 8:50 AM CANE SPLICER DTL Platelet Count 385(H) 157 - 371 x10(9)/L 01/29/2025 8:50 AM CANE SPLICER DTL Leukocytes 4.3 3.4 - 9.6 x10(9)/L 01/29/2025 8:50 AM CANE SPLICER DTL Neutrophils 2.40 1.56 - 6.45 x10(9)/L 01/29/2025 8:50 AM CANE SPLICER DHPM Lymphocytes 1.23 0.95 - 3.07 x10(9)/L 01/29/2025 8:50 AM CANE SPLICER DTL Monocytes 0.31 0.26 - 0.81 x10(9)/L 01/29/2025 8:50 AM CANE SPLICER DTL Eosinophils 0.26 0.03 - 0.48 x10(9)/L 01/29/2025 8:50 AM CANE SPLICER DTL Basophils 0.07 0.01 - 0.08 x10(9)/L 01/29/2025 8:50 AM CANE SPLICER DTL Blood (Blood, Venous) 01/29/2025 8:06 AM CANE SPLICER 01/29/2025 8:35 AM CANE SPLICER Bradley Booker M.D. LAB BLOOD ADD-ON Final Result [facility] [address] [place] [address], [facility] DTL [facility] [address] [place], [place] [id number] [place] [address] [place] [address] * Comprehensive Metabolic Panel (01/29/2025 8:06 AM CANE SPLICER) Only the most recent of4 resultswithin the time period is included. Potassium, S 4.5 3.6 - 5.2 mmol/L 01/29/2025 9:34 AM CANE SPLICER DTL Sodium, S 139 135 - 145 mmol/L 01/29/2025 9:34 AM CANE SPLICER DTL Chloride, S 105 98 - 107 mmol/L 01/29/2025 9:34 AM CANE SPLICER DTL Bicarbonate, S 25 22 - 29 mmol/L 01/29/2025 9:34 AM CANE SPLICER DTL Anion Gap 9 7 - 15 01/29/2025 9:34 AM CANE SPLICER DTL BUN (Blood Urea Nitrogen), S 19 6 - 21 mg/dL 01/29/2025 9:34 AM CANE SPLICER DTL Creatinine 0.77 0.59 - 1.04 mg/dL 01/29/2025 9:34 AM CANE SPLICER DTL Estimated GFR (eGFR) >90 >=60 mL/min/BS A 01/29/2025 9:34 AM CANE SPLICER DTL Comment: Estimated GFR calculated using the 2020 CKD_EPI creatinine equation. Calcium, Total, S 9.2 8.6 - 10.0 mg/dL 01/29/2025 9:34 AM CANE SPLICER DTL Glucose, S 101 70 - 140 mg/dL 01/29/2025 9:34 AM CANE SPLICER DTL Protein, Total, S 6.4 6.3 - 7.9 g/dL 01/29/2025 9:34 AM CANE SPLICER DTL Albumin, S 4.2 3.5 - 5.0 g/dL 01/29/2025 9:34 AM CANE SPLICER DTL Aspartate Aminotransferase (AST), S 21 8 - 43 U/L 01/29/2025 9:34 AM CANE SPLICER DTL Alkaline Phosphatase, S 89 35 - 104 U/L 01/29/2025 9:34 AM CANE SPLICER DTL Alanine Aminotransferase (ALT), S 25 7 - 45 U/L 01/29/2025 9:34 AM CANE SPLICER DTL Bilirubin, Total, S <0.2 0.0 - 1.2 mg/dL 01/29/2025 9:34 AM CANE SPLICER DTL Blood (Blood, Venous) 01/29/2025 8:06 AM CANE SPLICER 01/29/2025 8:30 AM CANE SPLICER us Bradley Booker M.D. LAB BLOOD ADD-ON Final Result [facility] [place] [address] [place], [place] [address] [address] [place] [address] * hCG (Human Chorionic Gonadotropin), Quantitative, (12/11/2024 9:50 AM CDT) HCG, Quantitative, , S <0.5 <5 IU/L 12/11/2024 11:04 AM CDT DTL Blood (Blood, Venous) 12/11/2024 9:50 AM CDT 12/11/2024 10:14 AM CDT Bradley Booker M.D. LAB BLOOD ADD-ON Final Result [facility] [address] [place], [place] [address] [address] [place] [address] * (ABNORMAL) BI Breast Biopsy Left with Ultrasound Guidance (12/03/2024 9:18 AM CDT) Anatomical Region Laterality Modality Breast, Breast Imaging RST L OS, Breast Imaging ARZ LOS, Breast Imaging FLA LOS Left Ultrasound Impressions 12/03/2024 12:02 PM CDT FINDINGS/ IMPRESSION: Small left breast mass at 6 o'clock 4 cm from the nipple was no longer clearly visualized on today's exam given the interval increase in subcutaneous and breast edema in this region deeper within her breast when compared to prior ultrasound 11/25/2024. Butadiene Convertor Operator images were obtained. This was discussed with ordering clinician Dr Chan. RECOMMENDATION: Clinical Management Limited exam performed at no charge to the patient. ASSESSMENT: BI-RADS: 6: Known Biopsy-Proven Malignancy. EP Narrative 12/03/2024 12:02 PM CDT EXAM: BI BREAST BIOPSY LEFT WITH ULTRASOUND GUIDANCE Exam was cancelled. Limited images obtained at no charge to the patient. INDICATION: Patient with left breast malignancy, concern for inflammatory carcinoma with pending dermatology biopsy, upcoming surgical plans for left breast mastectomy, request for biopsy of small mass at 6 o'clock 4 cm from the nipple Procedure Note Chetna Auguste M.D. - 12/03/2024 EXAM: BI BREAST BIOPSY LEFT WITH ULTRASOUND GUIDANCE Exam was cancelled. Limited images obtained at no charge to the patient. INDICATION: Patient with left breast malignancy, concern for inflammatorycarcinoma with pending dermatology biopsy, upcoming surgical plans forleft breast mastectomy, request for biopsy of small mass at 6 o'clock 4 cmfrom the nipple IMPRESSION: FINDINGS/ IMPRESSION: Small left breast mass at 6 o'clock 4 cm from thenipple was no longer clearly visualized on today's exam given the intervalincrease in subcutaneous and breast edema in this region deeper within herbreast when compared to prior ultrasound 11/25/2024. Butadiene Convertor Operator imageswere obtained. This was discussed with ordering clinician Dr Chan. RECOMMENDATION: Clinical Management Limited exam performed at no charge to the patient. ASSESSMENT: BI-RADS: 6: Known Biopsy-Proven Malignancy. EP us Jacinto Chan M.D. IMG BI PROCEDURES Final Res ult * Dermatopathology (11/25/2024 3:26 PM CDT) 12/07/2024 11:09 AM CDT PDRM Report electronically signed by [place] M.D. Seen in consultation with: Paras Goyal M.D. 12/07/2024 11:09 AM CDT PDRM Gross Description A: Received in formalin labeled with the patient's name, medical record number, and breast, left upper inner quadrant breast, A is a 0.7 x0.6 cm pale-rudd, ovoid previously inked blue skin punch biopsy excised to a depth of 0.4 cm. No discrete lesion is grossly identified on theskin surface. Specimen is bisected and submitted entirely in cassette A1. Due to the clinical indication, the specimen is held for the sixhour fixation requirement to meet HER2 testing guidelines. Grossed by ERG. B: Received in formalin labeled with the patient's name, medical record number, and breast, left upper inner quadrant breast, B is a 0.6cm in diameter pale-rudd, previously inked blue skin punch biopsy excised to a depth of 0.5 cm. No discrete lesion is grossly identified onthe skin surface. Specimen is bisected and submitted entirely in cassette B1. Due to the clinical indication, the specimen is held for thesix hour fixation requirement to meet HER2 testing guidelines. Grossed by ERG. 12/07/2024 11:09 AM CDT PDRM Interpretation FINAL DIAGNOSIS A. Left Upper Inner Quadrant Breast, A., Skin punch biopsy: Dermal edema with perivascular lymphohistiocytic inflammation including eosinophils B. Left Upper Inner Quadrant Breast, B., Skin punch biopsy: Metastatic breast carcinoma with lymphovascular invasion COMMENT Clinical note and photos reviewed. KRT 7 stains performed on blocks A&B is negative for neoplasm in A and highlights metastatic carcinoma in B. The histologic findings are consistent with metastatic carcinoma with lymphovascular invasion, breast primary. Clinical correlation is advised. Digital imaging was used in the diagnostic assessment of this case. 12/07/2024 11:09 AM CDT PDRM Skin (Left Upper Inner Quadrant Breast) 11/25/2024 3:26 PM CDT Skin (Left Upper Inner Quadrant Breast) 11/25/2024 3:30 PM CDT us Mitch Michele M.D. LAB PATH DERM ORDERABLES F inal Result [facility] [address] [place] [address], [facility] [address] [facility] [address] [place] [address] * (ABNORMAL) BI Ultrasound Breast Focused Left (11/25/2024 10:30 AM CDT) Anatomical Region Laterality Modality Breast, Breast Imaging RST L OS, Breast Imaging ARZ LOS, Breast Imaging FLA LOS Left Ultrasound Impressions 11/25/2024 11:53 AM CDT 1. Irregular hypoechoic mass in the left breast at 6 o'clock 4 cm from the nipple may correlate with the focal enhancement noted in the left inferior breast on recent MRI (axial image 95). 2. Postsurgical changes in the left breast with vague hypoechoic areas in the left inferior outer and left upper outer breast in the areas of non-mass enhancement, without discrete sonographic target. 3. Biopsy-proven left axillary malignancy with associated HydroMark tight coil clip in the outer edge of the lymph node cortex, well visualized sonographically. RECOMMENDATION: Biopsy 1. Recommend ultrasound-guided biopsy of the left breast mass at 6 o'clock 4 cm from the nipple if it would change clinical management. 2. Continued multidisciplinary management of patient's left breast malignancy, with concern for inflammatory carcinoma. Findings, impressions and recommendations discussed with the patient following imaging. All questions answered. ASSESSMENT: BI-RADS: 4: Suspicious. Narrative 11/25/2024 11:53 AM CDT EXAM: BI BREAST DIAGNOSTIC BILATERAL WITH TOMOSYNTHESIS, BI ULTRASOUND BREAST FOCUSED LEFT INDICATION: [facility] and MR directed imaging. 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 Left axillary elian metastasis diagnosed on core needle biopsy 11/05/2024. The patient is lactating. COMPARISON: Prior exam(s) were available and reviewed for comparison. DENSITY: d. The breast(s) are extremely dense, which lowers the sensitivity of mammography. FINDINGS: Diagnostic full field tomosynthesis performed as part of this evaluation. Marked bilateral breast density partly due to lactational status. Postsurgical changes in the left breast with architectural distortion predominantly in the medial breast. Prominent diffuse left breast skin thickening and edema, similar to findings noted on the 11/24/2024 MRI, and concerning for possible inflammatory carcinoma. Enlarged left axillary node with associated HydroMark tight coil biopsy clip. Port catheter in the right upper medial breast/chest. Targeted ultrasound was performed for further evaluation demonstrating the enlarged biopsy proven left axillary lymph node with associated HydroMark coil clip. The HydroMark clip is well visualized sonographically and is positioned along the outer edge of the lymph node cortex. In the left inferior breast at 6 o'clock 4 cm from the nipple is an irregular hypoechoic mass measuring 9 x 5 x 8 mm, likely correlating with the focal enhancement noted in the left inferior breast (axial image 95). Additional evaluation of the left upper outer breast and the left inferior outer breast in the areas of non-mass enhancement noted on the MRI demonstrate vague hypoechoic areas, likely representing a combination of postsurgical changes, edema, and possible residual malignancy. No discrete sonographic target identified in these areas for biopsy. Diffuse skin thickening and subcutaneous edema throughout the left breast. Procedure Note Kassidy Bustillos M.D. - 11/25/2024 EXAM: BI BREAST DIAGNOSTIC BILATERAL WITH TOMOSYNTHESIS, BI ULTRASOUNDBREAST FOCUSED LEFT INDICATION: [facility] and MR directed imaging. 39-year-old patient with leftbreast invasive ductal carcinoma grade 3 and DCIS diagnosed on excisionalbiopsy 10/26/2024 with positive margins. Left axillary elian metastasisdiagnosed on core needle biopsy 11/05/2024. The patient is lactating. COMPARISON: Prior exam(s) were available and reviewed for comparison. DENSITY: d. The breast(s) are extremely dense, which lowers thesensitivity of mammography. FINDINGS: Diagnostic full field tomosynthesis performed as part of this evaluation.Marked bilateral breast density partly due to lactational status.Postsurgical changes in the left breast with architectural distortionpredominantly in the medial breast. Prominent diffuse left breast skinthickening and edema, similar to findings noted on the 11/24/2024 MRI, andconcerning for possible inflammatory carcinoma. Enlarged left axillarynode with associated HydroMark tight coil biopsy clip. Port catheter inthe right upper medial breast/chest. Targeted ultrasound was performed for further evaluation demonstrating theenlarged biopsy proven left axillary lymph node with associated HydroMarkcoil clip. The HydroMark clip is well visualized sonographically and ispositioned along the outer edge of the lymph node cortex. In the leftinferior breast at 6 o'clock 4 cm from the nipple is an irregularhypoechoic mass measuring 9 x 5 x 8 mm, likely correlating with the focalenhancement noted in the left inferior breast (axial image 95). Additionalevaluation of the left upper outer breast and the left inferior outerbreast in the areas of non-mass enhancement noted on the MRI demonstratevague hypoechoic areas, likely representing a combination of postsurgicalchanges, edema, and possible residual malignancy. No discrete sonographictarget identified in these areas for biopsy. Diffuse skin thickening andsubcutaneous edema throughout the left breast. IMPRESSION: 1. Irregular hypoechoic mass in the left breast at 6 o'clock 4 cm fromthe nipple may correlate with the focal enhancement noted in the leftinferior breast on recent MRI (axial image 95). 2. Postsurgical changes in the left breast with vague hypoechoic areas inthe left inferior outer and left upper outer breast in the areas ofnon-mass enhancement, without discrete sonographic target. 3. Biopsy-proven left axillary malignancy with associated HydroMark tightcoil clip in the outer edge of the lymph node cortex, well visualizedsonographically. RECOMMENDATION: Biopsy 1. Recommend ultrasound-guided biopsy of the left breast mass at 6o'clock 4 cm from the nipple if it would change clinical management. 2. Continued multidisciplinary management of patient's left breastmalignancy, with concern for inflammatory carcinoma. Findings, impressions and recommendations discussed with the patientfollowing imaging. All questions answered. ASSESSMENT: BI-RADS: 4: Suspicious. us Jacinto Chan M.D. IMJoshua BI PROCEDURES Final Res ult * (ABNORMAL) BI Breast Diagnostic Bilateral with Tomosynthesis (11/25/2024 9:25 AM CDT) Anatomical Region Laterality Modality Breast, Breast Imaging RST L OS, Breast Imaging ARZ LOS, Breast Imaging FLA LOS Bilateral Mammography Impressions 11/25/2024 11:53 AM CDT 1. Irregular hypoechoic mass in the left breast at 6 o'clock 4 cm from the nipple may correlate with the focal enhancement noted in the left inferior breast on recent MRI (axial image 95). 2. Postsurgical changes in the left breast with vague hypoechoic areas in the left inferior outer and left upper outer breast in the areas of non-mass enhancement, without discrete sonographic target. 3. Biopsy-proven left axillary malignancy with associated HydroMark tight coil clip in the outer edge of the lymph node cortex, well visualized sonographically. RECOMMENDATION: Biopsy 1. Recommend ultrasound-guided biopsy of the left breast mass at 6 o'clock 4 cm from the nipple if it would change clinical management. 2. Continued multidisciplinary management of patient's left breast malignancy, with concern for inflammatory carcinoma. Findings, impressions and recommendations discussed with the patient following imaging. All questions answered. ASSESSMENT: BI-RADS: 4: Suspicious. Narrative 11/25/2024 11:53 AM CDT EXAM: BI BREAST DIAGNOSTIC BILATERAL WITH TOMOSYNTHESIS, BI ULTRASOUND BREAST FOCUSED LEFT INDICATION: [facility] and MR directed imaging. 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 Left axillary elian metastasis diagnosed on core needle biopsy 11/05/2024. The patient is lactating. COMPARISON: Prior exam(s) were available and reviewed for comparison. DENSITY: d. The breast(s) are extremely dense, which lowers the sensitivity of mammography. FINDINGS: Diagnostic full field tomosynthesis performed as part of this evaluation. Marked bilateral breast density partly due to lactational status. Postsurgical changes in the left breast with architectural distortion predominantly in the medial breast. Prominent diffuse left breast skin thickening and edema, similar to findings noted on the 11/24/2024 MRI, and concerning for possible inflammatory carcinoma. Enlarged left axillary node with associated HydroMark tight coil biopsy clip. Port catheter in the right upper medial breast/chest. Targeted ultrasound was performed for further evaluation demonstrating the enlarged biopsy proven left axillary lymph node with associated HydroMark coil clip. The HydroMark clip is well visualized sonographically and is positioned along the outer edge of the lymph node cortex. In the left inferior breast at 6 o'clock 4 cm from the nipple is an irregular hypoechoic mass measuring 9 x 5 x 8 mm, likely correlating with the focal enhancement noted in the left inferior breast (axial image 95). Additional evaluation of the left upper outer breast and the left inferior outer breast in the areas of non-mass enhancement noted on the MRI demonstrate vague hypoechoic areas, likely representing a combination of postsurgical changes, edema, and possible residual malignancy. No discrete sonographic target identified in these areas for biopsy. Diffuse skin thickening and subcutaneous edema throughout the left breast. Procedure Note Kassidy Bustillos M.D. - 11/25/2024 EXAM: BI BREAST DIAGNOSTIC BILATERAL WITH TOMOSYNTHESIS, BI ULTRASOUNDBREAST FOCUSED LEFT INDICATION: [facility] and MR directed imaging. 39-year-old patient with leftbreast invasive ductal carcinoma grade 3 and DCIS diagnosed on excisionalbiopsy 10/26/2024 with positive margins. Left axillary elian metastasisdiagnosed on core needle biopsy 11/05/2024. The patient is lactating. COMPARISON: Prior exam(s) were available and reviewed for comparison. DENSITY: d. The breast(s) are extremely dense, which lowers thesensitivity of mammography. FINDINGS: Diagnostic full field tomosynthesis performed as part of this evaluation.Marked bilateral breast density partly due to lactational status.Postsurgical changes in the left breast with architectural distortionpredominantly in the medial breast. Prominent diffuse left breast skinthickening and edema, similar to findings noted on the 11/24/2024 MRI, andconcerning for possible inflammatory carcinoma. Enlarged left axillarynode with associated HydroMark tight coil biopsy clip. Port catheter inthe right upper medial breast/chest. Targeted ultrasound was performed for further evaluation demonstrating theenlarged biopsy proven left axillary lymph node with associated HydroMarkcoil clip. The HydroMark clip is well visualized sonographically and ispositioned along the outer edge of the lymph node cortex. In the leftinferior breast at 6 o'clock 4 cm from the nipple is an irregularhypoechoic mass measuring 9 x 5 x 8 mm, likely correlating with the focalenhancement noted in the left inferior breast (axial image 95). Additionalevaluation of the left upper outer breast and the left inferior outerbreast in the areas of non-mass enhancement noted on the MRI demonstratevague hypoechoic areas, likely representing a combination of postsurgicalchanges, edema, and possible residual malignancy. No discrete sonographictarget identified in these areas for biopsy. Diffuse skin thickening andsubcutaneous edema throughout the left breast. IMPRESSION: 1. Irregular hypoechoic mass in the left breast at 6 o'clock 4 cm fromthe nipple may correlate with the focal enhancement noted in the leftinferior breast on recent MRI (axial image 95). 2. Postsurgical changes in the left breast with vague hypoechoic areas inthe left inferior outer and left upper outer breast in the areas ofnon-mass enhancement, without discrete sonographic target. 3. Biopsy-proven left axillary malignancy with associated HydroMark tightcoil clip in the outer edge of the lymph node cortex, well visualizedsonographically. RECOMMENDATION: Biopsy 1. Recommend ultrasound-guided biopsy of the left breast mass at 6o'clock 4 cm from the nipple if it would change clinical management. 2. Continued multidisciplinary management of patient's left breastmalignancy, with concern for inflammatory carcinoma. Findings, impressions and recommendations discussed with the patientfollowing imaging. All questions answered. ASSESSMENT: BI-RADS: 4: Suspicious. us Jacinto Chan M.D. IMG BI PROCEDURES Final Res ult * breast, left upper medial 211 Punch biopsy-Dermatology Image Exam (11/25/2024 12:00 AM CDT) Narrative [facility] - 11/25/2024 3:40 PM CDT This order has been created and auto-finalized to support the import of images acquired without order. The clinical documentation to support these images can be found on the encounter that produced images. us Provider Not In System IMG NON RAD IMAGING PROCE DURES Final Result [facility] NA * (ABNORMAL) MR Breast Bilateral without and with IV Contrast (11/24/2024 10:20 AM CDT) Anatomical Region Laterality Modality Breast, Breast Imaging RST L OS, Breast Imaging ARZ LOS, Breast Imaging FLA LOS Bilateral Magnetic Resonance Impressions 11/24/2024 1:14 PM CDT 1. Evaluation is limited by marked background parenchymal enhancement. Post excisional biopsy changes within the left breast with residual mass and non-mass enhancement extending into all 4 quadrants over approximately 10 cm in maximal dimension, highly suggestive of residual malignancy. Skin thickening and enhancement of the medial and periareolar left breast is concerning for inflammatory carcinoma. 2. Biopsy-proven metastatic left axillary adenopathy with multiple abnormal level 1, 2, and 3 lymph nodes. 3. No MR findings of malignancy in the right breast, although evaluation is limited by marked background parenchymal enhancement. RECOMMENDATION: Clinical Management Recommend multidisciplinary management of the patient's left breast cancer. If breast conservation therapy is a consideration, 2nd look ultrasound could be performed to assess for a biopsy target in the upper outer left breast adjacent to the excisional biopsy cavity (example axial postcontrast image 54) and in the inferior left breast (axial postcontrast image 24). ASSESSMENT: BI-RADS: 6: Known Biopsy-Proven Malignancy. 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 Left axillary elian metastasis diagnosed on core needle biopsy 11/05/2024. The patient is lactating. HORMONAL STATUS: LMP 10/27/2024 COMPARISON: Prior exam(s) were available and reviewed for comparison. TECHNIQUE: Dynamic enhanced protocol using IV contrast administration with T1 and T2- weighted images and CAD image analysis. FIBROGLANDULAR TISSUE: d. Extreme fibroglandular tissue. BACKGROUND PARENCHYMAL ENHANCEMENT: d. Marked FINDINGS: RIGHT BREAST: No MRI findings of malignancy in the right breast. There is marked diffuse homogeneous enhancement throughout the right breast compatible lactational changes. No suspicious areas of enhancement although sensitivity is decreased due to the degree of background enhancement. Port-A-Cath right upper inner breast. RIGHT AXILLA: No right axillary lymphadenopathy. LEFT BREAST: Evaluation is limited by marked background parenchymal enhancement and lactational changes. Circumscribed fluid collection within the left inner upper breast anterior to middle depth measuring 4.7 x 3.2 x 3.5 cm, consistent with postoperative seroma at the site of previous excisional biopsy. Extending lateral and inferior from the excisional biopsy site there is mass and non-mass enhancement involving all 4 quadrants of the breast over 8.1 x 10.3 x 7.5 cm (AP x SI x transverse), highly suggestive of residual malignancy. Enhancement extends to the subareolar left breast. There is skin thickening and enhancement of the periareolar and medial left breast, concerning for inflammatory carcinoma. No evidence of chest wall involvement; enhancement is a approximately 4.3 cm from the pectoralis major muscle. LEFT AXILLA: There are at least 10 abnormal left level 1 axillary lymph nodes. The largest level 1 lymph node measures 2.3 x 2.1 cm (axial postcontrast image 40) and contains artifact from a biopsy clip. There is a matted conglomerate of left level 2 lymph nodes measuring 3.7 x 1.5 cm (axial postcontrast image 22), and 2-3 abnormal level 3 lymph nodes. CHEST WALL: No internal mammary lymphadenopathy. Procedure Note Chetna Vargas M.D. 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 Left axillary elian metastasis diagnosed on core needle biopsy11/05/2024. The patient is lactating. HORMONAL STATUS: LMP 10/27/2024 COMPARISON: Prior exam(s) were available and reviewed for comparison. TECHNIQUE: Dynamic enhanced protocol using IV contrast administrationwith T1 and T2-weighted images and CAD image analysis. FIBROGLANDULAR TISSUE: d. Extreme fibroglandular tissue. BACKGROUND PARENCHYMAL ENHANCEMENT: d. Marked FINDINGS: RIGHT BREAST: No MRI findings of malignancy in the right breast. There ismarked diffuse homogeneous enhancement throughout the right breastcompatible lactational changes. No suspicious areas of enhancementalthough sensitivity is decreased due to the degree of backgroundenhancement. Port-A-Cath right upper inner breast. RIGHT AXILLA: No right axillary lymphadenopathy. LEFT BREAST: Evaluation is limited by marked background parenchymalenhancement and lactational changes. Circumscribed fluid collection withinthe left inner upper breast anterior to middle depth measuring 4.7 x 3.2 x3.5 cm, consistent with postoperative seroma at the site of previousexcisional biopsy. Extending lateral and inferior from the excisionalbiopsy site there is mass and non-mass enhancement involving all 4quadrants of the breast over 8.1 x 10.3 x 7.5 cm (AP x SI x transverse),highly suggestive of residual malignancy. Enhancement extends to thesubareolar left breast. There is skin thickening and enhancement of theperiareolar and medial left breast, concerning for inflammatory carcinoma.No evidence of chest wall involvement; enhancement is a approximately 4.3cm from the pectoralis major muscle. LEFT AXILLA: There are at least 10 abnormal left level 1 axillary lymphnodes. The largest level 1 lymph node measures 2.3 x 2.1 cm (axialpostcontrast image 40) and contains artifact from a biopsy clip. There cristobal matted conglomerate of left level 2 lymph nodes measuring 3.7 x 1.5 cm(axial postcontrast image 22), and 2-3 abnormal level 3 lymph nodes. CHEST WALL: No internal mammary lymphadenopathy. IMPRESSION: 1. Evaluation is limited by marked background parenchymal enhancement.Post excisional biopsy changes within the left breast with residual massand non-mass enhancement extending into all 4 quadrants over [id number] cm in maximal dimension, highly suggestive of residual malignancy. Skinthickening and enhancement of the medial and periareolar left breast isconcerning for inflammatory carcinoma. 2. Biopsy-proven metastatic left axillary adenopathy with multipleabnormal level 1, 2, and 3 lymph nodes. 3. No MR findings of malignancy in the right breast, although evaluationis limited by marked background parenchymal enhancement. RECOMMENDATION: Clinical Management Recommend multidisciplinary management of the patient's left breastcancer. If breast conservation therapy is a consideration, 2nd lookultrasound could be performed to assess for a biopsy target in the upperouter left breast adjacent to the excisional biopsy cavity (example axialpostcontrast image 54) and in the inferior left breast (axial postcontrastimage 24). ASSESSMENT: BI-RADS: 6: Known Biopsy-Proven Malignancy. us Jacinto Chan M.D. IMG MRI PROCEDURES Final Re sult * (TTE) 2D ECHO DOPPLER COLOR (11/20/2024 1:50 PM CDT) Ejection Fraction 60 MC CV EIMS Mid-Ascending Aorta 26 MC CV EIMS LV Mass Index 49 MC CV EIMS LV End-Diastolic Diameter 47 MC CV EIMS LV End-Systolic Diameter 32 MC CV EIMS LV End-Diastolic Volume 111 MC CV EIMS LV End-Systolic Volume 44 MC CV EIMS MV E Velocity 0.8 MC CV EIMS MV A Velocity 0.6 MC CV EIMS MV E/A 1.33 MC CV EIMS MV e' Velocity Medial 0.13 MC CV EIMS MV e' Velocity Lateral 0.15 MC CV EIMS MV E/e' Medial 6.2 MC CV EIMS MV E/e' Lateral 5.3 MC CV EIMS Left ventricular stroke volume index 39 MC CV EIMS Cardiac Output 4.93 MC CV EIMS Cardiac Index 2.37 MC CV EIMS LV Global Longitudinal Strain -23 MC CV EIMS LV Interventricular Septal Wall Thickness 7 MC CV EIMS LV Posterior Wall Thickness 7 MC CV EIMS LV Relative Wall Thickness 30 MC CV EIMS TAPSE 26 MC CV EIMS Tricuspid Annular S 0.15 MC CV EIMS TR Vmax 2.42 MC CV EIMS Estimated RA Pressure (Echo RAP) 5 MC CV EIMS RV Systolic Pressure (with Echo RAP) 28 MC CV EIMS AV mean gradient 6 MC CV EIMS Aortic valve area 2.34 MC CV EIMS Aortic Valve Dimensionless Index 0.62 MC CV EIMS LA Volume Index 30 MC CV EIMS Aortic Valve Systolic Peak Velocity 1.7 MC CV EIMS Anatomical Region Laterality Modality Echocardiography 11/20/2024 1:08 PM CDT Impressions 11/20/2024 4:18 PM CDT LEFT VENTRICLE:Normal left ventricular chamber size. Normal left ventricular geometry. Calculated 2-D biplane volumetric left ventricular ejection fraction of 60%. Strain imaging examination performed to assess left ventricular function. Global averaged left ventricular longitudinal peak systolic strain is normal at -23% (normal = more negative than -18%). No regional wall motion abnormalities. Normal left ventricular diastolic function. RIGHT VENTRICLE:Normal right ventricular chamber size. Normal right ventricular systolic function. Estimated right ventricular systolic pressure 28 mmHg (systolic blood pressure 112 mmHg). ATRIA:Normal left atrial size. Left atrial volume index 30 ml/m2. Normal right atrial size. CARDIAC VALVES:Trileaflet aortic valve. Normal aortic valve. No aortic valve regurgitation. Normal mitral valve. Trivial mitral valve regurgitation. Normal pulmonary valve. Normal pulmonary valve systolic velocities. Trivial pulmonary valve regurgitation. Normal tricuspid valve. Trivial tricuspid valve regurgitation. OTHER ECHO FINDINGS:Normal inferior vena cava size with normal inspiratory collapse (>50%). Normal mid ascending aorta diameter of 26 mm. Abdominal aorta incompletely visualized. Normal abdominal aorta Doppler flow pattern. No atrial level shunt by color flow imaging. No intracardiac mass or thrombus, but the left atrial appendage cannot be visualized adequately with transthoracic echo to exclude thrombus in this location. No pericardial effusion. Infusion catheter visualized. For the complete report, see the Order-Level Documents. Narrative 11/20/2024 4:18 PM CDT For the complete report, see the Order-Level Documents. Hemodynamics Heart Rate: 60 BPM Blood Pressure: 112 / 72 mmHg ECG: Sinus rhythm Final Impressions 1. Normal left ventricular chamber size, no regional wall motion abnormalities, calculated 2-D biplane volumetric ejection fraction of 60%. 2. Global averaged left ventricular longitudinal peak systolic strain is normal at -23% (normal = more negative than -18%). 3. Normal left ventricular diastolic function. 4. Normal right ventricular chamber size, normal systolic function, estimated right ventricular systolic pressure 28 mmHg (systolic blood pressure 112 mmHg). 5. No hemodynamically significant valvular heart disease. 6. Normal inferior vena cava size with normal inspiratory collapse (>50%). 7. No pericardial effusion. 8. There are no previous [facility] echocardiograms available for comparison. Procedure Note Sofya Coleman M.D., Pharm.D. - 11/20/2024 For the complete report, see the Order-Level Documents. Hemodynamics Heart Rate: 60 BPM Blood Pressure: 112 / 72 mmHg ECG: Sinus rhythm Final Impressions 1. Normal left ventricular chamber size, no regional wall motionabnormalities, calculated 2-D biplane volumetric ejection fraction of60%. 2. Global averaged left ventricular longitudinal peak systolic strain isnormal at -23% (normal = more negative than -18%). 3. Normal left ventricular diastolic function. 4. Normal right ventricular chamber size, normal systolic function,estimated right ventricular systolic pressure 28 mmHg (systolic bloodpressure 112 mmHg). 5. No hemodynamically significant valvular heart disease. 6. Normal inferior vena cava size with normal inspiratory collapse(>50%). 7. No pericardial effusion. 8. There are no previous [facility] echocardiograms available forcomparison. Findings LEFT VENTRICLE:Normal left ventricular chamber size. Normal leftventricular geometry. Calculated 2-D biplane volumetric left ventricularejection fraction of 60%. Strain imaging examination performed to assessleft ventricular function. Global averaged left ventricular longitudinalpeak systolic strain is normal at -23% (normal = more negative than -18%).No regional wall motion abnormalities. Normal left ventricular diastolicfunction. RIGHT VENTRICLE:Normal right ventricular chamber size. Normal rightventricular systolic function. Estimated right ventricular systolicpressure 28 mmHg (systolic blood pressure 112 mmHg). ATRIA:Normal left atrial size. Left atrial volume index 30 ml/m2. Normalright atrial size. CARDIAC VALVES:Trileaflet aortic valve. Normal aortic valve. No aorticvalve regurgitation. Normal mitral valve. Trivial mitral valveregurgitation. Normal pulmonary valve. Normal pulmonary valve systolicvelocities. Trivial pulmonary valve regurgitation. Normal tricuspid valve.Trivial tricuspid valve regurgitation. OTHER ECHO FINDINGS:Normal inferior vena cava size with normal inspiratorycollapse (>50%). Normal mid ascending aorta diameter of 26 mm. Abdominalaorta incompletely visualized. Normal abdominal aorta Doppler flowpattern. No atrial level shunt by color flow imaging. No intracardiac massor thrombus, but the left atrial appendage cannot be visualized adequatelywith transthoracic echo to exclude thrombus in this location. Nopericardial effusion. Infusion catheter visualized. For the complete report, see the Order-Level Documents. us Jacinto Chan M.D. CV ECHO PROCEDURES Final Re sult * Breast(s)-Internal Medicine Image Exam (11/20/2024 10:52 AM CDT) 11/20/2024 10:5 1 AM CDT Narrative [facility] - 11/20/2024 10:52 AM CDT This order has been created and auto-finalized to support the import of images acquired without order. The clinical documentation to support these images can be found on the encounter that produced images. us Provider Not In System IMG NON RAD IMAGING PROCE DURES Final Result [facility] NA * Interpretation of Outside Breast Imaging (11/10/2024 3:49 PM CDT) Anatomical Region Laterality Modality Breast, Breast Imaging RST L OS, Breast Imaging ARZ LOS, Breast Imaging FLA LOS, Other N/A Mammography Impressions 11/11/2024 2:09 PM CDT 1. Left breast invasive malignancy revealed upon excisional biopsy of a large suspicious mass documented at the 11 o'clock position 6 cm from the nipple. No prior mammography or imaging of the right breast provided for review. [facility] Pathology review of outside histology pending at the time of dictation. 2. Left axillary lymphadenopathy status post outside facility ultrasound-guided biopsy without provided outside pathology. [facility] Pathology review again pending, though metastatic carcinoma would be concordant with imaging findings. RECOMMENDATIONS: 1. Recommend follow-up of [facility] Pathology review of outside histology for confirmation of lymph node biopsy result in addition to excisional margin status and/or likelihood of residual disease. 2. Recommend bilateral diagnostic mammogram as foundational supplemental assessment of the left breast in addition to right breast. Understandably assessment of the left breast will be limited given the recent surgery. - Attempted mammographic inclusion of the left axilla would also be recommended, as to confirm morphology and position of the reportedly placed left axillary biopsy clip. 3. Targeted left axillary ultrasound may also be performed to confirm sonographic visualization and positioning of the left axillary biopsy clip, if the placed clip morphology should be amenable. 4. Future assessment with breast MRI may be of benefit to further characterize possible extent. 5. If clinical sequelae of inflammatory breast carcinoma are suspected confirmation with skin biopsy may be of benefit to corroborate any future imaging findings. Narrative 11/11/2024 2:09 PM CDT EXAM: INTERPRETATION OF OUTSIDE BREAST IMAGING HISTORY/INDICATION: 39-year-old female requesting review of outside breast imaging. DENSITY: c. The breast(s) are heterogeneously dense, which may obscure small masses. FINDINGS: Left breast ultrasound-guided biopsy dated 04/28/2024: Multiple preprocedural images provided visualizing the palpable suspicious left breast mass documented at the 11 o'clock position 6 cm from the nipple measuring up to approximately 4.8 cm. Provided annotations indicate biopsy marker clip placement, though no postprocedural mammogram provided to confirm placement and morphology. Per outside facility pathology was consistent with a lactating adenoma, which based upon the imaging appearance of the targeted mass would be considered discordant. Left breast ultrasound without contrast dated 09/04/2024 compared to 04/01/2024: Intervally enlarged hypoechoic, irregular mass measuring approximately 6.4 x 6.2 x 3.7 cm. A central Hydro[employer] biopsy clip is visualized. Left breast and axillary ultrasound without contrast dated 11/05/2024: Examination performed soon after apparent surgical excisional biopsy of the palpable left breast mass documented at the 11 o'clock position. 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 Reassessment of the left breast at the 11 o'clock position visualizes complex fluid consistent with postoperative seroma/hematoma compatible with early postoperative sequela. Targeted left axillary ultrasound visualizes left axillary lymphadenopathy. Ultrasound-guided left axillary biopsy dated 11/05/2024: Multiple intraprocedural images provided consistent with ultrasound-guided sampling of a prominently cortically thickened left axillary lymph node with subsequent biopsy marker clip placement. Outside facility pathology not available. No postprocedural mammogram provided for review. Procedure Note Dru Delgado M.D. - 11/11/2024 EXAM: INTERPRETATION OF OUTSIDE BREAST IMAGING HISTORY/INDICATION: 39-year-old female requesting review of outsidebreast imaging. DENSITY: c. The breast(s) are heterogeneously dense, which may obscuresmall masses. FINDINGS: Left breast ultrasound-guided biopsy dated 04/28/2024: Multiplepreprocedural images provided visualizing the palpable suspicious leftbreast mass documented at the 11 o'clock position 6 cm from the nipplemeasuring up to approximately 4.8 cm. Provided annotations indicate biopsy marker clip placement, though nopostprocedural mammogram provided to confirm placement and morphology. Peroutside facility pathology was consistent with a lactating adenoma, whichbased upon the imaging appearance of the targeted mass would be considered discordant. Left breast ultrasound without contrast dated 09/04/2024 compared to04/01/2024: Intervally enlarged hypoechoic, irregular mass measuringapproximately 6.4 x 6.2 x 3.7 cm. A central Hydro[employer] biopsy clip isvisualized. Left breast and axillary ultrasound without contrast dated 11/05/2024:Examination performed soon after apparent surgical excisional biopsy ofthe palpable left breast mass documented at the 11 o'clock position. Peroutside facility pathology at the time of excisional biopsy revealed invasive ductal carcinoma grade 3 of 3, andDCIS (high-grade) in addition to prominent lactational changes consistentwith a lactating adenoma (involvement by carcinoma). Reassessment of the left breast at the 11 o'clock position visualizescomplex fluid consistent with postoperative seroma/hematoma compatiblewith early postoperative sequela. Targeted left axillary ultrasoundvisualizes left axillary lymphadenopathy. Ultrasound-guided left axillary biopsy dated 11/05/2024: Multipleintraprocedural images provided consistent with ultrasound-guided samplingof a prominently cortically thickened left axillary lymph node withsubsequent biopsy marker clip placement. Outside facility pathology not available. No postprocedural mammogramprovided for review. IMPRESSION: 1. Left breast invasive malignancy revealed upon excisional biopsy of alarge suspicious mass documented at the 11 o'clock position 6 cm from thenipple. No prior mammography or imaging of the right breast provided forreview. [facility] Pathology review of outside histology pending at the time of dictation. 2. Left axillary lymphadenopathy status post outside facilityultrasound-guided biopsy without provided outside pathology[facility], though metastatic carcinoma would beconcordant with imaging findings. RECOMMENDATIONS: 1. Recommend follow-up of [facility] Pathology review of outsidehistology for confirmation of lymph node biopsy result in addition toexcisional margin status and/or likelihood of residual disease. 2. Recommend bilateral diagnostic mammogram as foundational supplementalassessment of the left breast in addition to right breast. Understandablyassessment of the left breast will be limited given the recent surgery. - Attempted mammographic inclusion of the left axilla would also berecommended, as to confirm morphology and position of the reportedlyplaced left axillary biopsy clip. 3. Targeted left axillary ultrasound may also be performed to confirmsonographic visualization and positioning of the left axillary biopsyclip, if the placed clip morphology should be amenable. 4. Future assessment with breast MRI may be of benefit to furthercharacterize possible extent. 5. If clinical sequelae of inflammatory breast carcinoma are suspectedconfirmation with skin biopsy may be of benefit to corroborate any futureimaging findings. us Jacinto Chan M.D. IMJoshua BI PROCEDURES Final Res ult * Interpretation of Outside NM PET Scan (11/10/2024 1:23 PM CDT) Anatomical Region Laterality Modality Nuclear Medicine PET RST LOS , Nuclear Medicine ARZ LOS, Nuclear Medicine FLA LOS, Nuclear Medicine, Other, Neuroradiology ARZ LOS, Neuroradiology FLA LOS, Neuroradiology RST LOS, Body N/A Nuclear Medicine Impressions 11/11/2024 12:43 PM CDT Multiple likely metastatic left axillary nodes. Postsurgical changes left breast; several sites of activity in the left breast may be inflammatory and/or tumor. Extensive parenchymal FDG activity in the right breast is consistent with and obscures evaluation. Please see findings for details and other observations. Narrative 11/11/2024 12:43 PM CDT EXAM: INTERPRETATION OF OUTSIDE NM PET SCAN dated November 05, 2024. TECHNIQUE: Outside PET scan dated November 05, 2024 from skull base to proximal thighs following intravenous injection of 10 mCi F-18 fluorodeoxyglucose with low dose, unenhanced, free breathing, nondiagnostic quality CT images obtained for anatomic coregistration and attenuation correction purposes only. COMPARISON: None INDICATION: Breast cancer. Initial treatment strategy. FINDINGS: FDG activity throughout the parenchyma of the right breast is suggestive of . This obscures PET evaluation. There is an approximately 9 cm seroma in the left breast. Sites of nonspecific activity along the margin of the seroma on series 2355 images 134 137 have respective SUV maximums of 4.3 and 4.3. Indeterminate activity in the parenchyma of the upper outer left breast on series 2355 image 147 has an SUV max of 4. Indeterminate activity in the lateral left breast on series 2355 image 133 has an SUV max of 4.2. Diffuse dermal thickening of the mid and lower left breast shows FDG uptake and could be inflammation/edema with or without admixed tumor. Multiple FDG avid left axillary nodes on series 2355 images 155-171 suggestive of metastatic disease. Noted on low dose, unenhanced, free breathing, nondiagnostic quality CT images obtained for coregistration and attenuation correction purposes only: 1.7 cm plaque-like thickening in the right lung base on series 201 image 81. Tiny possible nodule in the left upper pulmonary lobe on series 201 image 58. Procedure Note Gideon Abdi M.D., Ph.D. - 11/11/2024 EXAM: INTERPRETATION OF OUTSIDE NM PET SCAN dated November 05, 2024. TECHNIQUE: Outside PET scan dated November 05, 2024 from skull base toproximal thighs following intravenous injection of 10 mCi F-18fluorodeoxyglucose with low dose, unenhanced, free breathing,nondiagnostic quality CT images obtained for anatomic coregistration and attenuation correction purposes only. COMPARISON: None INDICATION: Breast cancer. Initial treatment strategy. FINDINGS: FDG activity throughout the parenchyma of the right breast is suggestiveof . This obscures PET evaluation. There is an approximately 9 cm seroma in the left breast. Sites ofnonspecific activity along the margin of the seroma on series 2355 [id number] have respective SUV maximums of 4.3 and 4.3. Indeterminate activity in the parenchyma of the upper outer left breast onseries 2355 image 147 has an SUV max of 4. Indeterminate activity in the lateral left breast on series 2355 image 133has an SUV max of 4.2. Diffuse dermal thickening of the mid and lower left breast shows FDGuptake and could be inflammation/edema with or without admixed tumor. Multiple FDG avid left axillary nodes on series 2355 images 155-171suggestive of metastatic disease. Noted on low dose, unenhanced, free breathing, nondiagnostic quality CTimages obtained for coregistration and attenuation correction purposesonly: 1.7 cm plaque-like thickening in the right lung base on series 201image 81. Tiny possible nodule in the left upper pulmonary lobe on series 201 image 58. IMPRESSION: Multiple likely metastatic left axillary nodes. Postsurgical changes leftbreast; several sites of activity in the left breast may be inflammatoryand/or tumor. Extensive parenchymal FDG activity in the right breast isconsistent with and obscures evaluation. Please see findings for details andother observations. Jacinto CORTEZ NM PROCEDURES Final Res ult from Last 3 Months Additional Health Concerns Infection Onset Date Last Indicated Protective Environment 12/11/2024 5 Insurance [facility]
--- OUTSIDE RECORDS SUMMARY | 2025-02-06 01:11 | XMS_ITS | Encounter Summary ---
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 [address] [place] [phone] Social History Tobacco Use Types Packs/Day Years [...] things needed for daily living? No 11/17/2024 [facility] Utilities Answer Date Recorded In the past 12 months has e electric, gas, oil, or water company threatened to shut off services in your home? No 11/17/2024 Housing Stability Answer Date Recorded What is your living situation today? I have a [facility] place to live 11/17/2024 Comments No [...] (Latest Contact Info) Description 02/12/2025 8:45 AM CONTACT ACID PLANT OPERATOR HELPER Lab Department of Oncology in [place], [place] [address] [place] [phone] Bradley Booker M.D. [address] [place] [phone] 02/12/2025 11:30 AM CONTACT ACID PLANT OPERATOR HELPER Infusion Department of Oncology in [place], [place] [address] [place] [phone] Bradley Booker M.D. [address] [place] [phone] 02/17/2025 9:15 AM CONTACT ACID PLANT OPERATOR HELPER Clinical Communication Virtual Review in [place], [place] 200 [place] [address] 02/18/2025 8:00 AM CONTACT ACID PLANT OPERATOR HELPER Lab Department of Oncology in [place], [place] [address] [place] [phone] Bradley Booker M.D. [address] [place] [phone] 02/18/2025 10:00 AM CONTACT ACID PLANT OPERATOR HELPER Office Visit Division of Hematology in [place], [place] [address] [place] [phone] Latrice Gomez M.D. [address] [place] [phone] 02/18/2025 10:30 AM CONTACT ACID PLANT OPERATOR HELPER Infusion Department of Oncology in [place], [place] [address] [place] [phone] Bradley Booker M.D. [address] [place] [phone] 02/26/2025 7:00 AM CONTACT ACID PLANT OPERATOR HELPER Lab Department of Oncology in [place], [place] [address] [place] [address] Bradley Booker M.D. [address] [place] [phone] 02/26/2025 9:00 AM CONTACT ACID PLANT OPERATOR HELPER Infusion Department of Oncology in [place], [place] [address] [place] [phone] Bradley Booker M.D. [address] [place] [phone] 03/05/2025 7:00 AM CONTACT ACID PLANT OPERATOR HELPER Lab Department of Oncology in [place], [place] [address] [place] [phone] Bradley Booker M.D. [address] [place] [phone] 03/05/2025 9:00 AM CONTACT ACID PLANT OPERATOR HELPER Infusion Department of Oncology in [place], [place] [address] [place] [phone] Bradley Booker M.D. [address] [place] [phone] 03/19/2025 10:30 AM CONTACT ACID PLANT OPERATOR HELPER Lab Department of Laboratory Medicine and Pathology, [facility], in [place], [place] [address] [place] [phone] Bradley Booker M.D. [address] [place] [phone] 03/19/2025 2:00 PM CONTACT ACID PLANT OPERATOR HELPER Infusion Department of Oncology in [place], [place] [address] [place] [phone] Bradley Booker M.D. [address] [place] [phone] 03/23/2025 10:00 AM CONTACT ACID PLANT OPERATOR HELPER Telemedicine Division of Breast and Melanoma Surgical Oncology in [place], [place] [address] [place] [phone] Kell Craven APRN, C.N.P., D.N.P. [address] [place] [phone] 03/25/2025 3:20 PM CONTACT ACID PLANT OPERATOR HELPER Comprehensive Visit Department of Oncology in [place], [place] [address] [place] [phone] Kilo Patel APRN, C.N.P., D.N.P. [address] [place] [phone] 04/08/2025 9:30 AM CONTACT ACID PLANT OPERATOR HELPER Clinical Communication Virtual Review in [place], [place] 200 [place] [address] 04/09/2025 8:00 AM CONTACT ACID PLANT OPERATOR HELPER Lab Department of Oncology in [place], [place] [address] [place] [phone] Bradley Booker M.D. [address] [place] [phone] 04/09/2025 10:00 AM CONTACT ACID PLANT OPERATOR HELPER Office Visit Department of Oncology in [place], [place] [address] [place] [address] Bradley Booker M.D. [address] [place] [address] 04/09/2025 11:00 AM CONTACT ACID PLANT OPERATOR HELPER Infusion Department of Oncology in [place], [place] [address] [place] [address] Bradley Booker M.D. 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
--- OUTSIDE RECORDS SUMMARY | 2025-02-06 01:11 | XMS_ITS | Clinical Summary ---
Author Organization [facility] Address [address] [place] [address] Care Team Providers Care Synthetic Department Supervisor Name Role Phone [facility], [facility] Primar Care Provider Allergies No known active allergies Encounters Date Type Department Care Team Description 12/28/2024 3:34 PM CDT - 12/28/2024 5:13 PM CDT Emergency [facility] Emergency Dept [address] [place] [address] Russ Ibrahim MD Pneumonia of left lower lobe due to infectious organism (Primary Dx) Discharge Disposition: Home or Self Care from Last 3 Months Social History Tobacco Use Types Packs/Day Years Used Date Smoking Tobacco: Never Assessed Comments Unknown Sex and Gender Information Value Date Recorded Sex Assigned at Not on file Legal Sex Female 2:59 PM CDT Gender Identity Not on file Sexual Orientation Not on file Last Filed Vital Signs Vital Sign Reading [...] Mass Index 38.45 12/28/2024 3:31 PM CDT Plan of Treatment Health Maintenance Due Date Last Done Comments ADVANCE CARE PLANNING 1987 ANNUAL REVIEW OF HM ORDERS 1987 YEARLY PREVENTIVE VISIT 06/22/1990 HIV SCREENING 06/22/2002 HEPATITIS C SCREENING 06/22/2005 HEPATITIS B VACCINE (1 of 3 - 19+ 3-dose series) 06/22/2006 PAP 06/22/2008 DTAP/TDAP/TD VACCINE (3 - Td or Tdap) 09/22/2020 09/22/2010, 09/04/2001 PHQ-2 (once per calendar year) 2024 COVID-19 VACCINE (1 - season) 2024 INFLUENZA VACCINE (#1) 2024 6, 01/14/2012, 01/05/2008, Additional history exists DIABETES SCREENING 12/29/2027 12/28/2024 ZOSTER VACCINE (1 of 2) 06/22/2037 HPV VACCINE (No Doses Required) Completed MENINGITIS VACCINE Aged Out No longer eligible based on patient's age to complete this topic PNEUMOCOCCAL VACCINE: PEDIATRICS (0 to 5 YEARS) AND AT-RISK PATIENTS (6 to 49 YEARS) Aged Out No longer eligible based on patient's age to complete this topic Procedures Procedure Name Priority Date/Time Associated Diagnosis Comments XR CHEST 2 VIEWS STAT 12/28/2024 4:29 PM CDT BLOOD CULTURE STAT 12/28/2024 4:15 PM CDT EXTRA RED TOP TUBE STAT 12/28/2024 3: 58 PM CDT EXTRA BLUE TOP TUBE STAT 12/28/2024 3 :58 PM CDT EXTRA TUBE STAT 12/28/2024 3:58 PM CDT CBC WITH PLATELETS AND DIFFERENTIAL (LIMITED OCCURRENCES) STAT 12/28/2024 3:57 PM CDT BLOOD CULTURE STAT 12/28/2024 3:57 PM CDT CBC WITH PLATELETS AND DIFFERENTIAL STAT 12/28/2024 3:57 PM CDT LACTIC ACID WHOLE BLOOD WITH 1X REPEAT IN 2 HR WHEN >2 STAT 12/28/2024 3:57 PM CDT COMPREHENSIVE METABOLIC PANEL (LIMITED OCCURRENCES) STAT 12/28/2024 3:57 PM CDT ROUTINE UA WITH MICROSCOPIC REFLEX TO CULTURE STAT 12/28/2024 3:54 PM CDT INFLUENZA A/B, RSV AND SARS-COV2 PCR STAT 12/28/2024 3:53 PM CDT from Last 3 Months Results * Chest XR, PA & LAT [...] CDT EXAM: XR CHEST 2 VIEWS LOCATION: [facility] DATE: 12/28/2024 INDICATION: Fever. Cough. COMPARISON: None. Procedure Note Paras Deng MD - 12/28/2024 EXAM: XR CHEST 2 VIEWS LOCATION: [facility] DATE: 12/28/2024 INDICATION: Fever. Cough. COMPARISON: None. IMPRESSION: Mild opacity in the left lower lobe retrocardiac region may berelated to atelectasis or pneumonia. The right lung is clear. [id number], tip in the low SVC. No pleural effusions. us Russ Ibrahim MD IMG DIAGNOSTIC IMAGING O RDERABLES Final Result * Blood Culture Peripheral blood (BC) Arm, Left (12/28/2024 4:15 PM CDT) Only the most recent of2 resultswithin the time period is included. Culture No Growth 01/02/2025 8:46 PM CDT [facility] Peripheral blood (BC) STRUCTURE OF LEFT UPPER LIMB / Unknown Venipuncture / Unknown 12/28/2024 4:15 PM CDT 12/28/2024 4:18 PM CDT Russ Ibrahim MD LAB - MICRO GENERAL ORDE RABLES Final Result [facility] Inf. Diseases Diag. Lab [address] [facility], [address] [place] [address], [facility] * Extra Red Top Tube (12/28/2024 3:58 PM CDT) Hold Specimen [facility] 12/28/2024 5:17 PM CDT [facility] Blood BLOOD SPECIMEN / Unknown Venipuncture / Unknown 12/28/2024 3:58 PM CDT 12/28/2024 4:04 PM CDT Russ Ibrahim MD LAB - BLOOD ORDERABLES F inal Result [facility] Lab [address] [employer] Lab (1st floor, no room number) [place] [address], [facility] * Extra Blue Top Tube (12/28/2024 3:58 PM CDT) Hold Specimen [facility] 12/28/2024 5:17 PM CDT [facility] Blood BLOOD SPECIMEN / Unknown Venipuncture / Unknown 12/28/2024 3:58 PM CDT 12/28/2024 4:04 PM CDT Russ Ibrahim MD LAB - BLOOD ORDERABLES F inal Result [facility] [address] Lab (1st floor, no room number) [place] [address], [facility] * Lactic acid whole blood with 1x repeat in 2 hr when >2 (12/28/2024 3:57 PM CDT) Pathologist [facility] Lactic Acid, Initial 0.7 0.7 - 2.0 mmol/L 12/28/2024 4:08 PM CDT [facility] Blood BLOOD SPECIMEN / Unknown Venipuncture / Unknown 12/28/2024 3:57 PM CDT 12/28/2024 4:06 PM CDT us Russ Ibrahim MD LAB - BLOOD ORDERABLES F inal Result [facility] [address] [facility] Lab (1st floor, no room number) [place] [address], [facility] * (ABNORMAL) CBC with platelets and differential (12/28/2024 3:57 PM CDT) Pathologist [facility] WBC Count 11.69(H) 4.00 - 11.00 10e3/uL [...] - BLOOD ORDERABLES F inal Result LABORATORY [facility] [address] Lab (1st floor, no room number) [place] [address], [facility] * (ABNORMAL) Comprehensive Metabolic Panel (Limited Occurrences) (12/28/2024 3:57 PM CDT) Sodium 136 135 - 145 mmol/L 12/28/2024 4:30 PM CDT [facility] Potassium 3.9 3.4 - 5.3 mmol/L 12/28/2024 4:30 PM CDT [facility] Carbon Dioxide (CO2) 26 22 - 29 mmol/L 12/28/2024 4:30 PM CDT [facility] Anion Gap 11 7 - 15 mmol/L 12/28/2024 4:30 PM CDT [facility] Urea Nitrogen 11.6 6.0 - 20.0 mg/dL 12/28/2024 4:30 PM CDT [facility] Creatinine 0.70 0.51 - 0.95 mg/dL 12/28/2024 4:30 PM CDT [facility] GFR Estimate >90 >60 mL/min/1.7 3m2 12/28/2024 4:30 PM CDT [facility] Comment:eGFR calculated usin 2020 CKD-EPI equation. Calcium 9.1 8.8 - 10.4 mg/dL 12/28/2024 4:30 PM CDT [facility] Chloride 99 98 - 107 mmol/L 12/28/2024 4:30 PM CDT [facility] Glucose 112(H) 70 - 99 mg/dL 12/28/2024 4:30 PM CDT [facility] Alkaline Phosphatase 80 40 - 150 U/L 12/28/2024 4:30 PM CDT [facility] AST 16 0 - 45 U/L 12/28/2024 4:30 PM CDT [facility] ALT 16 0 - 50 U/L 12/28/2024 4:30 PM CDT [facility] Protein Total 7.3 6.4 - 8.3 g/dL 12/28/2024 4:30 PM CDT [facility] Albumin 4.4 3.5 - 5.2 g/dL 12/28/2024 4:30 PM CDT [facility] Bilirubin Total 0.6 <=1.2 mg/dL 12/28/2024 4:30 PM CDT [facility] Blood BLOOD SPECIMEN / Unknown Venipuncture / Unknown 12/28/2024 3:57 PM CDT 12/28/2024 4:04 PM CDT Russ Ibrahim MD LAB - BLOOD ORDERABLES F inal Result [facility] [address] [facility], no room number) [place] [address], [facility] * (ABNORMAL) UA with Microscopic reflex to Culture (12/28/2024 3:54 PM CDT) Color Urine Light Yellow Colorless, Straw, Light Yellow, Yellow 12/28/2024 4:15 PM CDT LABORATORY Appearance Urine Clear Clear 12/29/19 4:15 PM CDT [facility] Glucose Urine Negative Negative mg/dL 12/28/2024 4:15 PM CDT LABORATORY Bilirubin Urine Negative Negative 4:15 PM CDT [facility] Ketones Urine Negative Negative mg/dL 12/28/2024 4:15 PM CDT [facility] Specific [place] Urine 1.020 1.003 - 1.035 12/28/2024 4:15 PM CDT LABORATORY Blood Urine Negative Negative 12/28/2024 4:15 PM CDT LABORATORY pH Urine 8.5(H) 5.0 - 7.0 12/28/2024 4:15 PM CDT [facility] Protein Albumin Urine Negative Negative mg/dL 12/28/2024 4:15 PM CDT LABORATORY Urobilinogen Urine Normal Normal mg/dL 12/28/2024 4:15 PM CDT [facility] Nitrite Urine Negative Negative 12/28/2024 4:15 [...] 4:15 PM CDT Urine Culture not indicated us Russ Ibrahim MD LAB - URINE ORDERABLES F inal Result LABORATORY [facility] [address] [facility] Lab (1st floor, no room number) [place] [address], [facility] * Influenza A/B, RSV and SARS-CoV2 PCR (COVID-19) Nose (12/28/2024 3:53 PM CDT) Pathologist [facility] Influenza A PCR Negative Negative 12/28/2024 4:45 PM CDT LABORATORY Influenza B PCR Negative Negative 12/28/2024 4:45 PM CDT LABORATORY RSV PCR Negative Negative 12/28/2024 4:45 PM CDT LABORATORY SARS CoV2 PCR Negative Negative 12/28/2024 4:45 PM CDT LABORATORY Comment:NEGATIVE: SARS-CoV-2 (COVID-19) RNA not detected, presumed negative. Swab NASAL STRUCTURE / Unknown Non-blood Collection / Unknown 12/28/2024 3:53 PM CDT 12/28/2024 4:04 PM CDT [facility]ORATORY - 12/28/2024 4:45 PM CDT Testing was performed using the Xpert Xpress CoV2/Flu/RSV Assay on the [employer] GeneXpert Instrument. This test should be ordered [...] management. This test was validated by the [facility]. These laboratories are certified under the Clinical Laboratory Improvement Amendments of 1988 (CLIA-88) as qualified to perfom high complexity laboratory testing. us Russ Ibrahim MD LAB - MICRO GENERAL LIANNEHector MORRISSEY Final Result [facility] Lab [address] Lab (1st floor, no room number) [place] [address], [facility] from Last 3 Months Insurance [facility] BS [facility] BS Care Teams Synthetic Department Supervisor Relationship Specialty Start Date End Date [facility], [facility] [address] [place] [address] PCP - General 12/28/24
--- OUTSIDE RECORDS SUMMARY | 2025-02-06 01:11 | XMS_ITS | Encounter Summary ---
Author Organization [facility] Address [address] [place] [address] Care Team Providers Care Electronic Gaming Device Supervisor Name Role Phone Unavailable Primary Care Provider Unavailabl e Encounter Details Date Type Department Care Team (Late st Contact Info) Description 11/24/2024 Results Follow-Up Breast Diagnostic Clinic in [place], [place] [address] [place] [address] Donna Zimmer MR Breast Bilateral without and with IV Contrast Social History Tobacco Use Types Packs/Day Years [...] things needed for daily living? No 11/17/2024 [facility] Utilities Answer Date Recorded In the past 12 months has e electric, gas, oil, or water company threatened to shut off services in your home? No 11/17/2024 Housing Stability Answer Date Recorded What is your living situation today? I [facility] a [facility] place to live 11/17/2024 Comments No Sex [...] (Latest Contact Info) Description 02/12/2025 8:45 AM FUNCTIONAL SKILLS TUTOR Lab Department of Oncology in [place], [place] [address] [place] [phone] Bradley Booker M.D. [address] [place] [phone] 02/12/2025 11:30 AM FUNCTIONAL SKILLS TUTOR Infusion Department of Oncology in [address] [address] Bradley Booker M.D. [address] [place] [phone] 02/17/2025 9:15 AM FUNCTIONAL SKILLS TUTOR Clinical Communication Virtual Review in [address] [phone] 02/18/2025 8:00 AM FUNCTIONAL SKILLS TUTOR Lab Department of Oncology in [address] [address] Bradley Booker M.D. [address] [place] [phone] 02/18/2025 10:00 AM FUNCTIONAL SKILLS TUTOR Office Visit Division of Hematology in [address] [phone] Latrice Gomez M.D. [address] [place] [phone] 02/18/2025 10:30 AM FUNCTIONAL SKILLS TUTOR Infusion Department of Oncology in [address] [address] Bradley Booker M.D. [address] [place] [phone] 02/26/2025 7:00 AM FUNCTIONAL SKILLS TUTOR Lab Department of Oncology in [place], [place] [address] [place] [address] Bradley Booker M.D. [address] [place] [phone] 02/26/2025 9:00 AM FUNCTIONAL SKILLS TUTOR Infusion Department of Oncology in [place], [place] [address] [place] [address] Bradley Booker M.D. [address] [place] [phone] 03/05/2025 7:00 AM FUNCTIONAL SKILLS TUTOR Lab Department of Oncology in [place], [place] [address] [place] [address] Bradley Booker M.D. [address] [place] [phone] 03/05/2025 9:00 AM FUNCTIONAL SKILLS TUTOR Infusion Department of Oncology in [place], [place] [address] [place] [address] Bradley Booker M.D. [address] [place] [phone] 03/19/2025 10:30 AM FUNCTIONAL SKILLS TUTOR Lab Department of Laboratory Medicine and Pathology, [facility], in [place], [place] [address] [place] [address] Bradley Booker M.D. [address] [place] [phone] 03/19/2025 2:00 PM FUNCTIONAL SKILLS TUTOR Infusion Department of Oncology in [place], [place] [address] [place] [phone] Bradley Booker M.D. [address] [place] [phone] 03/23/2025 10:00 AM FUNCTIONAL SKILLS TUTOR Telemedicine Division of Breast and Melanoma Surgical Oncology in [place], [place] [address] [place] [phone] Kell Craven APRN, C.N.P., D.N.P. [address] [place] [phone] 03/25/2025 3:20 PM FUNCTIONAL SKILLS TUTOR Comprehensive Visit Department of Oncology in [place], [place] [address] [place] [phone] Kilo Patel APRN, C.N.P., D.N.P. [address] [place] [phone] 04/08/2025 9:30 AM FUNCTIONAL SKILLS TUTOR Clinical Communication Virtual Review in [place], [place] 200 [place] [address] 04/09/2025 8:00 AM FUNCTIONAL SKILLS TUTOR Lab Department of Oncology in [place], [place] [address] [place] [phone] Bradley Booker M.D. [address] [place] [phone] 04/09/2025 10:00 AM FUNCTIONAL SKILLS TUTOR Office Visit Department of Oncology in [place], [place] [address] [place] [phone] Bradley Booker M.D. [address] [place] [phone] 04/09/2025 11:00 AM FUNCTIONAL SKILLS TUTOR Infusion Department of Oncology in [place], [place] [address] [place] [phone] Bradley Booker M.D. [address] [place] [phone] documented as of this encounter Visit Diagnoses Not on filedocumented in this encounter Additional Health Concerns Infection Onset Date Last Indicated Resolved Time Protective Environment 12/11/2024 12/11/2024 documented as of this encounter
--- OUTSIDE RECORDS SUMMARY | 2025-02-06 01:11 | XMS_ITS ---
Author Name Interface, [id number] l[employer] Address [address] [facility] [address] [place] [address] Organization [facility] Address [address] [facility] [address] [place] [address] Support Name Relationship Address Phone PANDA BERMEO Spouse Unknown Unavailable Allergies and Adverse Reactions Medication/Group Name Reaction Severity Date No known allergies Plan Date Type Value 01/18/2025 APPOINTMENT PALLIATIVE CARE CONSULT 80 MIN 12/25/2024 APPOINTMENT TREATMENT 5 HR 12/25/2024 APPOINTMENT TREATMENT 5 HR 12/25/2024 APPOINTMENT OV 20 MIN 12/25/2024 APPOINTMENT PORT DRAW 15 MIN 12/21/2024 APPOINTMENT LAB 15 MIN 12/21/2024 APPOINTMENT NEW PT CONSULT 6 0 MIN 12/25/2024 LAB_ORDER CBC w/ auto diff 12/25/2024 LAB_ORDER iSTAT creatinine panel 12/25/2024 LAB_ORDER CMP Reason for Visit PALLIATIVE CARE CONSULT 80 MIN Encounters Date Name 12/21/2024 Breast cancer, femal e 12/21/2024 Estrogen receptor ne gative status [ER-] 12/21/2024 Progesterone recepto r negative neoplasm Medications Date Name Route Dose Frequency Instructions Start Date End Date Status Fill Status Indication 12/21 Magnesi um Oral QD active 12/21 Albuter ol HFA Inhaler 90 mcg/act uation PRN active 12/21 Probiot ics Oral QD active 12/21 Vitamin D3-Shefali min K2 Oral 250 mcg (10,000 unit)-4 5 mcg Qd active 12/21 Melaton in Oral QD active 12/21 Seleniu m Oral QD active 12/21 Loratad ine Oral QD active 12/21 Flutica sone-Sa lmetero l Inhaler 250 mcg-50 mcg/Dos e BID active 12/21 Miscell aneous Drug QD DIM supplement active 12/14 olanzap ine 2.5 MG Oral Tablet orally 2.5 mg every day at bedtime 2024 active Breast cancer, female 12/14 prochlo rperazi ne 10 MG Oral Tablet orally 1.0 tablet every 6 hours 2024 active Breast cancer, female Problems Diagnosis Status Date of Diagnosis Resolution Date Estrogen receptor negative status [ER-] Active 0 12/14/2024 Progesterone receptor negative neoplasm Active 0 12/14/2024 Breast cancer, female Active Vital Signs Date Type Value 12/21/2024 Body Temperature 98.70 12/21/2024 Heart Beat 78.00 12/21/2024 Respiratory Rate 16.00 12/21/2024 Oxygen Saturation 100.00 12/21/2024 BSA 2.06 12/21/2024 Pain Scale 0.00 12/21/2024 Weight 223.60 12/21/2024 Height 64.50 12/21/2024 BMI 37.79 12/21/2024 Intravascular Systolic 124 12/21/2024 Intravascular Diastolic 64 Notes Section * Med Onc Consult Patient Name:??JAZLYN BERMEO Date of :??1985 Date of Service:??12/21/2024 Attending Physician:?Dayton Whipple (Hematology/Oncology) Referring Physician: Katrina Yarbrough MD (Hematology/Oncology) INITIAL HEMATOLOGY/MEDICAL ONCOLOGY CONSULTATION Reason for Visit Establish care for breast cancer Assessment 1. ??Clinical stage??IIIB versus IIIC??T4 based on dermal involvement??N1 M0, invasive ductal cancer grade 3??ER negative, WV negative, HER2/gauri??low/negative ??? Date of diagnosis 10/26/2024, treatment intent: Curative ??? Patient appears to have skin thickening but no peau de orange to suggest??inflammatory breast cancer, dermal biopsy was positive which in itself does not suggest inflammatory breast cancer ??? Discussed various aspects of breast cancer cantering surgery, chemotherapy, radiation therapy ?Patient was seen at [facility] and started regimen of keynote 522??with pembrolizumab, [place]??and??paclitaxel??with plan to??transition to AC and??pembrolizumab afterward ??? Patient is leaning towards??unilateral mastectomy with reconstruction and consideration of radiation ??? Once done with neoadjuvant chemotherapy??based on pathological CR consideration of maintenance pembrolizumab??versus??transition to Capecitabine and??pembrolizumab or consideration of clinical trial??with Sacituzumab??if not in pathological CR Plan 1. ??Port placement already done 2. ??Chemotherapy teaching done at [facility] 3.?? Plan to start treatment here??for geographic convenience, continue cold capping and cryotherapy 4. ??Surgery at [facility] Advanced Care Planning Not discussed at this visit. Pain Scale on Today's Visit 0 Pain Plan on Today's Visit No pain plan indicated for today Smoking Status Smoking Status: Smoking Tobacco : Never smoker; Smokeless Tobacco : Never used smokeless tobacco; Vaping : Never vaped History of Present Illness This is a 39-year-old premenopausal female??who noted??lump??in her breast?? December 2023?? and then during breast-feeding in March 2024.?? However due to delay in diagnosis??things are rapidly and??came here to discuss further.?? 1.?? 04/01/2024: Ultrasound of left breast shows a lobulated hypoechoic mass with internal vascularity measuring 4.3 x 4.2 x 2.9 cm may represent an adenoma 2. 04/30/24: Needle biopsy, lactating adenoma negative for malignancy 2. 09/04/2024:??This area now measures 6.4 x 6.2 x 3.7 cm 3.?10/26/2024??patient had??left breast??mass, biopsy performed??excisional biopsy ??? Invasive ductal cancer ??? Mil[place] grade 3 ??? Extensive LVI ??? DCIS located ??? ER negative less than 1% ?WV negative less than 1% --HER2/gauri score of 2+ ??? Ki67 proliferative index of??80% ??? HER2/gauri??per FISH negative ??? Margins status positive??present at margin, lateral 4. ??11/05/2024:??Axillary lymph node biopsy??of left shows??high- grade??undifferentiated carcinoma with a small amount of lymphoid tissue. 5. ??11/05/2024:??PET CT scan ??? Postsurgical changes in left breast presumably hematoma ??? Multiple hypermetabolic enlarged left level 1 and 2 extra lymph nodes measuring up to 2.2 x 1.2cm to 6.8 ??? Medial subpectoral lymph node measures 0.9 x 0.8 SUV 4.2 ??? Small 0.3 cm left upper lobe pulm nodule likely too small to characterize ??? Diffuse increased uptake throughout the right breast 6.?? 11/25/2024: Bilateral diagnostic mammogram ??? Extremely dense breast tissue ??? Prominent diffuse left breast skin thickening and edema concerning for inflammatory breast cancer ??? Enlarged left axillary lymph node with HydroMARK ??? Ultrasound shows enlarged biopsy-proven left axilla lymph node. ??Also diffuse skin thickening was seen 7. ??11/25/2024: Punch biopsy??at [facility] ??? Dermal edema with perivascular??lymphocytic inflammation ?Left upper inner quadrant metastatic breast carcinoma with LVI TREATMENT: 1.12/11/24: Keynote 522, carbo/ taxol/ pembro Breast???menarche at age 15 ??? Premenopausal ? 2 para 2, 1 daughter and 1 son. Stopped nursing late November 2024 Review of Systems A comprehensive review of systems was performed and the pertinent positives and negatives can be found in the History of Present Illness. Past Medical and Surgical History Minimal PMH Current Medications Medication List Name Date Advair Diskus (Fluticasone-Salmeterol In haler 250 mcg-50 mcg/Dose) 12/21/2024 Magnesium Oral 12/21/2024 Vitamin D3-Vitamin K2 Oral 250 mcg (10,0 00 unit)-45 mcg 12/21/2024 Prochlorperazine Oral 12/16/2024 Melatonin Oral 12/21/2024 Claritin (Loratadine Oral) 12/21/2024 Albuterol HFA Inhaler 90 mcg/actuation 1 Olanzapine Oral 12/16/2024 Probiotics Oral 12/21/2024 Selenium Oral 12/21/2024 Miscellaneous Drug 12/21/2024 Allergies No known medication allergies Family History 11/03/2024:??Genetic testing negative Dad: Tongue cancer Maternal aunts: one breast cancer age 60, one cervical cancer Social History Came from [place]. Originally from [place]. works in the [employer] for the [employer]. He is in the [employer]. 2 children- Boy(5) and girl( 1) Jazlyn is not working.?? Vital Signs Blood pressure: 124/64, Pulse: 78, Temperature: 98.7 F, Respirations: 16, O2 sat: 100%, Pain Scale:0, Height: 64.5 in, Weight: 223.6 lb, BSA: 2.06, BMI: 37.79 kg/m2 Immunizations: Not recorded. Oxygen Sats 100% Performance Status ECOG or Karnofsky ECO Normal activity. Fully active, able to carry on all pre-disease performance without restriction. (Date: 12/21/2024) Karnofsky: Not recorded Physical Exam Neck: Supple, without masses, lymphadenopathy or tenderness. Respiratory: Normal respiratory effort. Lungs are clear with good breath sounds. Heart: RR without murmurs, rubs, or gallops. Abdomen: The abdomen was flat, soft and nontender without guarding rebound or masses. Nodes: no cervical, supraclavicular, axillary or inguinal adenopathy Extremities: Full ROM without limitation, deformity or edema. Skin right breast no abnormality ??? Left breast??thickening of breast noted??and dimpling of breast without any erythema or warmth??in the inferior quadrants lower ??? Palpable left breast lump??in the nipple and??mid quadrants inner, measuring up to 6 to 8 cm ?2 palpable axillar lymph nodes??freely mobile??not fixed or matted??1 measuring 2 cm 1 measuring 1 cm more superior Genetics/Molecular/Biomarkers Additional Labs, Imaging and Other Studies Lab Results Surveys/Consents/Other Discussions Thank you for allowing me to see JAZLYN BERMEO in consult. Dayton Whipple MD CC: ? Electronically signed by Dayton Whipple MD 12/21/2024 15:56 CDT
--- OUTSIDE RECORDS SUMMARY | 2025-02-06 01:11 | XMS_ITS | Encounter Summary ---
Author Organization [facility] Address [address] [place] [address] Care Team Providers Care Social Media Community Manager Name Role Phone Unavailable Primary Care Provider Unavailabl e Encounter Details Date Type Department Care Team (Latest Contact Info) Description 11/25/2024 Results Follow-Up Division of General Internal Medicine in [place], [place] [address] [place] [address] Pb Fish BI Breast Diagnostic Bilateral with Tomosynthesis Social History Tobacco Use Types Packs/Day Years [...] things needed for daily living? No 11/17/2024 [facility] Utilities Answer Date Recorded In the [...] (Latest Contact Info) Description 02/12/2025 8:45 AM STEAMFITTER SUPERVISOR Lab Department of Oncology in [place], [place] [address] [place] [phone] Bradley Booker M.D. [address] [place] [phone] 02/12/2025 11:30 AM STEAMFITTER SUPERVISOR Infusion Department of Oncology in [address] [phone] Bradley Booker M.D. [address] [place] [phone] 02/17/2025 9:15 AM STEAMFITTER SUPERVISOR Clinical Communication Virtual Review in [address] [phone] 02/18/2025 8:00 AM STEAMFITTER SUPERVISOR Lab Department of Oncology in [address] [phone] Bradely Booker M.D. [address] [place] [phone] 02/18/2025 10:00 AM STEAMFITTER SUPERVISOR Office Visit Division of Hematology in [address] [phone] Latrice Gomez M.D. [address] [place] [phone] 02/18/2025 10:30 AM STEAMFITTER SUPERVISOR Infusion Department of Oncology in [address] [phone] Bradley Booker M.D. [address] [place] [phone] 02/26/2025 7:00 AM STEAMFITTER SUPERVISOR Lab Department of Oncology in [place], [place] [address] [place] [address] Bradley Booker M.D. [address] [place] [phone] 02/26/2025 9:00 AM STEAMFITTER SUPERVISOR Infusion Department of Oncology in [place], [place] [address] [place] [address] Bradley Booker M.D. [address] [place] [phone] 03/05/2025 7:00 AM STEAMFITTER SUPERVISOR Lab Department of Oncology in [place], [place] [address] [place] [address] Bradley Booker M.D. [address] [place] [phone] 03/05/2025 9:00 AM STEAMFITTER SUPERVISOR Infusion Department of Oncology in [place], [place] [address] [place] [address] Bradley Booker M.D. [address] [place] [phone] 03/19/2025 10:30 AM STEAMFITTER SUPERVISOR Lab Department of Laboratory Medicine and Pathology, [facility], in [place], [place] [address] [place] [address] Bradley Booker M.D. [address] [place] [phone] 03/19/2025 2:00 PM STEAMFITTER SUPERVISOR Infusion Department of Oncology in [place], [place] [address] [place] [phone] Bradley Booker M.D. [address] [place] [phone] 03/23/2025 10:00 AM STEAMFITTER SUPERVISOR Telemedicine Division of Breast and Melanoma Surgical Oncology in [place], [place] [address] [place] [phone] Kell Craven APRN, C.N.P., D.N.P. [address] [place] [phone] 03/25/2025 3:20 PM STEAMFITTER SUPERVISOR Comprehensive Visit Department of Oncology in [place], [place] [address] [place] [phone] Kilo Patel APRN, C.N.P., D.N.P. [address] [place] [phone] 04/08/2025 9:30 AM STEAMFITTER SUPERVISOR Clinical Communication Virtual Review in [place], [place] 200 [place] [address] 04/09/2025 8:00 AM STEAMFITTER SUPERVISOR Lab Department of Oncology in [place], [place] [address] [place] [phone] Bradley Booker M.D. [address] [place] [phone] 04/09/2025 10:00 AM STEAMFITTER SUPERVISOR Office Visit Department of Oncology in [place], [place] [address] [place] [phone] Bradley Booker M.D. [address] [place] [phone] 04/09/2025 11:00 AM STEAMFITTER SUPERVISOR Infusion Department of Oncology in [place], [place] [address] [place] [phone] Bradley Booker M.D. [address] [place] [phone] documented as of this encounter Visit Diagnoses Not on filedocumented in this encounter Additional Health Concerns Infection Onset Date Last Indicated Resolved Time Protective Environment 12/11/2024 12/11/2024 documented as of this encounter
--- OUTSIDE RECORDS SUMMARY | 2025-02-06 01:12 | XMS_ITS | Encounter Summary ---
Author Organization [facility] Address [address] [place] [address] Care Team Providers Care Honing Job Setter Name Role Phone Unavailable Primary Care Provider Unavailabl e Reason for Visit * Reason Onset Date Comments Order Request 01/08/2025 Encounter Details Date Type Department Care Team ([facility] st Contact Info) Description 01/08/2025 Clinical Communication Department of Oncology in [place], [place] [address] [place] [phone] Bradley Booker M.D. [address] [place] [phone] Order Request Social History Tobacco Use Types Packs/Day [...] things needed for daily living? No 11/17/2024 [facility] Utilities Answer Date Recorded In the past 12 months has e electric, gas, oil, or water [email or web address] threatened to shut off services in your home? No 11/17/2024 Housing Stability Answer Date Recorded What is your living situation today? I have a [facility] place to live 11/17/2024 Comments No [...] (Latest Contact Info) Description 02/12/2025 8:45 AM WATERSHED COORDINATOR Lab Department of Oncology in [place], [place] [address] [place] [phone] Bradley Booker M.D. [address] [place] [phone] 02/12/2025 11:30 AM WATERSHED COORDINATOR Infusion Department of Oncology in [place], [place] [address] [place] [phone] Bradley Booker M.D. [address] [place] [phone] 02/17/2025 9:15 AM WATERSHED COORDINATOR Clinical Communication Virtual Review in [place], [place] [address] [place] [address] 02/18/2025 8:00 AM WATERSHED COORDINATOR Lab Department of Oncology in [place], [place] [address] [place] [phone] Bradley Booker M.D. [address] [place] [phone] 02/18/2025 10:00 AM WATERSHED COORDINATOR Office Visit Division of Hematology in [place], [place] [address] [place] [phone] Latrice Gomez M.D. [address] [place] [phone] 02/18/2025 10:30 AM WATERSHED COORDINATOR Infusion Department of Oncology in [place], [place] [address] [place] [phone] Bradley Booker M.D. [address] [place] [phone] 02/26/2025 7:00 AM WATERSHED COORDINATOR Lab Department of Oncology in [place], [place] [address] [place] [phone] Bradley Booker M.D. [address] [place] [phone] 02/26/2025 9:00 AM WATERSHED COORDINATOR Infusion Department of Oncology in [place], [place] [address] [place] [phone] Bradley Booker M.D. [address] [place] [phone] 03/05/2025 7:00 AM WATERSHED COORDINATOR Lab Department of Oncology in [place], [place] [address] [place] [phone] Bradley Booker M.D. [address] [place] [phone] 03/05/2025 9:00 AM WATERSHED COORDINATOR Infusion Department of Oncology in [place], [place] [address] [place] [phone] Bradley Booker M.D. [address] [place] [phone] 03/19/2025 10:30 AM WATERSHED COORDINATOR Lab Department of Laboratory Medicine and Pathology, [facility], in [place], [place] [address] [place] [address] Bradley Booker M.D. [address] [place] [phone] 03/19/2025 2:00 PM WATERSHED COORDINATOR Infusion Department of Oncology in [place], [place] [address] [place] [phone] Bradley Booker M.D. [address] [place] [phone] 03/23/2025 10:00 AM WATERSHED COORDINATOR Telemedicine Division of Breast and Melanoma Surgical Oncology in [place], [place] [address] [place] [phone] Kell Craven APRN, C.N.P., D.N.P. [address] [place] [phone] 03/25/2025 3:20 PM WATERSHED COORDINATOR Comprehensive Visit Department of Oncology in [place], [place] [address] [place] [phone] Kilo Patel APRN, C.N.P., D.N.P. [address] [place] [phone] 04/08/2025 9:30 AM WATERSHED COORDINATOR Clinical Communication Virtual Review in [place], [place] 200 [place] [address] 04/09/2025 8:00 AM WATERSHED COORDINATOR Lab Department of Oncology in [place], [place] [address] [place] [phone] Bradley Booker M.D. [address] [place] [phone] 04/09/2025 10:00 AM WATERSHED COORDINATOR Office Visit Department of Oncology in [address] [phone] Bradley Booker M.D. [address] [place] [phone] 04/09/2025 11:00 AM WATERSHED COORDINATOR Infusion Department of Oncology in [place], [place] [address] [place] [phone] Bradley Booker M.D. [address] [place] [address] documented as of this encounter Visit Diagnoses Not on filedocumented in this encounter Additional Health Concerns Infection Onset Date Last Indicated Resolved Time Protective Environment 12/11/2024 12/11/2024 documented as of this encounter
--- OUTSIDE RECORDS SUMMARY | 2025-02-06 01:12 | XMS_ITS | Data Portability ---
Author Organization [facility] Address [address] [place] [address] Assessment No assessment recorded. Plan of Treatment Reminders Order Date Submit Date Provider Last Modified By Organization Details Last Modified Time Details Appointments None recorded. Lab None recorded. Referral None recorded. Procedures None recorded. Surgeries None recorded. Imaging None recorded. Medication Orders ipratropium bromide 0.02 % solution for inhalation 2024 025 [id number] Not available 15:06:30 albuterol sulfate 2.5 mg/3 mL (0.083 %) solution for nebulizatio n 2024 025 [id number], [address] [place], [place], [phone], 13:56:48 Patient TargetsNo targets recorded. Patient InstructionsNo instructions recorded. Reason for Referral None Reported. Medical Equipment None Reported. Allergies No known drug allergies Medications Name Sig Start Date Stop Date Status Note LastModified by Organization Details LastModified Time dicloxacill in 500 mg capsule TAKE 1 CAPSULE BY MOUTH EVERY 6 HOURS FOR 10 DAYS 08/17 completed Not Available Not Available Not Available albuterol sulfate 2.5 mg/3 mL (0.083 %) solution for nebulizatio n INHALE 3ML VIA NEBULIZER EVERY 4-6 HOURS NEEDED FOR SHORTNESS OF BREATH active Not Available Not Available No t Available ibuprofen 800 mg tablet TAKE 1 TABLET BY MOUTH EVERY 8 HOURS active Not Available Not Available No t Available prednisone 20 mg tablet TAKE 1 TABLET BY MOUTH TWICE DAILY WITH FOOD OR MILK FOR 5 DAYS 08/17 completed Not Available Not Available Not Available acetaminoph en 500 mg tablet TAKE 2 TABLETS BY MOUTH EVERY 8 HOURS 08/17 completed Not Available Not Available Not Available docusate sodium 100 mg capsule TAKE 1 CAPSULE BY MOUTH TWICE DAILY active Not Available Not Available No t Available ipratropium bromide 0.02 % solution for inhalation administe r 2.5 mL via inhalatio n route once for asthma 2024 active Not Available Not Available Not Avai lable Advair HFA active Not Available Not Av ailable Not Available Proair Digihaler active Not Available Not Available No t Available Vitals Date Recorded Body height Body mass index (BMI) Body weight Body temperature Oxygen saturation Heart rate Systolic And Diastolic Provider Name and Address Organization Details Last Updated DateTime 5 163.83 cm 37.2 kg/m2 60034.3 2 g 98.1 [degF] 98 % 87 /min 118/70 mm[Hg] QUANG MCMANUS [facility] 5 13:23:42 Social History None recorded. Functional Status None recorded. Mental Status None recorded. Family History Nothing Reported. Medical History No medical history recorded. Gynecological HistoryNo gynecological history recorded. Obstetrics History GPAL:G 0 P 0 0 0 0 Past Encounters Encounter ID Performer Location Encounter Start Date Encounter Closed Date Diagnosis/Indication Diagnosis SNOMED-CT Code Diagnosis ICD10 Code Diagnosis IMO Codes Diagnosis Note [id number] [place] [address],[facility] [address] [place] [address] 08/17/2024 12:10:00 09/14/2024 07:51:56 Persistent cough 984635240 R05.3 923054 - sent home with nebulizer treatment and machine per patient's request- suspect the cough is from sinus drainage, given the significan t inferior turb hypertroph y and septal deviation causing AMY; recommende d that she continue the daily flonase and add daily azelastine as previously prescribed by her percussion welding machine operator- ER precaution s reviewed All questions answered, patient v/u and agrees with plan. Call with questions/ concerns, return to clinic prn Tight chest [id number] R07 .89 589429 Uncontrolled asthma 1290 338617 J45.909 [id number] O2 sats are 98% ORA; no wheezing on physical examcontin ue with f/u with [facility] in September to discuss increasing asthma maintenanc e regimen Health Concerns Section Related Observation LastModified by Organization Detai ls LastModified Time None Recorded Concern Status LastModified by Organization Details LastModified Time None Recorded Advance Directives Directive None Recorded Payers Insurance Date Sequence Insurance Name Policy Number Policy Booth Covered Member ID Booth Member ID Guarantor Name 09/14/2024 1 [facility] [facility] () Timi Martin [id number] Jazlyn Martin Notes Date Note Type Note Provider Name and Address Organization Details Recorded Time 08/17/2024 text/html Wheezing/AsthmaR ep orted by PatientROS as noted in the HPI 39 y/o female presents to clinic c/o tightness when breathing.- has asthma, sees [facility] for this. Has been using her inhalers as prescribed- usually only needs her albuterol inhaler 1-2x/week; however today alone she has already used it 4 times- uses flonase daily, pt states her percussion welding machine operator has told her to use azelastine daily as well but she does not adhere to this- pt reports she has been much more stressed lately, thinks that is what is causing her asthma exacerbation- she would like a nebulizer treatment today; she states she feels like the nebulizer stays in her system longer than the inhalers do- recently finished 5 day course of prednisone, sees her percussion welding machine operator again on September 15 (-) fevers, sinus pain/pressure, n/v/d, abdominal pain, sore throat, mouth sores, CP, orthopnea, weaknessAll other ROS negative SHAQUILLE Kay [address], [place], [address], [place] [facility] 08/17/2024 20:31:17 OBGyn Episode No OBEpisode recorded.
[2025-02-06 02:14] VITALS: BP 109/70; PULSE 90; RESP 18; O2SAT 100
== END 2025-02-06 02:53 | disposition home or self-care (01) ==
PROVIDERS: Family Medicine; Emergency Provider Family Medicine
DX: R50.9 Fever, unspecified (principal); C50.919 Malignant neoplasm of unspecified site of unspecified female breast; Z92.21 Personal history of antineoplastic chemotherapy
CPT/HCPCS: 36415; 71046; 80048; 80076; 81001; 83735; 85025; 87040; 87631; 96360; 96361; 99284; J7030